=== PATIENT | male | born 1940 | race Caucasian/White ===

== ENCOUNTER → 2016-07-09 | Outpatient (CLI) | payer MEDICARE ==
[2016-07-09 09:12] LABS: CH 33.4; CHCM 32.7; HCT 41.5 % (39.0-53.0); HDW 2.21; HGB 13.5 gm/dL (13.0-17.5); MCH 33.3 pg (25.0-35.0); MCHC 32.4 g/dL (31.0-37.0); MCV 102.6 fL (80.0-100.0); Macrocytosis Slight; Mean Platelet Volume 6.8; RBC 4.05 m/uL (4.30-5.90); RDW 14.9 % (11.5-15.5)
[2016-07-09 09:52] LABS: Anion Gap 9 mmol/L; Blood Urea Nitrogen 39 mg/dL (9-20); Carbon Dioxide 27 mmol/L (22-30); Chloride 105 mmol/L (98-107); Non-African American GFR(MDRD) 55 (>60 ml/min/1.73 sqM); Sodium 141 mmol/L (137-145)
== END | disposition home or self-care (01) ==
LOC: LABWHC1 08:44
PROVIDERS: ATTEND Internal Medicine Interventional Cardiology
DX: Z01.812 Encounter for preprocedural laboratory examination (principal); R94.39 Abnormal result of other cardiovascular function study
CPT/HCPCS: 36415; 80051; 82565; 84520; 85027

== ENCOUNTER 2016-07-15 07:01 | Day surgery (SDC) | payer MEDICARE, OTHER ==
[2016-07-11 15:46] VITALS: BMI 26.9
[~2016-07-15 07:01] MED LIST: ALPRAZolam 0.25 MG TAB PO PRN; ALPRAZolam 0.5 MG TAB PO PRN; ASPIRIN 325 MG TAB PO STA; ATORVASTATIN 80 MG TAB PO STA; NITROGLYCERIN SL TABS 0.4 MG TAB SUBLINGUAL PRN; SODIUM CHLORIDE 0.9% 1,000 ML in EMPTY BAG 1 BAG IV ONE
[2016-07-15] MEDS ORDERED: SODIUM CHLORIDE 0.9% 1,000 ML IV SCH ×2 (07:30→12:00)
[2016-07-15 08:13] LABS: INR 1.1 (<1.1); Prothrombin Time 11.1 sec (9.0-12.0)
[2016-07-15 08:30] VITALS: TEMP 97.7
[2016-07-15] MEDS ORDERED: LIDOCAINE 2% INJ 20 MG/ML (20 ML MDV) ONE (10:01)
[2016-07-15] MEDS ORDERED: diphenhydrAMINE 50 MG/ML 1 ML VIAL ONE (10:01)
[2016-07-15] MEDS ORDERED: MIDAZOLAM 2 MG/2 ML VIAL ONE (10:01)
[2016-07-15] MEDS: MIDAZOLAM 2 MG/2 ML VIAL IV ONE ×2 (10:57→11:18)
[2016-07-15] MEDS ORDERED: LIDOCAINE 2% INJ 20 MG/ML SQ ONE (11:02)
[2016-07-15] MEDS ORDERED: IOHEXOL 350 MG/ML 125ML BOTTLE INJ ONE (11:43)
[2016-07-15] MEDS ORDERED: RX INFO: IV CONTRAST WAS GIVEN 1 EACH MISC MISCELLANE PRN (11:59)
--- NOTE | 2016-07-15 13:55 | CC ---
DATE OF SERVICE: 07/15/2016 PROCEDURE: Left heart catheterization, coronary angiography and selective injection of bypass grafts. PERFORMED BY: Dr. Wilbert Christiansen. CLINICAL INFORMATION: Mr. Khari Morales is a 76-year-old gentleman with a known history of hypertension, hyperlipidemia, chronic adrenal insufficiency who underwent aortocoronary bypass surgery that was performed in 1994 with RAMIREZ to LAD and a vein graft to the diagonal. In January 2014 and the diagonal graft was highly diseased and the ostium, but RAMIREZ was patent and there was ostial stenosis of left main of 70%. I performed stenting of the ostium of the left main. Recent stress revealed anteroapical reversible defect. He was therefore advised cardiac catheterization. Risks, benefits, options, rationale were discussed. PROCEDURE NOTE: Under local anesthesia and strict aseptic precautions, a 6 Pakistani introducer was placed in the right femoral artery. Patient had extreme tortuosity and I had to use multiple dilators and Amplatz wire and the long sheath. Using standard left Jared catheter, I performed selective coronary angiography of the left system. I used a standard right of her right coronary artery then a Mer catheter for the RAMIREZ and I tried to get selective injection of the vein graft to the diagonal but I got subselective injection with a AR-2. LV pressures were checked but LV gram was not performed. The sheath was then taken out and Angio-Seal device used to secure hemostasis and patient was sent to the room in stable condition. He was advised continued medical therapy. It appears that the vein graft to the diagonal is occluded. Patient received moderate conscious sedation for a total duration of 45 minutes. He was monitored closely and his oxygenation was good. CARDIAC CATHETERIZATION FINDINGS: The left ventricle end-diastolic pressure was in the normal range. CORONARY ANGIOGRAPHIC FINDINGS: RIGHT CORONARY ARTERY: The right coronary artery is a nondominant vessel, minor irregularities. No significant disease. LEFT MAIN CORONARY ARTERY: This vessel is widely patent. The ostium at the site of stenting has no more than 20% stenosis with good flow. The 2 obtuse marginal branches are opacified. The second obtuse marginal was stented, widely patent, distal posterolateral branch are also free of significant disease. Circumflex system appears to be patent. Left internal mammary artery graft: This graft is widely patent and opacifies the entire LAD and supplies a sizable amount of myocardium, but the diagonal vessel was not opacified. Left anterior descending coronary artery: This vessel is totally occluded after comes off from the left main and no antegrade flow was noted. Left posterior circumflex coronary artery: Good caliber vessel. It gives off a small obtuse marginal proximally with second obtuse marginal was stented is patent and distal posterolateral branch free of significant disease. Saphenous vein graft to diagonal branch: This graft was subselectively injected and is found to be totally occluded. 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 The stented segment involving the ostium of the left main is widely patent. RAMIREZ is patent and [place] RCA, which is nondominant is free of significant disease. RECOMMENDATIONS: I am recommending aggressive medical therapy without any percutaneous intervention. Findings were discussed with the patient and and he will be discharged later on today if he remains stable. I will be seeing him in the office in one week.
--- NOTE | 2016-07-15 13:57 | LTR ---
July 15, 2016 RE: Khari Morales Mayur Dear Dr. Coello: Thank you for the opportunity to participate in the care of Mr. Khari Morales. I am pleased to report to you that this gentleman had coronary angiography which revealed that the previously stented left main was widely patent. His RAMIREZ to LAD is patent, and the [place] RCA is a small nondominant and disease-free. The vein graft to the diagonal is occluded and this may represent area of ischemia seen on the stress test. I am recommending continued medical therapy without intervention. This is graft that is 22 years old and no intervention necessary for this and I could not selectively inject suggests that the graft is occluded and this was highly diseased in 2013. We will therefore pursue medical therapy and no intervention necessary. Thank you for your referral. Please call for questions. With kind personal regards, Sincerely, KALE BALDWIN MD
[2016-07-15] MEDS ORDERED: ACETAMINOPHEN TAB 325 MG TAB PO STA (17:29)
[2016-07-15 17:44] VITALS: RESP 18
[2016-07-15 18:17] VITALS: PULSE 60
[2016-07-15 18:19] VITALS: BP 100/69
--- NOTE | 2016-07-16 07:52 | ECHOF ---
Referral Reason:CAD, previous CABG MEASUREMENTS -------- HEIGHT: 170.2 cm WEIGHT: 78.0 kg BP: 102/67 RVIDd: 3.7 cm (< 3.3) IVSd: 1.4 cm (0.6 - 1.1) LVIDd: 3.7 cm (3.9 - 5.3) LVPWd: 1.4 cm (0.6 - 1.1) IVSs: 1.8 cm LVIDs: 3.2 cm LVPWs: 1.7 cm LA Diam: 3.8 cm (2.7 - 3.8) LAESV Index (A-L): 19.66 ml/m Ao Diam: 4.0 cm (2.0 - 3.7) AV Cusp: 1.1 cm (1.5 - 2.6) MV EXCURSION: 7.809 mm (> 18.000) MV EF SLOPE: 41 mm/s (70 - 150) EPSS: 1.5 cm MV E [place]win: 0.70 m/s MV DecT: 307 ms MV A [place]win: 0.92 m/s MV E/A Ratio: 0.76 AV maxP.99 mmHg AV meanP.49 mmHg RAP: 5.00 mmHg RVSP: 24.33 mmHg FINDINGS -------- Sinus rhythm. This was a technically adequate study. The left ventricular size is normal. There is moderate concentric left ventricular hypertrophy. Overall left ventricular systolic function is low-normal with, an EF between 50 - 55 %. The right ventricle is mildly enlarged. Normal LA size by volume 22+/-6 ml/m2. The right atrium is normal in size. There is mild to moderate aortic valve sclerosis. There is mild aortic regurgitation. There is mild aortic stenosis present. Peak/mean gradient across the Aortic Valve is 17.99mmHg / 10.49mmHg. The mitral valve leaflets are mildly thickened. Mild mitral annular calcification present. Mild mitral regurgitation is present. Mild tricuspid regurgitation present. Right ventricular systolic pressure is normal at < 35 mmHg. Trace/mild (physiologic) pulmonic regurgitation. The aortic root is dilated measuring 4.0cm. Ascending AO up to 44 mm Normal inferior vena cava with normal inspiratory collapse consistent with estimated right atrial pressure of 5 mmHg. The pericardium is normal. CONCLUSIONS -------- 1. Sinus rhythm. 2. There is mild aortic stenosis present. 3. Peak/mean gradient across the Aortic Valve is 17.99mmHg / 10.49mmHg. 4. The mitral valve leaflets are mildly thickened. 5. Mild mitral annular calcification present. 6. Mild mitral regurgitation is present. 7. Mild tricuspid regurgitation present. 8. Right ventricular systolic pressure is normal at < 35 mmHg. 9. Trace/mild (physiologic) pulmonic regurgitation. 10. The aortic root is dilated measuring 4.0cm. 11. Ascending AO up to 44 mm 12. This was a technically adequate study. 13. Normal inferior vena cava with normal inspiratory collapse consistent with estimated right atrial pressure of 5 mmHg. 14. The pericardium is normal. 15. The left ventricular size is normal. 16. There is moderate concentric left ventricular hypertrophy. 17. Overall left ventricular systolic function is low-normal with, an EF between 50 - 55 %. 18. The right ventricle is mildly enlarged. 19. Normal LA size by volume 22+/-6 ml/m2. 20. There is mild to moderate aortic valve sclerosis. 21. There is mild aortic regurgitation. PUBLIC SAFETY OFFICER: Dafne Juarez RDCS
== END 2016-07-15 18:05 | disposition home or self-care (01) ==
LOC: CATHCVL 07:01
PROVIDERS: ATTEND Internal Medicine Interventional Cardiology
DX: I25.720 Atherosclerosis of autologous artery coronary artery bypass graft(s) with unstable angina pectoris (principal); I25.82 Chronic total occlusion of coronary artery; I08.3 Combined rheumatic disorders of mitral, aortic and tricuspid valves; T82.855A Stenosis of coronary artery stent, initial encounter; E27.49 Other adrenocortical insufficiency; I10 Essential (primary) hypertension; I47.1 Supraventricular tachycardia; I48.0 Paroxysmal atrial fibrillation; Z82.49 Family history of ischemic heart disease and other diseases of the circulatory system; E78.00 Pure hypercholesterolemia, unspecified; Z95.5 Presence of coronary angioplasty implant and graft; E03.9 Hypothyroidism, unspecified; Z79.82 Long term (current) use of aspirin; Z79.899 Other long term (current) drug therapy; Z88.2 Allergy status to sulfonamides
CPT/HCPCS: 93306; 93459; 85610; 99152; 99153 ×2; C1769 ×4; C1760; C1894 ×2; J2001; J2250; Q9967

== ENCOUNTER → 2016-07-30 | Outpatient (CLI) | payer MEDICARE ==
[2016-07-30 12:12] LABS: ALT 43 U/L (21-72); AST 31 U/L (17-59); Alkaline Phosphatase 52 U/L (38-126); Anion Gap 9 mmol/L; Blood Urea Nitrogen 39 mg/dL (9-20); Calcium 9.9 mg/dL (8.4-10.2); Carbon Dioxide 27 mmol/L (22-30); Chloride 103 mmol/L (98-107); Glucose 91 mg/dL (74-99); Non-African American GFR(MDRD) 51 (>60 ml/min/1.73 sqM); Potassium 4.6 mmol/L (3.5-5.1); Sodium 139 mmol/L (137-145); Total Bilirubin 0.7 mg/dL (0.2-1.3); Total Protein 6.7 g/dL (6.3-8.2)
== END | disposition home or self-care (01) ==
LOC: LABWHC1 11:05
PROVIDERS: ATTEND Internal Medicine Endocrinology, Diabetes & Metabolism
DX: E03.9 Hypothyroidism, unspecified (principal); I10 Essential (primary) hypertension; E55.9 Vitamin D deficiency, unspecified
CPT/HCPCS: 36415; 80053; 82306; 84402; 84403; 84439; 84443

== ENCOUNTER → 2016-09-04 | Outpatient (CLI) | payer MEDICARE | END | disposition home or self-care (01) | LOC: LABPAT 11:51 | PROVIDERS: ATTEND Orthopaedic Surgery | DX: Z01.812 Encounter for preprocedural laboratory examination (principal) | CPT/HCPCS: 87070 ==

== ENCOUNTER 2016-09-30 06:39 | Inpatient (IN) | payer MEDICARE ==
[2016-09-22 10:54] VITALS: BMI 27.4
--- NOTE | 2016-09-29 12:29 | HP ---
CHIEF COMPLAINT: Left shoulder pain. HISTORY OF PRESENT ILLNESS: The patient is a 76-year-old right hand dominant male who presents with progressive left shoulder pain worsening over the past several years. He notes he is having pain with any attempted use and at night. He has tried injections along with medications with only partial temporary relief. Past medical history is significant for heart disease, Schley's disease, hypothyroidism, hyperlipidemia and hypertension. PAST SURGICAL HISTORY: Significant for coronary artery bypass grafting, multiple cardiac stents, hernia repair, sinus surgery and tonsillectomy. CURRENT MEDICATIONS: 1. Atorvastatin. 2. Aspirin. 3. Plavix. 4. Coumadin. 5. Oral steroids. 6. Synthroid. He notes allergies to SULFA. FAMILY HISTORY: Significant for heart disease. SOCIAL HISTORY: Negative for current tobacco or alcohol use. Sixteen-point review of systems, otherwise, reviewed and is noncontributory. On examination, the patient is approximately 5 feet 6 inches, 180 pounds of mesomorphic habitus. HEENT exam is nonfocal. Neck is supple. On examination of his left shoulder, he is tender about the anterior glenohumeral joint. He has moderate subacromial crepitus. Active range of motion. Forward elevation 95 degrees, external rotation with arm to side 10 degrees, internal rotation to L5. Passively may be able to forward elevate him to 100 degrees. Motor strength is 5 minus over 5 for abduction and external rotation. Davis, Neer, and speed test are positive. His distal neurovascular exam appears to be intact in the left upper extremity. Two views of the left shoulder obtained in the office show severe glenohumeral joint osteoarthrosis with maintained humeral head to ( ) distance. IMPRESSION: 1. Severe left glenohumeral joint osteoarthrosis. 2. History of heart disease and atrial fibrillation on chronic anticoagulation. 3. History of Schley's disease. RECOMMENDATIONS: I talked to the patient at length regarding his treatment options. At this time point, he opts to proceed with surgery. We will plan to proceed with left total shoulder arthroplasty. We will reinstitute his Coumadin therapy postoperatively. He underwent preoperative cardiac evaluation by Dr. Wilbert Christiansen. [facility]
[~2016-09-30 06:39] MED LIST changes: +ACETAMINOPHEN TAB 500 MG TAB PO ONE; -ALPRAZolam 0.25 MG TAB PO PRN; -ALPRAZolam 0.5 MG TAB PO PRN; -ASPIRIN 325 MG TAB PO STA; -ATORVASTATIN 80 MG TAB PO STA; +DEXAMETHASONE SOD PHOSPHATE 10 MG/ML 1 ML VIAL IV ONE; +HYDROmorphone 1 MG/ML 1 ML SYRINGE IVP PRN; +MELOXICAM 7.5 MG TAB PO ONE; +MIDAZOLAM 2 MG/2 ML VIAL IV PRN; -NITROGLYCERIN SL TABS 0.4 MG TAB SUBLINGUAL PRN; +ONDANSETRON 4 MG/2 ML VIAL IVP ONE; -SODIUM CHLORIDE 0.9% 1,000 ML in EMPTY BAG 1 BAG IV ONE; +TRANEXAMIC ACID 1,000 MG in SODIUM CHLORIDE 0.9% 100 ML IVPB ONE; +ceFAZolin 2 GM in SODIUM CHLORIDE 0.9% 100 ML IVPB ONE
[2016-09-30] MEDS: LACTATED RINGERS 1,000 ML IV SCH (07:10)
[2016-09-30] MEDS ORDERED: LIDOCAINE 1% 20 ML VIAL (10MG/ML) FOR IV START INTRADERMA ONE (07:10)
[2016-09-30 07:15] LABS: Glucose,Whole Blood 93 mg/dL (75-99)
[2016-09-30] MEDS ORDERED: HYDROCORTISONE SUCCINATE 100 MG/2 ML VIAL IV ONE (07:17)
[2016-09-30] MEDS ORDERED: MIDAZOLAM 2 MG/2 ML VIAL IV ONE (07:29)
[2016-09-30 07:32] LABS: INR 1.2 (<1.2); Partial Thromboplastin Time 25.9 sec (22.0-30.0); Prothrombin Time 12.3 sec (9.0-12.0)
[2016-09-30] MEDS ORDERED: fentaNYL (PF) 50 MCG/ML 2 ML AMP ONE (08:00)
[2016-09-30] MEDS ORDERED: GLYCOPYRROLATE 0.2 MG/ML 2 ML VIAL ONE (08:00)
[2016-09-30] MEDS ORDERED: SUCCINYLCHOLINE CHLORIDE 100 MG/5 ML SYR IV ONE (08:00)
[2016-09-30] MEDS ORDERED: LIDOCAINE 1% INJ 10MG/ML (20 ML MDV) ONE (08:00)
[2016-09-30] MEDS ORDERED: PHENYLEPHRINE-0.9% NACL SYG 1 MG/10 ML SYRINGE ONE (08:00)
[2016-09-30] MEDS ORDERED: PROPOFOL 10 MG/ML 20 ML VIAL IV ONE (08:00)
[2016-09-30] MEDS ORDERED: ROCURONIUM BROMIDE 10 MG/ML 10 ML VIAL IV ONE (08:00)
[2016-09-30] MEDS ORDERED: NEOSTIGMINE 1 MG/ML 10 ML VIAL ONE (08:00)
[2016-09-30] MEDS ORDERED: ceFAZolin 3,000 MG in SODIUM CHLORIDE 0.9% IRRIGATIO 3,000 ML IRRIGATION ONE (08:44)
[2016-09-30] MEDS ORDERED: LACTATED RINGERS 1,000 ML IV ONE ×3 (09:21→11:04)
[2016-09-30] MEDS ORDERED: HYDROcodone/APAP 5-325MG 1 EACH TAB PO PRN (09:58)
[2016-09-30] MEDS ORDERED: ONDANSETRON 4 MG/2 ML VIAL IVP PRN (09:58)
[2016-09-30] MEDS ORDERED: HYDROmorphone 1 MG/ML 1 ML SYRINGE IVP PRN (09:58)
[2016-09-30] MEDS ORDERED: SENNOSIDES-DOCUSATE SODIUM 1 EACH TAB PO PRN (09:58)
--- NOTE | 2016-09-30 10:35 | P.OP ---
Date of Procedure: 09/30/16 Preoperative Diagnosis: Severe left glenohumeral joint osteoarthrosis Postoperative Diagnosis: Same Procedure(s) Performed: Left total shoulder arthroplasty Implants: [employer] AP size 12 press-fit humeral stem and body, 52 mm +18 eccentric humeral head, 52 mm cemented pegged glenoid. Anesthesia: OJ Surgeon: Miguel Angel Downs Marine Diesel Mechanic #1: Roberto Elizabeth Estimated Blood Loss (ml): 200 Pathology: other (Humeral head) Condition: stable Disposition: PACU Indications for Procedure: The patient is a 76-year-old male who presents with progressive left shoulder pain secondary to osteoarthrosis despite conservative measures. A discussion of the risks and benefits of operative intervention versus continued conservative measures was made with the patient. He opted to proceed with surgery. Operative risks to include infection, neurovascular injury, development of blood clots, possible dislocation, possible component loosening and need for subsequent procedures was discussed. Informed consent was obtained. Operative Findings: As below Description of Procedure: The patient was brought to the operating room, and after induction of general anesthesia was placed into a beachchair position. The bony prominences were appropriately padded. The left upper extremity was prepped and draped in normal fashion. A deltopectoral incision was made starting lateral to the coracoid process extending approximately 12 cm. The skin was incised sharply. Subcu change tissues were divided bluntly. Electrocautery was used for hemostasis. The cephalic vein was identified and gently retracted laterally with the deltoid. Subdeltoid adhesions were bluntly dissected. The upper one third of the pectoralis tendon was released to facilitate exposure. The biceps tendon was identified and bicipital groove opened. The biceps was tenotomized and allowed to retract distally. The rotator interval was opened to level the glenoid. A lesser tuberosity osteotomy was then performed with a sagittal saw. The head was then exposed by releasing the capsule directly off the humeral neck. The head was then dislocated. A starting hole was made in line with the humeral shaft and the shaft was reamed by hand up to a size 12. There was good distal fit and chatter. The cutting guide was utilized in line with the rotator cuff insertion. 30 of retroversion was planned. The head was then resected with a sagittal saw. The remaining osteophytes were removed flush with the cortical bone. Attention was then paid towards preparing the glenoid. A retractor was placed anterior and posteriorly. The labral tissue was released from the 6:00 to 12 o'clock position. I had good glenoid exposure at this point. A starting pin was placed in the central portion of the glenoid. A 52 mm reamer was utilized taking this down to bleeding bony surface. Central peg hole was drilled. The alignment guide was placed. The peripheral peg holes were drilled. The trial size 52 component was placed and had good anterior to posterior and inferior to superior fit. The trial component was then removed. The peripheral peg holes were pressurized with cement. Excess cement was removed. The size 52 central peg glenoid was inserted. This was impacted. This is held in place until the cement had sufficiently hardened. Attention was then paid towards preparing the proximal humerus. A size 12 broach was inserted in 30 of retroversion was fully seated. The trial size 12 humeral stem was inserted in the same orientation and an eccentric 52 x 18 mm trial head was placed. The shoulder was gently reduced. It was taken through range of motion. Had good stability in flexion and extension with internal and external rotation. I felt there was adequate uatsdin of soft tissue tension. Shoulder was dislocated. The trial components were then removed. The final humeral stem was inserted again at 30 of retroversion and was fully seated. There was good rotational stability. The eccentric 52 mm x 18 mm humeral head was gently impacted in the same orientation. The shoulder was gently reduced. Again it was taken through range of motion felt to be stable. All style lavage was utilized. The lesser tuberosity osteotomy was repaired with #2 Ethibond suture. The rotator interval was repaired with #2 Ethibond suture. The deltopectoral interval was closed with interrupted 2-0 Vicryl sutures. The subcutaneous tissues were reapproximated with interrupted 2-0 Vicryl sutures. The skin was reapproximated 3-0 subcuticular strata fix suture. Skin tape and adhesive was applied. A sterile dressing was applied in addition to a sling. The patient was awoken from general anesthesia and transferred to recovery room in good condition. Blood loss estimated 200 mL. No complications were incurred. Sponge and needle counts were correct in the case.
[2016-09-30 10:50] LABS: Glucose,Whole Blood 126 mg/dL (75-99)
--- NOTE | 2016-09-30 11:45 | XR ---
Limited left shoulder HISTORY: Postop Single frontal view of the left shoulder, no comparisons Patient is status post left shoulder arthroplasty. There is anatomic alignment. Lucency is present in the soft tissues. Overlying cardiac leads. Basilar atelectatic changes are present. IMPRESSION: Orthopedic follow-up
[2016-09-30] MEDS ORDERED: NITROGLYCERIN SL TABS 0.4 MG TAB SUBLINGUAL PRN (16:12)
[2016-09-30] MEDS ORDERED: LEVOTHYROXINE 50 MCG TAB PO SCH (16:15)
[2016-09-30 16:23] LABS: Glucose,Whole Blood 113 mg/dL (75-99)
[2016-09-30] MEDS: ceFAZolin 2 GM in SODIUM CHLORIDE 0.9% 100 ML IVPB SCH (16:59)
[2016-09-30] MEDS ORDERED: WARFARIN 7.5 MG TAB PO SCH (18:00)
[2016-09-30] MEDS ORDERED: LACTATED RINGERS 250 ML IV ONE (18:21)
[2016-09-30] MEDS: HYDROmorphone 1 MG/ML 1 ML SYRINGE IVP PRN (18:33)
[2016-09-30] MEDS ORDERED: WARFARIN 5 MG TAB PO ONE (19:30)
[2016-09-30] MEDS ORDERED: PRAMIPEXOLE 1 MG TAB PO SCH (21:00)
[2016-10-01] MEDS: ceFAZolin 2 GM in SODIUM CHLORIDE 0.9% 100 ML IVPB SCH (00:04)
[2016-10-01] MEDS: HYDROmorphone 1 MG/ML 1 ML SYRINGE IVP PRN (06:14)
[2016-10-01] MEDS ORDERED: LEVOTHYROXINE 25 MCG TAB PO SCH (06:30)
[2016-10-01 07:34] LABS: Basophils % (A) 0 %; CH 33.7; CHCM 32.8; Eosinophils % (A) 0 %; HCT 30.1 % (39.0-53.0); HDW 2.35; HGB 9.8 gm/dL (13.0-17.5); Luc # (Auto) 0.17; Luc % (Auto) 2; Lymphocytes # (A) 2.2 k/uL (1.0-4.8); Lymphocytes % (A) 27 %; MCH 33.5 pg (25.0-35.0); MCHC 32.5 g/dL (31.0-37.0); Macrocytosis Slight; Mean Platelet Volume 6.8; Monocytes # (A) 0.5 k/uL (0-1.0); Monocytes % (A) 6 %; Neutrophils # (A) 5.2 k/uL (1.3-7.7); Neutrophils % (A) 64 %; RBC 2.92 m/uL (4.30-5.90); RDW 13.2 % (11.5-15.5); WBC 8.1 k/uL (3.8-10.6); WBC (Perox) 8.27
[2016-10-01 07:39] LABS: INR 1.2 (<1.2); Prothrombin Time 11.8 sec (9.0-12.0)
--- NOTE | 2016-10-01 07:50 | CONS ---
DATE OF SERVICE: 09/30/2016 REASON FOR CONSULTATION: Medical management requested by Dr. Downs. CONSULTATION: This is a very pleasant 76-year-old patient of Dr. Coello. Chronic stable medical conditions include atrial fibrillation, coronary artery disease, gastroesophageal reflux disease, obstructive sleep apnea uses CPAP machine, hypothyroidism, Addisons disease, restless leg syndrome, depression and has dilated right pupil and aortic aneurysm. Underwent a total left shoulder arthroplasty. Some pain is present. No nausea or vomiting. Postoperative did drop his blood pressure to 90s systolic and I ordered a fluid bolus. Denies any chest pain or shortness of breath. Sitting up in bed though tired appearing. is at the bedside. REVIEW OF SYSTEMS: CONSTITUTIONAL: Tired. HEENT: Decreased hearing. RESPIRATORY: None. CARDIOVASCULAR: None. GASTROINTESTINAL: Heartburn. GENITOURINARY: None. MUSCULOSKELETAL: Pain in different joints. DERMATOLOGICAL: None. HEMATOLOGICAL: None. LYMPHATIC: None. PSYCHIATRY: Depression controlled. NEUROLOGICAL: None. PAST HISTORY: Atrial fibrillation, coronary artery disease, gastroesophageal reflux disease, osteoarthritis, obstructive sleep apnea, hypothyroidism, [place] disease, restless leg syndrome, depression, right fixed pupil. PAST SURGICAL HISTORY: Appendectomy, coronary bypass, cardiac cath with stent, septoplasty, bilateral cataract surgery, bilateral retina surgery. SOCIAL HISTORY: No smoking, no alcohol. Patient was a preacher. FAMILY HISTORY: DVT. HOME MEDICATIONS: 1. Requip 0.5 mg p.o. q.h.s. 2. Coumadin 3.75 mg Thursday, Thursday and Thursday and 7.5 mg Thursday, Thursday, and Thursday. 3. Mirapex 1 mg p.o. q.h.s. 4. Nitrostat 0.4 sublingual q.5 p.r.n. 5. Metoprolol 75 mg p.o. daily. 6. Synthroid 50 mcg Thursday, Thursday, , Thursday, Thursday and 25 mcg on Thursday and Thursday. 7. Cortef 10 mg at 4:00 p.m. and 20 mg in the morning. 8. Florinef 1 mg Thursday, , Thursday and Thursday. 9. Prozac 10 mg p.o. daily. 10. Vitamin D2 50,000 units p.o. monthly. 11. Plavix 75 mg p.o. daily. 12. Calcium 1200 mg p.o. daily. 13. Lipitor 40 mg p.o. daily. 14. Aspirin 81 mg p.o. daily. 15. Tylenol. ALLERGIES TO BEE POLLEN, SULFA, WASP. On examination, temperature 96, pulse 93, respirations 17, blood pressure 197/50 , pulse ox 96% on room air. GENERAL APPEARANCE: Average built, sitting up, awake, tired appearing. EYES: Pupils equal, conjunctivae normal. HEENT: External appearance of nose and ears normal. Oral cavity normal. NECK: JVD not raised. Mass not palpable. RESPIRATORY: Effort normal. LUNGS: Fair entry. CARDIOVASCULAR: Fist and second sounds are normal. No edema. ABDOMEN: Soft, nontender. Liver and spleen not palpable. LYMPHATIC: No lymph node in neck or axillae. PSYCHIATRIC: Alert, oriented x3. Mood and affect normal. EXTREMITIES: Left shoulder has dressing. Left arm in support. Sensation in the hand is present. INVESTIGATIONS: INR 1.2, Accu-Cheks are noted. ASSESSMENT: 1. Left total shoulder arthroplasty. 2. Paroxysmal atrial fibrillation. 3. Coronary artery disease with history of bypass and stent. 4. Gastroesophageal reflux disease. 5. 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 6. Obstructive sleep apnea uses a CPAP machine. 7. Addisons disease. 8. Restless leg syndrome. 9. Right pupil is fixed. 10. Hypothyroidism. 11. Depression, not otherwise specified. 12. Aortic aneurysm. PLAN: Patients Coumadin could be resumed when okay with Orthopedics. Home medications otherwise to be resumed. Care was discussed with the patient. Patient to use h is CPAP machine. When discharged he is to follow up with his family doctor, Dr. Coello. Care was discussed with patients . Questions were answered. Thank you Dr. Downs. [facility]
[2016-10-01] MEDS: LACTATED RINGERS 1,000 ML IV SCH (08:34)
[2016-10-01] MEDS ORDERED: CLOPIDOGREL 75 MG TAB PO SCH (09:00)
[2016-10-01] MEDS ORDERED: METOPROLOL TARTRATE 25 MG TAB PO SCH (09:00)
[2016-10-01] MEDS ORDERED: FLUDROCORTISONE 0.1 MG TAB PO SCH (09:00)
[2016-10-01] MEDS ORDERED: CALCIUM CARBONATE 500 MG CHEWABLE PO SCH (09:00)
[2016-10-01] MEDS ORDERED: HYDROCORTISONE 10 MG TAB PO SCH ×2 (09:00→16:00)
[2016-10-01] MEDS ORDERED: ATORVASTATIN 40 MG TAB PO SCH (09:00)
[2016-10-01] MEDS ORDERED: FLUoxetine HCL 10 MG CAP PO SCH (09:00)
[2016-10-01 11:08] VITALS: PULSE 97
--- NOTE | 2016-10-01 11:35 | P.PN ---
Subjective Principal diagnosis: Status post left total shoulder arthroplasty Patient is seen today resting in his hospital bed, he appears comfortable. Pain is well-controlled with current medication. He denies headaches, lightheadedness, chest pain, shortness of breath, or chills. Objective - Vital Signs Vital signs: Vital Signs Temp 97.3 F L 10/01/16 08:30 Pulse 88 10/01/16 08:30 Resp 18 10/01/16 08:30 BP 86/54 10/01/16 08:30 Pulse Ox 94 L 10/01/16 08:30 Intake & Output 09/30/16 10/01/16 10/01/16 18:59 06:59 18:59 Intake Total 3186 700 350 Output Total 600 1200 1200 Balance 2586 500 -850 Weight 77.111 kg 77.111 kg Intake: IV 1826 Intake, IV Titration 40 700 Amount Lactated Ringers 1,000 ml 40 @ 20 mls/hr IV .Q24H [facility] Rx#:[id number] Lactated Ringers 1,000 ml 600 As IV .[facility] ONE Rx#: [id number] ceFAZolin 2 gm In Sodium 100 Chloride 0.9% 100 ml @ 100 mls/hr IVPB ONCE ONE Rx#:[id number] Oral 1320 350 Output: Urine 400 1200 1200 Estimated Blood Loss 200 Other: Voiding Method Indwelling Catheter Indwelling Catheter Indwelling Catheter - Exam Left upper extremity: Initial postoperative bandage is removed, incisions clean, dry, and intact. There is ecchymosis and swelling present noted in the upper arm, more on the medial aspect trending toward elbow. Wrist extension and flexion are intact, he is able to pronate and supinate fully at the wrist. He can make a full fist with no difficulty. Sensation to light touch throughout extremities intact, radial pulses 2+. - Labs CBC & Chem 7: 10/01/16 07:16 Labs: Abnormal Lab Results - Last 24 Hours (Table) 09/30/16 10/01/16 10/01/16 Range/Units 16:16 07:16 07:16 RBC 2.92 L (4.30-5.90) m/uL Hgb 9.8 L (13.0-17.5) gm/dL Hct 30.1 L (39.0-53.0) % MCV 103.0 H (80.0-100.0) fL INR 1.2 H (<1.2) POC Glucose (mg/dL) 113 H (75-99) mg/dL Assessment and Plan Plan: Assessment: 1. Postop day #1 status post left total shoulder arthroplasty Plan: 1. Pain control, continue current medication 2. Daily dressing changes/ice the shoulder 3. GI and DVT prophylaxis, he'll resume his home anticoagulation schedule 4. Medical recommendations 5. Discharge planning: Patient is likely be discharged home today Time with Patient: Less than 30
--- NOTE | 2016-10-01 11:38 | P.DS ---
Providers Date of admission: 09/30/16 06:39 Expected date of discharge: 10/01/16 Attending physician: Miguel Angel Downs Consults: 09/30/16 10:00 Consult Physician Routine Consulting Provider: Rj Paredes Consult Reason/Comments: medical management Do you want consulting provider notified?: Yes 09/30/16 10:03 Consult Physician Routine Consulting Provider: Mera Christiansen Consult Reason/Comments: Medical Management Do you want consulting provider notified?: Yes Primary care physician: Camacho Reyes [place] Hospital Course: Date of admission: 09/30/2016 Date of discharge: 10/01/2016 Admission diagnosis: Status post left total shoulder arthroplasty Discharge diagnosis: Same Attending physician: Dr. Downs Surgical procedures: Left total shoulder arthroplasty Brief history: Patient is a 76-year-old male with a history of progressive primary left shoulder osteoarthritis. At this point patient has failed conservative treatment measures and has opted to proceed with a elective left total shoulder arthroplasty. Hospital course: Details of patient's surgery can be found in operative report. Patient tolerated the procedure well and was subsequently transported to orthopedic floor. Patient's orthopeidc and medical care was provided daily. Patient had daily laboratory tests performed for evaluation of overall blood counts. Patient was treated with Plavix and Coumadin for their postoperative DVT prophylaxis during their inpatient stay. Patient was noted to have a relatively uneventful postoperative course. Patient reported satisfactory pain control with oral pain medications by postoperative day 0. Patient showed satisfactory progress with physical therapy. Patient moved steadily through the program and had no difficulty meeting the goals by postoperative day 2. Given patient's otherwise satisfactory course and having met physical therapy goals, plan is to discharge patient home on postoperative day 2. Discharge condition/disposition: Patient will be discharged home in stable condition. Discharge medications: Instructions are given on resumption of patient's normal daily medications per primary care recommendation, in addition patient will be prescribed [place] 5 mg/325 mg, Colace 100 mg. Discharge instructions: 1. Wound care and infection precautions, keep incision dry and covered while showering, no lotions, creams, moisturizers. No soaking, tubs, pools, hottubs. Do not scrub over the incision. 2. Utilize arm sling and pendular exercises daily 3. Ice and elevate when necessary. Do not exceed 20 minutes per hour with ice pack. 4. Utilize compression sleeve until seen at first follow up appointment. 5. Pain meds and anticoagulants per prescription. 6. Pain medication has potential to cause constipation. Increase oral fluid and fiber intake. Contact primary care provider if you have not had a bowel movement within 48 hours after discharge 7. No anti-inflammatory medication until discussed at first post operative visit, this including Motrin, Aleve, Mobic, Diclofenac. 8. Follow up in office at 2 weeks postop with Darío Elizabeth PA-C 9. Follow up with your primary care doctor 7-10 days after discharge. 10. Contact [facility] with any questions, . Procedures: Left total shoulder arthroplasty Patient Condition at Discharge: Good Plan - Discharge Summary New Discharge Prescriptions: New Hydrocodone/Acetaminophen [[place] 5-325] 1 - 2 each PO Q6HR PRN #60 tab PRN Reason: Pain Docusate [Colace] 100 mg PO DAILY #30 capsule No Action Warfarin [Coumadin] 7.5 mg PO SUTUTHSA Aspirin 81 mg PO DAILY Fludrocortisone [Florinef] 0.1 mg PO WETHFRSA Levothyroxine Sodium [Synthroid] 25 mcg PO SUWE Levothyroxine Sodium [Synthroid] 50 mcg PO MOTUTHFRSA Ergocalciferol [Vitamin D2 (DRISDOL)] 50,000 unit PO QMONTH Clopidogrel [Plavix] 75 mg PO DAILY #90 tab Warfarin [Coumadin] 3.75 mg PO MOWEFR Nitroglycerin Sl Tabs [Nitrostat] 0.4 mg SUBLINGUAL Q5M PRN PRN Reason: Chest Pain Hydrocortisone [Cortef] 20 mg PO QAM Hydrocortisone [Cortef] 10 mg PO DAILY@1600 FLUoxetine HCL [PROzac] 10 mg PO DAILY Metoprolol Tartrate 75 mg PO QAM Pramipexole [Mirapex] 1 mg PO HS rOPINIRole HCL [Requip] 0.5 mg PO HS Acetaminophen Tab [Tylenol Tab] 1,000 mg PO Q6HR PRN PRN Reason: Pain Atorvastatin [Lipitor] 40 mg PO DAILY Calcium Carbonate [Calcium] 1,200 mg PO DAILY Discharge Medication List Aspirin 81 mg PO DAILY 11/17/13 [History] Fludrocortisone [Florinef] 0.1 mg PO WETHFRSA 11/17/13 [History] Levothyroxine Sodium [Synthroid] 25 mcg PO SUWE 09/18/14 [History] Levothyroxine Sodium [Synthroid] 50 mcg PO MOTUTHFRSA 11/17/13 [History] Warfarin [Coumadin] 7.5 mg PO SUTUTHSA 11/17/13 [History] Ergocalciferol [Vitamin D2 (DRISDOL)] 50,000 unit PO QMONTH 02/03/14 [History] Clopidogrel [Plavix] 75 mg PO DAILY #90 tab 02/07/14 [Rx] Nitroglycerin Sl Tabs [Nitrostat] 0.4 mg SUBLINGUAL Q5M PRN 09/28/15 [History] Warfarin [Coumadin] 3.75 mg PO MOWEFR 09/28/15 [History] Hydrocortisone [Cortef] 10 mg PO DAILY@1600 12/25/15 [History] Hydrocortisone [Cortef] 20 mg PO QAM 12/25/15 [History] FLUoxetine HCL [PROzac] 10 mg PO DAILY 07/11/16 [History] Metoprolol Tartrate 75 mg PO QAM 07/11/16 [History] Pramipexole [Mirapex] 1 mg PO HS 07/11/16 [History] rOPINIRole HCL [Requip] 0.5 mg PO HS 07/11/16 [History] Acetaminophen Tab [Tylenol Tab] 1,000 mg PO Q6HR PRN 07/15/16 [History] Atorvastatin [Lipitor] 40 mg PO DAILY 09/22/16 [History] Calcium Carbonate [Calcium] 1,200 mg PO DAILY 09/22/16 [History] Docusate [Colace] 100 mg PO DAILY #30 capsule 10/01/16 [Rx] Hydrocodone/Acetaminophen [[place] 5-325] 1 - 2 each PO Q6HR PRN #60 tab 10/01/16 [Rx] Follow up Appointment(s)/Referral(s): Camacho Coello MD [Primary Care Provider] - 10/08/16 11:00 am Roberto Elizabeth PAC [PHYSICIAN RATE CLERK] - 10/15/16 2:30 pm Ambulatory/Diagnostic Orders: Complete Blood Count w/diff [LAB.AMB] Location: Determined By Patient Patient Instructions/Handouts: *Surgery [facility] - Shoulder Arthroscopy Activity/Diet/Wound Care/Special Instructions: Orthopedic Discharge Instructions: 1. Wound care and infection precautions, keep incision dry and covered while showering, no lotions, creams, moisturizers. No soaking, pools, hot tubs. Do not scrub over incision. 2. Utilize arm sling, pendulum exercises daily 3. Ice and elevate when necessary. Do not exceed 20 minutes per hour with ice pack. 4. Utilize compression sleeve until seen at first follow up appointment. 5. Visiting nursing care. 6. Pain meds and anticoagulants per prescription. 7. Pain medication has potential to cause constipation. Increase oral fluid and fiber intake. Contact primary care provider if you have not had a bowel movement within 48 hours after discharge. 8. No anti-inflammatory medication until discussed at first post operative visit, this including Motrin, Aleve, Mobic, Diclofenac. 9. Follow up in office at 2 weeks postop with Darío Elizabeth PA-C 10. Follow up with your primary care doctor 7-10 days after discharge. 11. Contact [facility] with any questions, . Home Care: [facility]: [phone] Discharge Disposition: HOME WITH HOME HEALTH SERVICES
--- NOTE | 2016-10-01 13:10 | PN ---
DATE OF SERVICE: 10/01/16 PRESENTING COMPLAINT: Left shoulder arthroplasty. INTERVAL HISTORY: The patient is status post left shoulder surgery, no nausea or vomiting. Pain is controlled. Tolerating a diet. Keen to go home. Has been out of bed. Review of systems done for constitutional, cardiovascular, GI, pulmonary, musculoskeletal, relevant findings as above. Current medications are reviewed. On examination, temperature 97.3, pulse 78. Respirations 18. Blood pressure 86 /54. Pulse ox 94% on room air. General appearance sitting up in bed, comfortable. Eyes: Pupils equal, conjunctivae normal. Neck JVD not raised. Mass not palpable. Respiratory effort normal. Lungs slightly decreased breath sounds. Cardiovascular: First and second sounds normal. No edema. Abdomen soft, nontender. PSYCH: Alert and oriented times three. Mood and affected normal. EXTREMITIES: Left arm in a sling. Investigations: White count 8.1. Hemoglobin 9.8. ASSESSMENT: 1. Left total shoulder arthroplasty. 2. Paroxysmal atrial fibrillation. 3. Coronary artery disease with history of bypass and stent. 4. Gastroesophageal reflux disease. 5. Primary osteoarthritis of multiple joints bilaterally. 6. Obstructive sleep apnea, uses a CPAP machine. 7. Addisons disease. 8. Restless leg syndrome. 9. Right pupil is fixed. 10. Hypothyroidism. 11. Depression, not otherwise specified. 12. Aortic aneurysm. PLAN: I had ordered yesterday for Coumadin to be started when okay with primary orthopedic team. Otherwise, the patient doing well. Discussed with him. The patient should follow-up with family doctor on discharge . Thank you Dr. Downs. CANDACE
--- NOTE | 2016-10-01 14:07 | P.CRDCN ---
History of Present Illness Consult date: 10/01/16 History of present illness: This is a 76-year-old male who follows with Dr. SIMON Christiansen in the office. He was seen last August 14 of this year for surgical clearance. At that time he was deemed to be moderate to high risk given his advanced age. Recommendations were made for cautious fluid administration and optimal blood pressure control perioperatively. He is being seen today in consultation postoperative day #1 4 left shoulder arthroplasty. he has an extensive history coronary artery disease with bypass grafting. Most recently catheterization in June of this year showed vein graft to the diagonal occluded for which Dr. Christiansen advised medical management. He also has a history of paroxysmal atrial fibrillation for which he takes Coumadin 7.5 mg daily Lopressor 25 mg daily for rate control. He also has a history of corticoadrenal insufficiency, hyper lipidemia , hypertension , paroxysmal supraventricular tachycardia. Review of Systems REVIEW OF SYSTEMS: Patient denies any chest discomfort. No shortness of breath. No diaphoresis. He denies headache, dizziness, blurred vision, double vision. No dyspnea on exertion. Patient denies any stomach discomfort. No nausea, vomiting. No hematochezia. No hematemesis. Denies any black stools or blood in his stools. No syncope. No palpitations. No cough. No recent fever or chills. Denies dysuria or hematuria. No muscle weakness or numbness. complains of left shoulder discomfort. Past Medical History Past Medical History: Atrial Fibrillation, Coronary Artery Disease (CAD), Chest Pain / Angina, Eye Disorder, GERD/Reflux, Hyperlipidemia, Hypertension, Myocardial Infarction (PR), Neurologic Disorder, Osteoarthritis (OA), Sleep Apnea/CPAP/BIPAP, Supraventricular Tachycardia (SVT), Thyroid Disorder Additional Past Medical History / Comment(s): has [place]'s disease, restless leg syndrome,aortic aneurysm-dr. watson, was tx. in past for Parkinson's but not currently, right eye doesn't dilate, daily steroid use Last Myocardial Infarction Date:: 1993 History of Any Multi-Drug Resistant Organisms: None Reported Past Surgical History: Appendectomy, Cardiac Ablation, Coronary Bypass/CABG, Heart Catheterization With Stent, Hernia Repair, Tonsillectomy Additional Past Surgical History / Comment(s): double CABG bypass, septoplasty , 3 cardiac stents, myles cataract surgery, myles eye retina surgery Past Anesthesia/Blood Transfusion Reactions: No Reported Reaction Date of Last Stent Placement:: 2015 Past Psychological History: Depression Smoking Status: Never smoker Past Alcohol Use History: None Reported Past Drug Use History: None Reported - Past Family History Mother Family Medical History: Deep Vein Thrombosis (DVT) Father Family Medical History: Coronary Artery Disease (CAD) Medications and Allergies Home Medications Medication Instructions Recorded Confirmed Type Aspirin 81 mg PO DAILY 11/17/13 09/30/16 History Fludrocortisone [Florinef] 0.1 mg PO WETFR11/17/13 09/30/16 History Levothyroxine Sodium [Synthroid] 25 mcg PO SUWE 11/17/13 09/30/16 History Levothyroxine Sodium [Synthroid] 50 mcg PO MOTUTHFR11/17/13 09/30/16 History Warfarin [Coumadin] 7.5 mg PO SUTUTHSA 11/17/13 09/30/16 History Ergocalciferol [Vitamin D2 50,000 unit PO QMONTH 02/03/14 09/30/16 History (MAGALY)] Nitroglycerin Sl Tabs [Nitrostat] 0.4 mg SUBLINGUAL Q5M PRN 09/28/15 09/30/16 History Warfarin [Coumadin] 3.75 mg PO MOWEFR 09/28/15 09/30/16 History Hydrocortisone [Cortef] 10 mg PO DAILY@1600 12/25/15 09/30/16 History Hydrocortisone [Cortef] 20 mg PO QA 12/25/15 09/30/16 History FLUoxetine HCL [PROzac] 10 mg PO DAILY 07/11/16 09/30/16 History Metoprolol Tartrate 75 mg PO QAM 07/11/16 09/30/16 History Pramipexole [Mirapex] 1 mg PO HS 07/11/16 09/30/16 History rOPINIRole HCL [Requip] 0.5 mg PO HS 07/11/16 09/30/16 History Acetaminophen Tab [Tylenol Tab] 1,000 mg PO Q6HR PRN 07/15/16 09/30/16 History Atorvastatin [Lipitor] 40 mg PO DAILY 09/22/16 09/30/16 History Calcium Carbonate [Calcium] 1,200 mg PO DAILY 09/22/16 09/30/16 History Allergies Allergy/AdvReac Type Severity Reaction Status Date / Time bee pollen [Bee Pollen] Allergy Anaphylaxis Verified 09/30/16 07:00 Sulfa (Sulfonamide Allergy Rash/Hives Verified 09/30/16 07:00 Antibiotics) wasp Allergy Anaphylaxis Uncoded 09/30/16 07:00 Physical Exam Vitals: Vital Signs Temp Pulse Pulse Resp BP Pulse Ox 10/01/16 08:30 97.3 F L 88 18 86/54 94 L 10/01/16 08:00 97 88 18 10/01/16 00:36 97.8 F 99 16 101/65 94 L 09/30/16 21:21 97.5 F L 77 16 100/66 96 09/30/16 20:00 97 97 16 09/30/16 16:00 16 09/30/16 15:00 71 16 102/60 Intake and Output 09/30/16 10/01/16 10/01/16 22:59 06:59 14:59 Intake Total 480 700 350 Output Total 1200 2300 Balance 480 -500 -1950 Intake: Intake, IV Titration 700 Amount Lactated Ringers 1,000 ml 600 As IV .STK-MED ONE Rx#: [id number] ceFAZolin 2 gm In Sodium 100 Chloride 0.9% 100 ml @ 100 mls/hr IVPB ONCE ONE Rx#:[id number] Oral 480 350 Output: Urine 1200 2300 Uretheral (Fournier) 1100 Other: Voiding Method Indwelling Catheter Indwelling Catheter Weight 77.111 kg Patient Weight 10/02/16 06:59 Weight 77.111 kg GENERAL: This is a 76-year-old male in no apparent distress at the time of my examination. HEENT: Head is atraumatic, normocephalic. Pupils are equal, round. Sclerae anicteric. Conjunctivae are clear. Mucous membranes of the mouth are moist. Neck is supple. There is no jugular venous distention. No carotid bruit is heard. LUNGS: Clear to auscultation, no wheezes, rales or rhonchi. No chest wall tenderness is noted on palpation or with deep breathing. HEART: Regular rate and rhythm without murmurs, rubs or gallops. S1 and S2 heard. ABDOMEN: Soft, nontender. Bowel sounds are heard. No organomegaly noted. EXTREMITIES: 2+ peripheral pulses with no evidence of peripheral edema and no calf tenderness noted]. NEUROLOGIC: Patient is awake, alert and oriented x3. Results 10/01/16 07:16 Coagulation 10/01/16 Range/Units 07:16 PT 11.8 (9.0-12.0) sec CBC 10/01/16 Range/Units 07:16 WBC 8.1 (3.8-10.6) k/uL RBC 2.92 L (4.30-5.90) m/uL Hgb 9.8 L (13.0-17.5) gm/dL Hct 30.1 L (39.0-53.0) % Plt Count 248 (150-450) k/uL Current Medications Generic Name Dose Route Start Last Admin Trade Name Freq PRN Reason Stop Dose Admin Hydrocodone Bitart/Acetaminophen 1 each 09/30/16 09:58 10/01/16 04:08 Percival 5-325 PO 1 each Q6HR PRN Administration Pain Scale 1 to 5 Atorvastatin Calcium 40 mg 10/01/16 09:00 10/01/16 08:37 Lipitor PO 40 mg DAILY BABAK Administration Calcium Carbonate/Glycine 1,000 mg 10/01/16 09:00 10/01/16 08:37 Tums PO 1,000 mg DAILY BABAK Administration Clopidogrel Bisulfate 75 mg 10/01/16 09:00 10/01/16 08:38 Plavix PO 75 mg DAILY BABAK Administration Fludrocortisone Acetate 0.1 mg 10/01/16 09:00 10/01/16 08:38 Florinef PO 0.1 mg WeThFrSa@0900 BABAK Administration Fluoxetine HCl 10 mg 10/01/16 09:00 10/01/16 08:38 Prozac PO 10 mg DAILY BABAK Administration Hydrocortisone 10 mg 10/01/16 16:00 Cortef PO DAILY@1600 BABAK Hydrocortisone 20 mg 10/01/16 09:00 10/01/16 08:37 Cortef PO 20 mg QAM BABAK Administration Hydromorphone HCl 0.25 mg 09/30/16 09:58 Dilaudid IVP Q3HR PRN Pain Scale 1 to 3 Hydromorphone HCl 0.5 mg 09/30/16 09:58 10/01/16 06:14 Dilaudid IVP 0.5 mg Q3HR PRN Administration Pain Scale 4 to 6 Lactated Ringer's 1,000 mls @ 20 mls/hr 09/30/16 05:24 10/01/16 08:34 Lactated Ringers IV 20 mls/hr .Q24H BABAK Administration Levothyroxine Sodium 25 mcg 10/01/16 06:30 10/01/16 06:14 Synthroid PO 25 mcg SuWe@0630 BABAK Administration Levothyroxine Sodium 50 mcg 09/30/16 16:15 09/30/16 17:04 Synthroid PO 50 mcg MoTuThFrSa@0630 BABAK Administration Metoprolol Tartrate 75 mg 10/01/16 09:00 10/01/16 08:38 Lopressor PO Not Given QAM [facility] Miscellaneous Information 1 each 10/01/16 09:00 10/01/16 08:44 Coumadin Per Ortho Protocol MISCELLANE 1 each DAILY BABAK Administration Protocol Nitroglycerin 0.4 mg 09/30/16 16:12 Nitrostat SUBLINGUAL Q5M PRN Chest Pain Ondansetron HCl 4 mg 09/30/16 09:58 Zofran IVP DAILY PRN Nausea And Vomiting Pramipexole Dihydrochloride 1 mg 09/30/16 21:00 09/30/16 20:59 Mirapex PO 1 mg HS BABAK Administration Ropinirole HCl 0.5 mg 09/30/16 21:00 09/30/16 20:59 Requip PO 0.5 mg HS BABAK Administration Senna/Docusate Sodium 2 each 09/30/16 09:58 Senokot-S PO HS PRN Constipation Warfarin Sodium 5 mg 10/01/16 18:00 Coumadin PO 10/01/16 18:01 ONCE@1800 ONE Intake and Output 09/30/16 10/01/16 10/01/16 22:59 06:59 14:59 Intake Total 480 700 350 Output Total 1200 2300 Balance 480 -500 -1950 Intake: Intake, IV Titration 700 Amount Lactated Ringers 1,000 ml 600 As IV .STK-MED ONE Rx#: [id number] ceFAZolin 2 gm In Sodium 100 Chloride 0.9% 100 ml @ 100 mls/hr IVPB ONCE ONE Rx#:[id number] Oral 480 350 Output: Urine 1200 2300 Uretheral (Fournier) 1100 Other: Voiding Method Indwelling Catheter Indwelling Catheter Weight 77.111 kg Patient Weight 10/02/16 06:59 Weight 77.111 kg 10/01/16 07:16 - EKG Interpretation EKG: sinus rhythm Assessment and Plan Plan: ASSESSMENT 1. Postoperative day #1 left shoulder arthroplasty. 2. History of paroxysmal atrial fibrillation, on chronic anticoagulation. 3. CAD in the [place] artery, stable. 4. History of coronary artery bypass grafting with reocclusion of one vessel. 5. Subtherapeutic INR PLAN patient appears to be in a normal sinus mechanism. His INR is 1.2 which is subtherapeutic. His Coumadin should be resumed as soon as possible per orthopedic surgery. He can follow-up with Dr. SIMON Christiansen in the office in 5 months.
[2016-10-01 15:35] VITALS: BP 103/71; RESP 16; TEMP 98.6
[2016-10-01] MEDS ORDERED: WARFARIN 7.5 MG TAB PO SCH (18:00)
[2016-10-01] MEDS ORDERED: WARFARIN 5 MG TAB PO ONE (18:00)
== END 2016-10-01 16:50 | disposition home health service (06) | DRG 483 ==
LOC: 2ORMAIN 06:39 → 3SUR 10:20
PROVIDERS: ADMIT Orthopaedic Surgery; ATTEND Orthopaedic Surgery
PROC: 0RRK0JZ Replacement of Left Shoulder Joint with Synthetic Substitute, Open Approach (ICD-10-PCS; principal; 2016-09-30 08:00)
DX: M19.012 Primary osteoarthritis, left shoulder (principal); E27.1 Primary adrenocortical insufficiency; I48.0 Paroxysmal atrial fibrillation; E03.9 Hypothyroidism, unspecified; F32.9 Major depressive disorder, single episode, unspecified; G25.81 Restless legs syndrome; I10 Essential (primary) hypertension; E78.5 Hyperlipidemia, unspecified; G47.33 Obstructive sleep apnea (adult) (pediatric); I25.10 Atherosclerotic heart disease of native coronary artery without angina pectoris; I25.2 Old myocardial infarction; I71.9 Aortic aneurysm of unspecified site, without rupture; K21.9 Gastro-esophageal reflux disease without esophagitis; M15.9 Polyosteoarthritis, unspecified; Z79.01 Long term (current) use of anticoagulants; Z79.02 Long term (current) use of antithrombotics/antiplatelets; Z79.82 Long term (current) use of aspirin; Z79.899 Other long term (current) drug therapy; Z82.49 Family history of ischemic heart disease and other diseases of the circulatory system; Z88.2 Allergy status to sulfonamides; Z95.1 Presence of aortocoronary bypass graft; Z95.5 Presence of coronary angioplasty implant and graft
CPT/HCPCS: 64415; 85025; 85610; 85730; 88305; 88311

== ENCOUNTER → 2017-01-05 | Outpatient (CLI) | payer MEDICARE, OTHER ==
--- NOTE | 2017-01-05 09:05 | MR ---
EXAMINATION TYPE: MR brain wo con DATE OF EXAM: 01/05/2017 COMPARISON: MRI brain October 09, 2009. CT brain August 30, 2009. HISTORY: RODRIGUEZ TECHNIQUE: Multiplanar, multisequence imaging of the brain and brainstem is performed without IV cont rast. FINDINGS: Diffusion weighted images demonstrate no evidence of a recent infarct or other diffusion abnormality. There is no worrisome extra-axial fluid collection. There is ventricular and sulcal prominence consis tent with diffuse cerebral atrophy. There is low-attenuation in the deep and periventricular white ma tter. Midline structures demonstrate normal morphology. The craniocervical junction appears within normal limits. Normal vascular flow voids are present. There is tortuous course to dominant right vertebral artery noted. Cortical chidi in both globes are redemonstrated. Visualized paranasal sinuses are cl ear. IMPRESSION: There is moderate diffuse cerebral atrophy and nonspecific white matter changes most like ly on basis of product of chronic small vessel ischemic change.
== END | disposition home or self-care (01) ==
LOC: RADMRIMAIN 07:47
PROVIDERS: ATTEND Family Medicine
DX: G31.9 Degenerative disease of nervous system, unspecified (principal); R90.82 White matter disease, unspecified
CPT/HCPCS: 70551

== ENCOUNTER → 2017-05-06 | Outpatient (CLI) | payer MEDICARE, OTHER ==
--- NOTE | 2017-05-06 15:20 | US ---
EXAMINATION TYPE: US pelvic limited DATE OF EXAM: 05/06/2017 COMPARISON: NONE CLINICAL HISTORY: R10.2 Inguinal pain. pain in left groin x 2 weeks, patient states he may have injur ied it doing exercises. No palpable or recent groin procedure Normal soft tissue scan at area of patient complaint. IMPRESSION: 1. Negative left inguinal ultrasound
== END | disposition home or self-care (01) ==
LOC: RADUSWWP 14:33
PROVIDERS: ATTEND Family Medicine
DX: R10.2 Pelvic and perineal pain (principal)
CPT/HCPCS: 76857

== ENCOUNTER → 2017-06-01 | Outpatient (CLI) | payer MEDICARE, OTHER | END | disposition home or self-care (01) | LOC: LABPAT 11:36 | PROVIDERS: ATTEND Orthopaedic Surgery | DX: Z01.812 Encounter for preprocedural laboratory examination (principal) | CPT/HCPCS: 87070 ==

== ENCOUNTER 2017-06-23 06:13 | Inpatient (IN) | payer MEDICARE, OTHER ==
[2017-06-15 11:23] VITALS: BMI 29.2
--- NOTE | 2017-06-22 10:32 | HP ---
HISTORY AND PHYSICAL CHIEF COMPLAINT: Right shoulder pain. HISTORY OF PRESENT ILLNESS: Patient is a 77-year-old retired, right-hand dominant male who presents with progressive right shoulder pain secondary to osteoarthrosis despite extensive conservative measures. He is having pain that limits his normal function and activities. PAST MEDICAL HISTORY: Significant for heart disease, hypothyroidism, Adson's disease and arthritis. PAST SURGICAL HISTORY: Significant for left total shoulder arthroplasty, cardiac bypass grafting, hernia repair and appendectomy. CURRENT MEDICATIONS: 1. Aspirin. 2. Atorvastatin. 3. Cortef. 4. Metoprolol. 5. Omeprazole. 6. Synthroid. 7. Warfarin. ALLERGIES: SULFA, FAMILY HISTORY: Significant for heart disease. SOCIAL HISTORY: Negative for current tobacco or alcohol use. 16 POINT REVIEW OF SYSTEMS: Otherwise reviewed and is noncontributory. PHYSICAL EXAMINATION: Patient is approximately 5 foot 6, 170 pounds of mesomorphic habitus. HEENT exam is nonfocal. Neck is supple. Active range of motion right shoulder. Forward elevation 95 degrees, external rotation with arm at side 35 degrees, internal rotation to L4. Passively, I am able to forward elevate him 145 degrees. He is tender about the anterior subacromial space and anterior glenohumeral joint. Moderate subacromial crepitus noted. Davis, Neer and Speed tests are positive. His distal neurovascular exam otherwise appears intact in the right upper extremity. Previous x-rays of the right shoulder obtained in the office, including AP, outlet, and axillary views show severe glenohumeral joint space narrowing with [id number] changes. IMPRESSION: 1. Right severe glenohumeral joint osteoarthrosis. 2. History of coronary artery disease. 3. On anticoagulation. RECOMMENDATIONS: I talked to the patient at length regarding his treatment options. At this point, he remains quite symptomatic because of right shoulder osteoarthrosis despite extensive conservative measures. After thorough discussion, he opts to proceed with surgery. We will plan to proceed with right total shoulder arthroplasty. We will reinstitute his anticoagulation postoperatively. MMODL / IJN: [id number] /
[~2017-06-23 06:13] MED LIST changes: -DEXAMETHASONE SOD PHOSPHATE 10 MG/ML 1 ML VIAL IV ONE; -HYDROmorphone 1 MG/ML 1 ML SYRINGE IVP PRN; +LIDOCAINE 1% 20 ML VIAL (10MG/ML) FOR IV START INTRADERMA PRN; -MIDAZOLAM 2 MG/2 ML VIAL IV PRN; -ONDANSETRON 4 MG/2 ML VIAL IVP ONE; +ONDANSETRON ODT 4 MG TAB PO ONE; -TRANEXAMIC ACID 1,000 MG in SODIUM CHLORIDE 0.9% 100 ML IVPB ONE; +TRANEXAMIC ACID 1,000 MG in SODIUM CHLORIDE 0.9% 50 ML IVPB ONE; -ceFAZolin 2 GM in SODIUM CHLORIDE 0.9% 100 ML IVPB ONE; +ceFAZolin IN SWFI 2 GM/20 ML SYRINGE IVP ONE
[2017-06-23] MEDS ORDERED: ONDANSETRON 4 MG/2 ML VIAL ONE (06:52)
[2017-06-23] MEDS: LACTATED RINGERS 1,000 ML IV SCH (07:02)
[2017-06-23 07:05] LABS: Basophils % (A) 0 %; Eosinophils # (A) 0.2 k/uL (0-0.7); Eosinophils % (A) 2 %; HCT 35.4 % (39.0-53.0); HGB 11.5 gm/dL (13.0-17.5); Lymphocytes # (A) 0.9 k/uL (1.0-4.8); Lymphocytes % (A) 11 %; MCH 31.6 pg (25.0-35.0); MCHC 32.6 g/dL (31.0-37.0); Monocytes # (A) 0.4 k/uL (0-1.0); Monocytes % (A) 4 %; Neutrophils # (A) 6.5 k/uL (1.3-7.7); Neutrophils % (A) 81 %; Platelet Count 289 k/uL (150-450); RBC 3.65 m/uL (4.30-5.90); RDW 13.4 % (11.5-15.5)
[2017-06-23 07:14] LABS: INR 1.2 (<1.2); Partial Thromboplastin Time 25.4 sec (22.0-30.0); Prothrombin Time 11.1 sec (9.0-12.0)
[2017-06-23 07:30] LABS: Glucose,Whole Blood 97 mg/dL (75-99)
[2017-06-23 07:45] LABS: Albumin 4.3 g/dL (3.5-5.0); Calcium 9.5 mg/dL (8.4-10.2); Potassium 4.1 mmol/L (3.5-5.1); Total Bilirubin 0.7 mg/dL (0.2-1.3); Total Protein 7.2 g/dL (6.3-8.2)
[2017-06-23] MEDS ORDERED: ceFAZolin 3,000 MG in SODIUM CHLORIDE 0.9% IRRIGATIO 3,000 ML IRRIGATION ONE (08:58)
[2017-06-23] MEDS ORDERED: LACTATED RINGERS 1,000 ML IV ONE (09:56)
[2017-06-23] MEDS ORDERED: HYDROcodone/APAP 5-325MG 1 EACH TAB PO PRN (10:26)
[2017-06-23] MEDS ORDERED: MORPHINE SULFATE 4 MG/0.8 ML SYRINGE (INJ) IV PRN ×2 (10:26)
[2017-06-23] MEDS ORDERED: ONDANSETRON 4 MG/2 ML VIAL IVP PRN (10:26)
[2017-06-23] MEDS ORDERED: SENNOSIDES-DOCUSATE SODIUM 1 EACH TAB PO PRN (10:26)
--- NOTE | 2017-06-23 10:56 | P.OP ---
Date of Procedure: 06/23/17 Preoperative Diagnosis: Severe right glenohumeral joint osteoarthrosis Postoperative Diagnosis: Same Procedure(s) Performed: Right total shoulder arthroplasty Implants: Depuy global size 12 press-fit humeral stem with a size 12 body, 52 mm +21 humeral head, 52 mm cemented pegged glenoid component Anesthesia: OJ Surgeon: Miguel Angel Downs Medical Operations Supervisor #1: Roberto Elizabeth Estimated Blood Loss (ml): 400 Pathology: other (Humeral head) Condition: stable Disposition: PACU Indications for Procedure: The patient's a 77-year-old male who presents with progressive right shoulder pain secondary to osteoarthrosis despite extensive conservative measures. A discussion of the risks and benefits of operative intervention versus continued conservative measures was made with patient. He opted to proceed with surgery. Operative risks to include infection, neurovascular injury, development of blood clots, possible component loosening, possible component failure and need for subsequent procedures was discussed. Informed consent was obtained. Operative Findings: As below Description of Procedure: The patient was brought to the operating room, and after induction of general anesthesia was placed in a beachchair position. The bony prominences were appropriately padded. The right upper extremity was prepped and draped in normal fashion. The bony outlines the acromion, distal clavicle, and coracoid process were outlined with a skin marker. A deltopectoral incision was made lateral to the coracoid process extending approximately 12 cm. The skin was incised sharply. Subcu tissues were divided bluntly. Electrocautery was used for hemostasis. The deltopectoral interval was identified and the cephalic vein was gently retracted laterally with the deltoid. Subdeltoid adhesions were bluntly dissected. The upper one third of the pectoralis major was released to help facilitate exposure. The clavipectoral fascia was opened and the conjoined tendon was gently retracted medially with a self-retaining retractor. The biceps was identified. The bicipital groove was opened. The biceps was tenotomized and allowed to retract distally. The rotator interval was opened. The lesser tuberosity was then osteotomized utilizing a small sagittal saw. This was then tagged with #2 Ethibond suture. The capsular was released from the humeral neck sharply. Electrocautery was used for hemostasis. The head was then fully exposed and the shoulder dislocated. The humeral canal was then found with a canal finder. There was then reamed by hand up to a size 12. There is good distal fit and chatter. The cutting guide was then placed. I planned on resection just at the rotator cuff insertion. 30 of retroversion was planned. The cutting guide was pinned in place. The humeral neck cut was then made per the bone was removed in one fragment. The inferior osteophytes were carefully removed lush with the flandreau cortical bone. Attention was then paid towards preparing the glenoid. A posterior and anterior retractor placed. The labrum was repaired released from the 12:00 to 6 o'clock position. Inferior and posterior osteophytes were carefully removed with a curved osteotome. A guidepin was then placed in the centercentral portion of the glenoid. a 52 mm reamer was taken down to a bleeding bony surface. The central pedicle was drilled. The guide was then placed. The peripheral peg holes were drilled. The trial component was placed. There was good anterior to posterior and inferior to superior fit. The bony surface was prepared with pulsatile lavage and dried. Cement was then placed in the peripheral peg holes and pressurized by hand. Excess cement was removed. The central peg hole was bone grafted from the humeral head. The glenoid component was inserted and was impacted. This was held in place until the cement had sufficiently hardened. Attention was then paid towards preparing the proximal humerus. The appropriate broach was inserted in 30 of retroversion. The trial component was inserted in the same orientation. This was fully seated. A 52 mm x 21 mm eccentric head was placed. This was rotated appropriately. The shoulder was gently reduced. It was taken through range of motion. I was able to obtain full flexion and extension with good stability with internal and external rotation. The shoulder was gently dislocated. The trial components removed. #2 Ethibond was placed laterally for reattachment of the lesser tuberosity. The humeral stem was inserted again at 30 of retroversion and was fully seated. There is good rotational stability. The eccentric 52 mm x 1 mm humeral head was gently impacted. The shoulder was then gently reduced. Pulsatile lavage was utilized. Again it was taken through range of motion and felt to be stable. Again there was adequate spiritism of soft tissue tension. The rotator interval was closed with #2 Ethibond suture. The lesser tuberosity was re-approximated with #2 Ethibond suture. The deltopectoral interval was closed with interrupted 2-0 Vicryl sutures. Subcu tissues were reapproximated interrupted 2-0 Vicryl sutures. The skin was reapproximated with 3-0 subcuticular Prolene suture. Steri-Strips were applied. A sterile dressing was applied in addition to a sling. Patient was then awoken from general anesthesia and transferred to the recovery room in fair condition. Blood loss was estimated at 400 mL. No complications were incurred. Sponge and needle counts were correct at end of the case.
[2017-06-23] MEDS: MORPHINE SULFATE 4 MG/0.8 ML SYRINGE (INJ) IV PRN ×2 (11:08→11:13)
--- NOTE | 2017-06-23 11:19 | XR ---
EXAMINATION TYPE: XR shoulder limited RT DATE OF EXAM: 06/23/2017 COMPARISON: NONE HISTORY: Post TECHNIQUE: One view are submitted. FINDINGS: The osseous structures are intact. There is postsurgical change in near-anatomic alignment. Soft tis aleah edema and emphysema noted. IMPRESSION: 1. Postsurgical change in near anatomic alignment.
[2017-06-23] MEDS ORDERED: ONDANSETRON 4 MG/2 ML VIAL IVP ONE (12:27)
--- NOTE | 2017-06-23 13:00 | P.ONQ ---
Anesthesiology Proc Note - PNB - Peripheral Nerve Block Performed Right Interscalene Single Time Out Performed: Yes Procedure Start Time: 11:22 Indication: Acute Post-Operative Pain, Analgesia Specifically requested for management of pain by DrMilagro: Miguel Angel Downs Preparation: Sterile Prep Position: Supine Catheter: None Needle Types: Other (see comment) (S[place]vi[place]) Needle Size: 50mm (2") Needle Gauge: 21 Technique: Ultrasound Injectate: 0.5% Ropivacaine (see comment for volume) (30) Blood Aspirated: No Pain Paresthesia on Injection Noted: No Resistance on Injection: Normal Events: Uneventful and Well Tolerated
[2017-06-23] MEDS: ceFAZolin IN SWFI 2 GM/20 ML SYRINGE IVP SCH (15:18)
[2017-06-23] MEDS ORDERED: NITROGLYCERIN SL TABS 0.4 MG TAB SUBLINGUAL PRN (19:58)
[2017-06-23] MEDS ORDERED: WARFARIN 7.5 MG TAB PO SCH (20:00)
[2017-06-23] MEDS: PRAMIPEXOLE 1 MG TAB PO SCH (22:14)
[2017-06-23 23:06] LABS: Appearance,Urine Clear (Clear); Bilirubin,Urine Negative (Negative); Blood,Urine Small (Negative); Color,Urine Yellow; Glucose,Urine (UA) Negative (Negative); Ketones,Urine Negative (Negative); Leukocyte Esterase,Urine Moderate (Negative); Nitrite,Urine Negative (Negative); PH, Urine 6.5 (5.0-8.0); Protein,Urine Trace (Negative); RBC,Urine 14 /hpf (0-5); Specific Gravity,Urine 1.019 (1.001-1.035); WBC,Urine 20 /hpf (0-5)
[2017-06-23] MEDS: ACETAMINOPHEN TAB 325 MG TAB PO PRN (23:22)
--- NOTE | 2017-06-23 23:49 | CONS ---
CONSULTATION DATE OF CONSULTATION: 06/23/2017 REASON FOR CONSULTATION: Medical management requested by Dr. Downs. CONSULTATION: This is a very pleasant 77-year-old patient of Dr. Coello. The patient's chronic stable medical conditions include atrial fibrillation, coronary artery disease, GERD, obstructive sleep apnea, uses a CPAP machine, hypothyroid, Carlisle disease, restless legs syndrome, depression, and chronically dilated right pupil, aortic aneurysm. The patient has undergone a right total shoulder arthroplasty. Some pain is present. No nausea, vomiting. Denies any chest pain. Lying in bed. REVIEW OF SYSTEMS: CONSTITUTIONAL: None. HEENT: Decreased hearing. RESPIRATORY: None. CARDIOVASCULAR: None. GASTROINTESTINAL: Heartburn. GENITOURINARY: None. MUSCULOSKELETAL: Pain in the joints. DERMATOLOGICAL: None. HEMATOLOGIC: None. LYMPHATIC: None. PSYCHIATRY: Depression, controlled. NEUROLOGICAL: None. PAST MEDICAL HISTORY: Of atrial fibrillation, coronary artery disease, GERD, osteoarthritis, obstructive sleep apnea, hypothyroid, Carlisle disease, restless legs syndrome, depression, right fixed pupil. PAST SURGICAL HISTORY: Appendectomy, coronary artery bypass, cardiac cath with stent, septoplasty, bilateral cataract surgery, bilateral retina surgery, left shoulder repair. SOCIAL HISTORY: No smoking. No alcohol. The patient was a preacher. FAMILY HISTORY: DVT. HOME MEDICATIONS: 1. Requip 0.5 mg p.o. q.h.s. 2. Coumadin 3.75 mg on Thursday, Thursday and Thursday and 7.5 mg on Thursday, Thursday, , Thursday. 3. Mirapex 1 mg p.o. q.h.s. 4. Nitrostat 0.4 sublingual q.5h p.r.n. 5. Metoprolol 75 mg p.o. daily. 6. Synthroid 50 mcg on Thursday, Thursday, , Thursday, Thursday and 25 mcg on Thursday and Thursday. 7. Cortef 20 mg a day. 8. [place] p.r.n. 9. Florinef 0.1 mg p.o. Thursday, , Thursday, Thursday. 10.Prozac 10 mg a day. 11.Vitamin D2 50,000 units every 30 days. 12.Plavix 75 mg a day. 13.Calcium 1200 mg p.o. daily. 14.Lipitor 40 mg p.o. daily. 15.Aspirin 81 mg p.o. daily. 16.Tylenol 1000 mg every 6 hours p.r.n. ALLERGIES: To BEE, SULFUR, WASP. EXAMINATION: Temperature 99.9, pulse 114, respirations 20, blood pressure 106/69, pulse ox 94% on room air. GENERAL APPEARANCE: Elderly male, sitting up in bed, comfortable. EYES: Pupils equal. Conjunctivae normal. HEENT: External nose and ears normal. Oral cavity normal. NECK: JVD not raised. Mass not palpable. RESPIRATORY: Effort normal. LUNGS: Fair air entry. CARDIOVASCULAR: First and second sounds normal. No edema. ABDOMEN: Soft, nontender. Liver and spleen not palpable. LYMPHATIC: No lymph node palpable in the neck. PSYCHIATRY: Alert and oriented x3. Mood and affect normal. EXTREMITIES: Right arm in a sling and right shoulder in a dressing. INVESTIGATIONS: White count 8, hemoglobin 11.5. Potassium 4.3 BUN 28, creatinine 1.04. ASSESSMENT: 1. Right total shoulder arthroplasty. 2. Paroxysmal atrial fibrillation. 3. Coronary artery disease with prior history of coronary artery bypass. 4. Gastroesophageal reflux disease. 5. 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 6. Obstructive sleep apnea, uses a CPAP. 7. Carlisle disease. 8. Restless legs syndrome. 9. Right pupil is fixed. 10.Hypothyroidism. 11.Depression, not otherwise specified. 12.Aortic aneurysm. PLAN: Continue current medication and treatment plan. Anticoagulation per Dr. Downs. Pain control is in place. Will resume patient's Coumadin starting tonight and also the aspirin. Other medications to be continued. Care was discussed with the patient. Questions were answered. Thank you, Dr. Downs. MMODL / IJN: [id number] /
[2017-06-24] MEDS: ceFAZolin IN SWFI 2 GM/20 ML SYRINGE IVP SCH (00:30)
[2017-06-24] MEDS: LACTATED RINGERS 1,000 ML IV SCH ×3 (03:18→23:25)
[2017-06-24] MEDS: HYDROcodone/APAP 5-325MG 1 EACH TAB PO PRN ×2 (04:46→09:55)
[2017-06-24] MEDS ORDERED: LEVOTHYROXINE 25 MCG TAB PO SCH (06:30)
[2017-06-24 07:31] LABS: Basophils % (A) 1 %; Eosinophils # (A) 0.1 k/uL (0-0.7); Eosinophils % (A) 1 %; HCT 29.6 % (39.0-53.0); INR 1.2 (<1.2); Lymphocytes # (A) 1.8 k/uL (1.0-4.8); Lymphocytes % (A) 25 %; MCH 31.4 pg (25.0-35.0); MCHC 31.8 g/dL (31.0-37.0); MCV 98.6 fL (80.0-100.0); Mean Platelet Volume 6.5; Monocytes # (A) 0.6 k/uL (0-1.0); Monocytes % (A) 8 %; Neutrophils # (A) 4.6 k/uL (1.3-7.7); Neutrophils % (A) 63 %; Platelet Count 216 k/uL (150-450); Prothrombin Time 11.6 sec (9.0-12.0); RBC 3.01 m/uL (4.30-5.90); RDW 13.5 % (11.5-15.5); WBC 7.3 k/uL (3.8-10.6)
[2017-06-24 07:41] LABS: HGB 9.4 gm/dL (13.0-17.5)
[2017-06-24] MEDS ORDERED: HYDROCORTISONE 20 MG TAB PO SCH (09:00)
[2017-06-24] MEDS: FLUDROCORTISONE 0.1 MG TAB PO SCH (09:38)
[2017-06-24] MEDS: CLOPIDOGREL 75 MG TAB PO SCH (09:38)
[2017-06-24] MEDS: ATORVASTATIN 40 MG TAB PO SCH (09:38)
[2017-06-24] MEDS: ASPIRIN 81 MG PO SCH (09:38)
[2017-06-24] MEDS: FLUoxetine HCL 10 MG CAP PO SCH (09:38)
[2017-06-24] MEDS: METOPROLOL TARTRATE 25 MG TAB PO SCH (12:06)
[2017-06-24] MEDS ORDERED: SODIUM CHLORIDE 0.9% 250 ML IV ONE (12:15)
--- NOTE | 2017-06-24 12:20 | P.PN ---
Subjective Progress Note Date: 06/24/17 Principal diagnosis: Status post right total shoulder arthroplasty Patient is seen today resting in his hospital bed, he appears comfortable. He notes some soreness throughout the shoulder. Urinary catheters been in place. He denies any chest pain, shortness of breath, lightheadedness, fever or chills. Objective - Vital Signs Vital signs: Vital Signs Temp 99.2 F 06/24/17 09:22 Pulse 95 06/24/17 09:22 Resp 16 06/24/17 09:24 BP 80/50 06/24/17 11:40 Pulse Ox 95 06/24/17 09:37 Intake & Output 06/23/17 06/24/17 06/24/17 18:59 06:59 18:59 Intake Total 1741 Output Total 700 850 150 Balance 1041 -850 -150 Weight 77.111 kg Intake: IV 1501 Oral 240 Output: Urine 300 850 150 Uretheral (Fournier) 150 Estimated Blood Loss 400 Other: Voiding Method Indwelling Catheter Indwelling Catheter Indwelling Catheter - Exam Right upper extremity: Incision is clean, dry, and intact. Sensory exam to light touch throughout the extremity is intact, radial pulses 2+ - Labs CBC & Chem 7: 06/24/17 07:09 06/23/17 06:56 Labs: Abnormal Lab Results - Last 24 Hours (Table) 06/23/17 06/24/17 06/24/17 Range/Units 22:42 07:09 07:09 RBC 3.01 L (4.30-5.90) m/uL Hgb 9.4 L D (13.0-17.5) gm/dL Hct 29.6 L (39.0-53.0) % INR 1.2 H (<1.2) Urine Protein Trace H (Negative) Urine Blood Small H (Negative) Ur Leukocyte Esterase Moderate H (Negative) Urine RBC 14 H (0-5) /hpf Urine WBC 20 H (0-5) /hpf Microbiology - Last 24 Hours (Table) 06/23/17 22:42 Urine Culture - Preliminary Urine,Clean Catch Assessment and Plan Plan: Assessment: 1. Postop day 1 status post right total shoulder arthroplasty Plan: 1. Pain control, continue use of oral medication 2. Continue with basic pendular exercises 3. GI and DVT prophylaxis, he will resume his normal home dose of Plavix and continue on Coumadin protocol 4. Medical recommendations 5. Daily dressing changes/ice the shoulder 6. Discharge planning: Patient will likely be discharged home tomorrow Time with Patient: Less than 30
[2017-06-24] MEDS ORDERED: MORPHINE ORAL SOLN 10 MG/5 ML CUP PO PRN ×2 (13:42→13:43)
[2017-06-24] MEDS ORDERED: ALBUTEROL NEBULIZED 2.5 MG/3 ML INHALATION PRN (16:00)
[2017-06-24] MEDS ORDERED: ALBUTEROL INHALATION PRN (16:49)
[2017-06-24] MEDS ORDERED: WARFARIN 7.5 MG TAB PO SCH (18:00)
[2017-06-24] MEDS: HYDROCORTISONE SUCCINATE 100 MG/2 ML VIAL IV SCH ×2 (18:00→23:25)
--- NOTE | 2017-06-24 18:14 | PN ---
PROGRESS NOTE DATE OF SERVICE: 06/24/2017 PRESENTING COMPLAINT: Low blood pressure. INTERVAL HISTORY: Patient is status post right shoulder surgery. I was called this morning; patient's blood pressure was running low. It was checked manually and did come back to again 80 systolic. I did order 200 mL of bolus. Subsequently patient's blood pressure was still in the 80s, so I put him on lactated Ringer's 100 mL/hour. Patient just feels tired, rundown; not much of an appetite. This being shoulder surgery, there was not much bleeding involved in the procedure. REVIEW OF SYSTEMS: Done for constitutional, cardiovascular, GI, pulmonary; relevant findings as above. CURRENT MEDICATIONS: Reviewed. PHYSICAL EXAMINATION: Temperature 98.5, pulse 85, respiration 14, blood pressure 80/50, pulse ox 94% on room air. GENERAL APPEARANCE: Sitting up on a chair, tired-appearing. EYES: Pupils equal. Conjunctivae normal. HEENT: External appearance of nose and ears normal. Oral cavity normal. NECK: JVD not raised. Mass not palpable. RESPIRATORY: Effort normal. LUNGS: Fair air entry. CARDIOVASCULAR: First and second sounds normal. No edema. ABDOMEN: Soft, non-tender. Liver and spleen not palpable. PSYCHIATRY: Alert and oriented x3. Mood and affect normal. EXTREMITIES: Right arm in a sling with right shoulder in a dressing. INVESTIGATIONS: White count 7.3, hemoglobin 9.4. ASSESSMENT: 1. Postoperative hypotension in a patient who does take Cortef; this could be from addisonian flareup with low blood pressure. 2. Right shoulder arthroplasty. 3. Paroxysmal atrial fibrillation. 4. Coronary artery disease with prior history of coronary artery bypass. 5. Gastroesophageal reflux disease. 6. Primary osteoarthritis in multiple joints, bilateral. 7. Obstructive sleep apnea; uses CPAP. 8. Owsley's disease. 9. Restless legs syndrome. 10.Right pupil is fixed. 11.Hypothyroidism. 12.Depression not otherwise specified. 13.Aortic aneurysm. PLAN: At this point we will start the patient on hydrocortisone 100 mg q.8. Keep the patient on IV fluids. Expect pressure to build up. It may be from the stress of surgery. In view of Owsley's disease, steroid requirement has possibly gone up. MMODL / IJN: [id number] /
[2017-06-24] MEDS ORDERED: SODIUM CHLORIDE 0.65% NASAL SPRAY 44 ML BTL NASAL PRN (21:35)
[2017-06-24] MEDS: PRAMIPEXOLE 1 MG TAB PO SCH (21:48)
[2017-06-25] MEDS: ACETAMINOPHEN TAB 325 MG TAB PO PRN (05:36)
[2017-06-25] MEDS ORDERED: LEVOTHYROXINE 50 MCG TAB PO SCH (06:30)
[2017-06-25 07:02] VITALS: RESP 16; TEMP 97.5
[2017-06-25 07:23] LABS: INR 1.3 (<1.2); Prothrombin Time 12.3 sec (9.0-12.0)
[2017-06-25 07:27] LABS: Basophils % (A) 0 %; Eosinophils % (A) 0 %; HCT 30.1 % (39.0-53.0); HGB 9.8 gm/dL (13.0-17.5); Lymphocytes # (A) 0.8 k/uL (1.0-4.8); Lymphocytes % (A) 7 %; MCH 31.7 pg (25.0-35.0); MCHC 32.6 g/dL (31.0-37.0); MCV 97.1 fL (80.0-100.0); Mean Platelet Volume 6.8; Monocytes # (A) 0.4 k/uL (0-1.0); Monocytes % (A) 4 %; Neutrophils # (A) 9.1 k/uL (1.3-7.7); Neutrophils % (A) 88 %; Platelet Count 242 k/uL (150-450); RDW 13.3 % (11.5-15.5); WBC 10.4 k/uL (3.8-10.6)
[2017-06-25] MEDS: HYDROCORTISONE SUCCINATE 100 MG/2 ML VIAL IV SCH (08:28)
[2017-06-25] MEDS: METOPROLOL TARTRATE 25 MG TAB PO SCH (08:29)
[2017-06-25] MEDS: ASPIRIN 81 MG PO SCH (08:30)
[2017-06-25] MEDS: FLUoxetine HCL 10 MG CAP PO SCH (08:30)
[2017-06-25] MEDS: ATORVASTATIN 40 MG TAB PO SCH (08:30)
[2017-06-25] MEDS: CLOPIDOGREL 75 MG TAB PO SCH (08:30)
[2017-06-25] MEDS: FLUDROCORTISONE 0.1 MG TAB PO SCH (08:30)
[2017-06-25] MEDS: LACTATED RINGERS 1,000 ML IV SCH (08:31)
--- NOTE | 2017-06-25 11:00 | P.PN ---
Progress Note - Text Progress Note Date: 06/25/17 S: The patient has no complaints. They deny shortness of breath or chest pain. O: Afebrile, vital signs stable Homans negative right lower extremity Distal neurovascular status intact in the right upper extremity Incision clean, dry , and intact A/P: Postoperative day 2 status post right total shoulder arthroplasty Medical management DVT prophylaxis with Coumadin/Plavix Discharge home Instructions as written
--- NOTE | 2017-06-25 11:02 | P.DS ---
Providers Date of admission: 06/23/17 06:13 Expected date of discharge: 06/25/17 Attending physician: Miguel Angel Downs Consults: 06/23/17 10:28 Consult Physician Routine Consulting Provider: Camacho Coello Consult Reason/Comments: medical management Do you want consulting provider notified?: Yes 06/23/17 13:26 Consult Physician Routine Consulting Provider: Rj Paredes Consult Reason/Comments: medical management Do you want consulting provider notified?: Yes Primary care physician: Camacho Coello [facility] Course: The patient underwent right total shoulder plasty without complication. Postoperatively he did have hypotension which was treated with fluids/steroids. Upon discharge he had good return of bowel and bladder function. He was afebrile with stable vital signs. His incision was clean dry and intact. Procedures: Right total shoulder arthroplasty Patient Condition at Discharge: Good Plan - Discharge Summary Discharge Rx Participant: Yes New Discharge Prescriptions: New HYDROcodone/APAP 5-325MG [[place] 5-325] 1 tab PO Q4HR PRN #40 tab PRN Reason: Pain No Action Warfarin [Coumadin] 7.5 mg PO SUTUTHSA Aspirin 81 mg PO DAILY Fludrocortisone [Florinef] 0.1 mg PO WETHFRSA Levothyroxine Sodium [Synthroid] 25 mcg PO SUWE Levothyroxine Sodium [Synthroid] 50 mcg PO MOTUTHFRSA Ergocalciferol [Vitamin D2 (DRISDOL)] 50,000 unit PO Q30D Clopidogrel [Plavix] 75 mg PO DAILY #90 tab Warfarin [Coumadin] 3.75 mg PO MOWEFR Nitroglycerin Sl Tabs [Nitrostat] 0.4 mg SUBLINGUAL Q5M PRN PRN Reason: Chest Pain Hydrocortisone [Cortef] 20 mg PO QAM FLUoxetine HCL [PROzac] 10 mg PO DAILY Metoprolol Tartrate 75 mg PO QAM Pramipexole [Mirapex] 1 mg PO HS rOPINIRole HCL [Requip] 0.5 mg PO HS Acetaminophen Tab [Tylenol Tab] 1,000 mg PO Q6HR PRN PRN Reason: Pain Atorvastatin [Lipitor] 40 mg PO DAILY Calcium Carbonate [Calcium] 1,200 mg PO DAILY Hydrocodone/Acetaminophen [[place] 5-325] 1 - 2 tab PO Q6HR PRN PRN Reason: Pain Discharge Medication List Aspirin 81 mg PO DAILY 11/17/13 [History] Fludrocortisone [Florinef] 0.1 mg PO WETHFRSA 11/17/13 [History] Levothyroxine Sodium [Synthroid] 25 mcg PO SUWE 11/17/13 [History] Levothyroxine Sodium [Synthroid] 50 mcg PO MOTUTHFRSA 11/17/13 [History] Warfarin [Coumadin] 7.5 mg PO SUTUTHSA 11/17/13 [History] Ergocalciferol [Vitamin D2 (DRISDOL)] 50,000 unit PO Q30D 02/03/14 [History] Clopidogrel [Plavix] 75 mg PO DAILY #90 tab 02/07/14 [Rx] Nitroglycerin Sl Tabs [Nitrostat] 0.4 mg SUBLINGUAL Q5M PRN 09/28/15 [History] Warfarin [Coumadin] 3.75 mg PO MOWEFR 09/28/15 [History] Hydrocortisone [Cortef] 20 mg PO QAM 12/25/15 [History] FLUoxetine HCL [PROzac] 10 mg PO DAILY 07/11/16 [History] Metoprolol Tartrate 75 mg PO QAM 07/11/16 [History] Pramipexole [Mirapex] 1 mg PO HS 07/11/16 [History] rOPINIRole HCL [Requip] 0.5 mg PO HS 07/11/16 [History] Acetaminophen Tab [Tylenol Tab] 1,000 mg PO Q6HR PRN 07/15/16 [History] Atorvastatin [Lipitor] 40 mg PO DAILY 09/22/16 [History] Calcium Carbonate [Calcium] 1,200 mg PO DAILY 09/22/16 [History] Hydrocodone/Acetaminophen [[place] 5-325] 1 - 2 tab PO Q6HR PRN 06/23/17 [History] HYDROcodone/APAP 5-325MG [[place] 5-325] 1 tab PO Q4HR PRN #40 tab 06/25/17 [Rx] Follow up Appointment(s)/Referral(s): Roberto Elizabeth PAC [PHYSICIAN BODY TRIMMER UPHOLSTERER] - 2 Weeks Activity/Diet/Wound Care/Special Instructions: Keep incision clean and dry. Wear sling for comfort. Pendular exercises 3 times daily. Discharge Disposition: HOME SELF-CARE
[2017-06-25 14:17] VITALS: BP 121/71; PULSE 72
--- NOTE | 2017-06-25 22:33 | PN ---
PROGRESS NOTE DATE OF SERVICE: June 25, 2017 PRESENTING COMPLAINT: Shoulder surgery. INTERVAL HISTORY: This is a patient status post shoulder surgery, doing well. Blood pressures come up today. The patient did get IV hydrocortisone. Tolerating a diet. Keen to go home. REVIEW OF SYSTEMS: Done for constitutional, cardiovascular, GI, pulmonary, relevant findings as above. CURRENT MEDICATIONS: Reviewed. EXAMINATION: Temperature 97.5, pulse 96, respirations 16, blood pressure 122/69, pulse ox 95% on room air. General appearance: Sitting up in a chair, cheerful, awake. Eyes pupils equal. Conjunctivae normal. HEENT external appearance of nose and ears normal. Oral cavity normal. Neck JVD not raised. Mass not palpable. Respiratory effort normal. Lungs fair entry. Cardiovascular 1st and 2nd sounds normal. No edema. ABDOMEN: Soft, nontender. Liver and spleen not palpable. Psychiatry: Alert and oriented times three. Mood and affect normal. Extremities: Right arm in a sling with the shoulder in a dressing. INVESTIGATIONS: Hemoglobin 9.8. ASSESSMENT: 1. 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 The patient did respond well to IV hydrocortisone. 2. Right shoulder arthroplasty. 3. Paroxysmal atrial fibrillation. 4. Coronary artery disease with prior history of coronary bypass. 5. Gastroesophageal reflux disease. 6. Primary osteoarthritis multiple joints bilateral. 7. Obstructive sleep apnea uses CPAP. 8. Jarad's disease. 9. Restless legs syndrome. 10.Right pupil is fixed. 11.Hypothyroidism. 12.Depression, not otherwise specified. 13.Aortic aneurysm. PLAN: Patient to take 20 mg of prednisone for 3 days, then to revert to his home dose of Cortef. This was discussed with the nurse. Otherwise, patient should follow with his family doctor. MMODL / IJN: [id number] /
== END 2017-06-25 15:10 | disposition home or self-care (01) | DRG 483 ==
LOC: 2ORMAIN 06:13 → 3SUR 12:41
PROVIDERS: ADMIT Orthopaedic Surgery; ATTEND Orthopaedic Surgery
PROC: 0RRJ0JZ Replacement of Right Shoulder Joint with Synthetic Substitute, Open Approach (ICD-10-PCS; principal; 2017-06-23 08:00)
DX: M19.011 Primary osteoarthritis, right shoulder (principal); E27.1 Primary adrenocortical insufficiency; I95.9 Hypotension, unspecified; I48.0 Paroxysmal atrial fibrillation; I25.10 Atherosclerotic heart disease of native coronary artery without angina pectoris; E03.9 Hypothyroidism, unspecified; G25.81 Restless legs syndrome; F32.9 Major depressive disorder, single episode, unspecified; G47.33 Obstructive sleep apnea (adult) (pediatric); Z79.01 Long term (current) use of anticoagulants; Z82.49 Family history of ischemic heart disease and other diseases of the circulatory system; Z79.899 Other long term (current) drug therapy; Z79.82 Long term (current) use of aspirin; Z88.2 Allergy status to sulfonamides; Z79.890 Hormone replacement therapy; Z87.19 Personal history of other diseases of the digestive system; Z90.49 Acquired absence of other specified parts of digestive tract; Z96.612 Presence of left artificial shoulder joint; Z95.1 Presence of aortocoronary bypass graft; K21.9 Gastro-esophageal reflux disease without esophagitis; Z98.41 Cataract extraction status, right eye; Z98.42 Cataract extraction status, left eye; Z83.2 Family history of diseases of the blood and blood-forming organs and certain disorders involving the immune mechanism; Z79.02 Long term (current) use of antithrombotics/antiplatelets; Z79.891 Long term (current) use of opiate analgesic; Z91.030 Bee allergy status; I71.9 Aortic aneurysm of unspecified site, without rupture
CPT/HCPCS: 64415; 80053; 81001; 85025; 85610; 85730; 87040; 87086; 88300; 93005

== ENCOUNTER → 2017-07-14 | Outpatient (CLI) | payer MEDICARE, OTHER ==
--- NOTE | 2017-07-15 06:53 | ECHOF ---
Referral Reason:I50.9 congestive heart failure MEASUREMENTS -------- HEIGHT: 167.6 cm WEIGHT: 77.1 kg BP: 107/66 RVIDd: 3.8 cm (< 3.3) IVSd: 0.9 cm (0.6 - 1.1) LVIDd: 5.6 cm (3.9 - 5.3) LVPWd: 1.3 cm (0.6 - 1.1) IVSs: 1.9 cm LVIDs: 4.0 cm LVPWs: 2.0 cm LA Diam: 4.1 cm (2.7 - 3.8) LAESV Index (A-L): 28.93 ml/m Ao Diam: 3.8 cm (2.0 - 3.7) AV Cusp: 1.0 cm (1.5 - 2.6) MV EXCURSION: 16.659 mm (> 18.000) MV EF SLOPE: 73 mm/s (70 - 150) EPSS: 1.2 cm MV E [place]: 0.74 m/s MV DecT: 224 ms MV A [place]: 0.70 m/s MV E/A Ratio: 1.06 AV maxP.28 mmHg AV maxP.28 mmHg AV meanP.12 mmHg AR PHT: 1068 ms RAP: 5.00 mmHg RVSP: 18.74 mmHg FINDINGS -------- Sinus rhythm. This was a technically adequate study. The left ventricular size is normal. There is mild concentric left ventricular hypertrophy. Overa ll left ventricular systolic function is mild-moderately impaired with, an EF between 40 - 45 %. The right ventricle is mild to moderately enlarged. LA is midly dilated 29-33ml/m2. The right atrium is normal in size. There is moderate aortic valve sclerosis. There is mild aortic regurgitation. There is mild aorti c stenosis present. Peak/mean gradient across the Aortic Valve is 22.28mmHg / 12.12mmHg. The mitral valve leaflets are mildly thickened. Mild mitral regurgitation is present. Mild tricuspid regurgitation present. Right ventricular systolic pressure is normal at < 35 mmHg. Trace/mild (physiologic) pulmonic regurgitation. The aortic root is dilated measuring 3.8cm. Ascending AO up to 45 mm Normal inferior vena cava with normal inspiratory collapse consistent with estimated right atrial pre ssure of 5 mmHg. There is no pericardial effusion. CONCLUSIONS -------- 1. Sinus rhythm. 2. This was a technically adequate study. 3. The left ventricular size is normal. 4. There is mild concentric left ventricular hypertrophy. 5. Overall left ventricular systolic function is mild-moderately impaired with, an EF between 40 - 45 %. 6. The right ventricle is mild to moderately enlarged. 7. LA is midly dilated 29-33ml/m2. 8. There is moderate aortic valve sclerosis. 9. There is mild aortic regurgitation. 10. There is mild aortic stenosis present. 11. Peak/mean gradient across the Aortic Valve is 22.28mmHg / 12.12mmHg. 12. The mitral valve leaflets are mildly thickened. 13. Mild mitral regurgitation is present. 14. Mild tricuspid regurgitation present. 15. Right ventricular systolic pressure is normal at < 35 mmHg. 16. Trace/mild (physiologic) pulmonic regurgitation. 17. The aortic root is dilated measuring 3.8cm. 18. Ascending AO up to 45 mm 19. Normal inferior vena cava with normal inspiratory collapse consistent with estimated right atrial pressure of 5 mmHg. 20. There is no pericardial effusion. HI RANGER OPERATOR: Dafne Juarez RDCS
== END | disposition home or self-care (01) ==
LOC: RADECHMAIN 15:33
PROVIDERS: ATTEND Family Medicine
DX: I08.3 Combined rheumatic disorders of mitral, aortic and tricuspid valves (principal)
CPT/HCPCS: 93306

== ENCOUNTER → 2017-09-14 | Outpatient (CLI) | payer MEDICARE, OTHER ==
--- NOTE | 2017-09-14 20:44 | CT ---
EXAMINATION TYPE: CT abdomen pelvis wo con DATE OF EXAM: 09/14/2017 COMPARISON: 12/09/2012 HISTORY: 77-year-old male Lower abdominal pain x1 year. CT DLP: 1012 mGycm. Automated exposure control for dose reduction was used. TECHNIQUE: Contiguous axial scanning of the abdomen and pelvis without IV contrast. Coronal and sagit jethro reconstructions performed. FINDINGS: The heart is upper limits of normal in size without pericardial effusion. Median sternotomy wires are present. Partially visualized ascending aortic aneurysm. On the visualized portions, this measures 4 .0 cm. Redemonstrated cyst within the left hepatic lobe, slightly increased in size from 2013 now measuring 1.8 cm. Otherwise, noncontrast appearance of the liver, gallbladder, adrenal glands, right kidney, sp diana with a couple adjacent tiny splenules, and pancreas shows no gross abnormality. 2.4 cm cyst in the anterior upper pole left kidney, slightly larger from 2013. A couple of nonobstruc tive calculi present in the left kidney measuring up to 5 mm. There is narrowed appearance at the origin of the celiac axis with a sharp up within in mild dilatati on just before its trifurcation measured 1.4 cm wide, similar to prior exam. This is of questionable clinical significance. Moderate atherosclerotic calcifications within the abdominal aorta with tortuo us iliac arteries. No dilated small bowel, free fluid, or free air. No mesenteric or retroperitoneal lymphadenopathy. Moderate stool burden without pericolonic inflammatory change. A few prominent left iliac chain lymph nodes are noted measuring up to 9 mm the left common axial rodney ge 53, slightly larger from 2013. Multiple pelvic phleboliths. Prostate gland measures 4.2 cm wide. Prominent distention of the urinary bladder measuring 14.9 cm AP. Bones: There are corticated bone fragments below the ischial tuberosity and right measuring up to 2.7 cm. There is a fluid collection measuring 4.3 cm along the sagittal tuberosity, refer to coronal rodney ge 73 and axial image 86. Mild degenerative changes of the hips. Multiple bone islands periarticular hip. Degenerative changes at the lower lumbar spine and moderate within the lower thoracic spine. IMPRESSION: 1. Partially visualized ascending aortic aneurysm measuring at least 4.0 cm along the visualized por tions. We note that it measured at least 4.5 cm in 2013. 2. A couple nonobstructive left renal calculi measuring up to 5 mm. 3. Narrowed appearance at the celiac axis origin with a sharp upward turn and mild dilatation prior to its trifurcation; overall similar appearance in 2013. This is of questionable clinical significanc e but such changes can be seen in the setting of median arcuate ligament syndrome. Correlate with pat ient's symptoms. 4. Corticated bone fragments below the right ischial tuberosity and adjacent 4.3 cm fluid collection ; findings suggest a chronic extensive tear versus chronic rupture of the hamstrings origin. Clinical ly correlate. 5. Advanced degenerative changes mid to lower lumbar spine.
== END | disposition home or self-care (01) ==
LOC: RADCTMAIN 16:52
PROVIDERS: ATTEND Family Medicine
DX: N20.0 Calculus of kidney (principal)
CPT/HCPCS: 74176

== ENCOUNTER 2017-10-15 00:09 | Observation (INO) | payer MEDICARE, OTHER ==
[2017-10-15] MEDS ORDERED: SODIUM CHLORIDE 0.9% 1,000 ML IV STA (00:30)
[2017-10-15 00:42] LABS: Basophils % (A) 1 %; Eosinophils # (A) 0.5 k/uL (0-0.7); Eosinophils % (A) 10 %; HCT 28.9 % (39.0-53.0); HGB 9.5 gm/dL (13.0-17.5); Lymphocytes # (A) 1.7 k/uL (1.0-4.8); Lymphocytes % (A) 32 %; MCHC 32.8 g/dL (31.0-37.0); MCV 94.5 fL (80.0-100.0); Mean Platelet Volume 6.7; Monocytes # (A) 0.4 k/uL (0-1.0); Monocytes % (A) 8 %; Neutrophils # (A) 2.5 k/uL (1.3-7.7); Neutrophils % (A) 47 %; Platelet Count 219 k/uL (150-450); RBC 3.06 m/uL (4.30-5.90); RDW 14.8 % (11.5-15.5); WBC 5.3 k/uL (3.8-10.6)
[2017-10-15 00:54] LABS: Albumin 2.8 g/dL (3.5-5.0); Calcium 7.3 mg/dL (8.4-10.2); INR 1.9 (<1.2); Magnesium 1.9 mg/dL (1.6-2.3); Partial Thromboplastin Time 29.1 sec (22.0-30.0); Potassium 3.3 mmol/L (3.5-5.1); Prothrombin Time 17.5 sec (9.0-12.0); Total Bilirubin 0.2 mg/dL (0.2-1.3); Total Protein 5.1 g/dL (6.3-8.2)
[2017-10-15 01:05] LABS: Creatine Kinase 200 U/L (55-170)
[2017-10-15 01:18] LABS: Creatine Kinase MB 2.3 ng/mL (0.0-2.4); Troponin I <0.012 ng/mL (0.000-0.034)
--- NOTE | 2017-10-15 01:31 | CT ---
EXAMINATION TYPE: CT angio chest DATE OF EXAM: 10/15/2017 1:17 AM COMPARISON: 12/27/2013 HISTORY: Prior on 2013, chest and upper back pain with diaphoresis and nausea,R/O PE, history of thoracic aortic aneurysm CT DLP: 369.40 mGycm Automated exposure control for dose reduction was used. CONTRAST: CTA scan of the thorax is performed with IV Contrast, patient injected with 80 mL of Isovue 370, pulm onary embolism protocol. There are 3-D post processed images.. FINDINGS: The lungs are clear of consolidation. There is no evidence of a pulmonary mass. There are mild patchy areas of fibrosis in the anterior left upper lobe and at the posterior lung bases. There is no pleur al effusion. Heart is enlarged. There is no pericardial effusion. There is 5 cm aneurysm of the ascen ding aorta. There are no filling defects in the pulmonary arteries. There are a few mediastinal lymph nodes up to 1 cm. There are bronchial lymph nodes up to 1 cm. The bony thorax is intact. IMPRESSION: NO EVIDENCE OF PULMONARY EMBOLISM. 5 CM ANEURYSM OF THE ASCENDING AORTA IS INCREASED FROM 4.5 CM ON T HE OLD CT SCAN. CARDIOMEGALY.
--- NOTE | 2017-10-15 01:32 | ED ---
General Adult HPI - General Chief complaint: Chest Pain Stated complaint: CHEST PAIN Time Seen by Provider: 10/15/17 00:17 Source: patient Mode of arrival: EMS Limitations: no limitations - History of Present Illness Initial comments: Fidencio is a 77-year-old gentleman with an extensive past medical history who presents to the emergency department today via EMS for evaluation of chest pain. Patient reports that this evening he began to have pain in his chest radiating to his back, pain was associated with some diaphoresis which prompted his to call 911 for transport to the ER. EMS reports that upon their arrival the patient was mildly hypotensive, IV access was obtained he was given IV fluid bolus, aspirin and nitro was held due to hypotension. Upon arrival patient reports his pain is slightly better after the IV fluids and aspirin he denies any nausea, vomiting or change in bowel or bladder habits. He denies any shortness of breath. - Related Data Home Medications Medication Instructions Recorded Confirmed Aspirin 81 mg PO DAILY 11/17/13 06/23/17 Fludrocortisone [Florinef] 0.1 mg PO WETHFRSA 11/17/13 06/23/17 Levothyroxine Sodium [Synthroid] 25 mcg PO SUWE 11/17/13 06/23/17 Levothyroxine Sodium [Synthroid] 50 mcg PO MOTUTHFRSA 11/17/13 06/23/17 Warfarin [Coumadin] 7.5 mg PO SUTUTHSA 11/17/13 06/23/17 Ergocalciferol [Vitamin D2 50,000 unit PO Q30D 02/03/14 06/23/17 (DRISDOL)] Nitroglycerin Sl Tabs [Nitrostat] 0.4 mg SUBLINGUAL Q5M PRN 09/28/15 06/23/17 Warfarin [Coumadin] 3.75 mg PO MOWEFR 09/28/15 06/23/17 Hydrocortisone [Cortef] 20 mg PO QAM 12/25/15 06/23/17 FLUoxetine HCL [PROzac] 10 mg PO DAILY 07/11/16 06/23/17 Pramipexole [Mirapex] 1 mg PO HS 07/11/16 06/23/17 rOPINIRole HCL [Requip] 0.5 mg PO HS 07/11/16 06/23/17 Acetaminophen Tab [Tylenol] 1,000 mg PO Q6HR PRN 07/15/16 06/23/17 Atorvastatin [Lipitor] 40 mg PO DAILY 09/22/16 06/23/17 Calcium Carbonate [Calcium] 1,200 mg PO DAILY 09/22/16 06/23/17 Previous Rx's Medication Instructions Recorded Clopidogrel [Plavix] 75 mg PO DAILY #90 tab 02/07/14 HYDROcodone/APAP 5-325MG [[place] 1 tab PO Q4HR PRN #40 tab 06/25/17 5-325] Metoprolol Tartrate 25 mg PO BID #60 tablet 06/25/17 predniSONE 20 mg PO DAILY #3 tab 06/25/17 Allergies Allergy/AdvReac Type Severity Reaction Status Date / Time bee pollen [Bee Pollen] Allergy Anaphylaxis Verified 10/15/17 00:28 Sulfa (Sulfonamide Allergy Rash/Hives Verified 10/15/17 00:28 Antibiotics) wasp Allergy Anaphylaxis Uncoded 10/15/17 00:28 Review of Systems ROS Statement: Those systems with pertinent positive or pertinent negative responses have been documented in the HPI. ROS Other: All systems not noted in ROS Statement are negative. Past Medical History Past Medical History: Atrial Fibrillation, Coronary Artery Disease (CAD), Chest Pain / Angina, Eye Disorder, GERD/Reflux, Hyperlipidemia, Hypertension, Myocardial Infarction (HI), Neurologic Disorder, Osteoarthritis (OA), Sleep Apnea/CPAP/BIPAP, Supraventricular Tachycardia (SVT), Thyroid Disorder Additional Past Medical History / Comment(s): Pickett's disease, restless leg, aortic aneurysm-dr. watson, was tx. in past for Parkinson's ; right eye doesn't dilate Last Myocardial Infarction Date:: 1993 History of Any Multi-Drug Resistant Organisms: None Reported Past Surgical History: Coronary Bypass/CABG, Heart Catheterization With Stent, Hernia Repair Additional Past Surgical History / Comment(s): double bypass,retinal surg., abdominal hernia repair, rt inguinal hernia repair x 2, TRS 06/23/2017 Past Anesthesia/Blood Transfusion Reactions: No Reported Reaction Date of Last Stent Placement:: 2015 Past Psychological History: Depression Smoking Status: Never smoker Past Alcohol Use History: None Reported Past Drug Use History: None Reported - Past Family History Mother Family Medical History: Deep Vein Thrombosis (DVT) Father Family Medical History: Coronary Artery Disease (CAD) General Exam Limitations: no limitations General appearance: alert, in no apparent distress Head exam: Present: atraumatic, normocephalic Eye exam: Present: PERRL ENT exam: Present: normal exam Neck exam: Absent: tenderness Respiratory exam: Present: normal lung sounds bilaterally. Absent: respiratory distress Cardiovascular Exam: Present: regular rate, normal rhythm GI/Abdominal exam: Present: soft. Absent: distended, pulsatile mass Rectal exam: Present: deferred Extremities exam: Present: normal inspection Neurological exam: Present: alert, oriented X3 (Oriented to person, place, time and events leading up to hospitalization. Somewhat of a poor historian regarding his distant past medical history.) Psychiatric exam: Present: normal affect, normal mood Course Vital Signs 10/15/17 10/15/17 10/15/17 00:19 00:55 01:33 Temperature 97.3 F L Pulse Rate 51 L 62 Pulse Rate [ 50 L Stereotype Caster ] Respiratory 17 18 Rate Blood Pressure 87/58 93/50 O2 Sat by Pulse 99 100 Oximetry EKG Findings - EKG Comments: EKG Findings:: EKG obtained at 12:22 AM, rate is 52, rhythm is sinus bradycardia , there is a prolonged CT with a first-degree AV block. CT is 270, QRS is 114, QTC is 489, there are no acute ST elevations or depressions. No evidence of acute ischemia or infarction. When compared to previous the CT and QTc are not significantly changed. Medical Decision Making - Medical Decision Making Patient seen immediately on arrival patient with a significant history of CAD, known ascending aortic aneurysm, presenting with chest pain radiating to his back Labs and imaging were ordered CT reveals mildly enlarging ascending aortic aneurysm 5 cm, previous was estimated to be 4.5 cm on echo in June of this year EKG unchanged from previous Troponin negative The patient was noted to be hypokalemic with some acute kidney injury, by mouth replacement was ordered Further review of the previous medical record indicates that the patient has previously been noted to be hypotensive, he is on chronic steroids We are called and the patient's room, his was reporting that he was having difficulty breathing. When I went to the room the patient was resting comfortably, oxygen saturation was 100% the patient complained that the nasal cannula was making his nose dry. He had no additional complaints of the nasal cannula was removed. Patient care was discussed with Dr. Ibanez of the [facility] physician group. I discussed with him the patient's presentation as well as imaging findings, at this time he accepts the patient for a medical admission for chest pain and a very high risk elderly gentleman and states that he will contact cardiothoracic surgery for consult to evaluate the enlarging ascending aortic aneurysm. - Lab Data Result diagrams: 10/15/17 00:33 10/15/17 00:33 Lab Results 10/15/17 10/15/17 10/15/17 Range/Units 00:33 00:33 00:33 WBC 5.3 (3.8-10.6) k/uL RBC 3.06 L (4.30-5.90) m/uL Hgb 9.5 L (13.0-17.5) gm/dL Hct 28.9 L (39.0-53.0) % MCV 94.5 (80.0-100.0) fL MCH 31.0 (25.0-35.0) pg MCHC 32.8 (31.0-37.0) g/dL RDW 14.8 (11.5-15.5) % Plt Count 219 (150-450) k/uL Neutrophils % 47 % Lymphocytes % 32 % Monocytes % 8 % Eosinophils % 10 % Basophils % 1 % Neutrophils # 2.5 (1.3-7.7) k/uL Lymphocytes # 1.7 (1.0-4.8) k/uL Monocytes # 0.4 (0-1.0) k/uL Eosinophils # 0.5 (0-0.7) k/uL Basophils # 0.0 (0-0.2) k/uL PT (9.0-12.0) sec INR (<1.2) APTT (22.0-30.0) sec Sodium 138 (137-145) mmol/L Potassium 3.3 L (3.5-5.1) mmol/L Chloride 114 H (98-107) mmol/L Carbon Dioxide 18 L (22-30) mmol/L Anion Gap 6 mmol/L BUN 35 H (9-20) mg/dL Creatinine 1.30 H (0.66-1.25) mg/dL Est GFR (CKD-EPI)AfAm 61 (>60 ml/min/1.73 sqM) Est GFR (CKD-EPI)NonAf 53 (>60 ml/min/1.73 sqM) Glucose 80 (74-99) mg/dL Calcium 7.3 L (8.4-10.2) mg/dL Magnesium 1.9 (1.6-2.3) mg/dL Total Bilirubin 0.2 (0.2-1.3) mg/dL AST 33 (17-59) U/L ALT 31 (21-72) U/L Alkaline Phosphatase 68 (38-126) U/L Total Creatine Kinase 200 H (55-170) U/L CK-MB (CK-2) 2.3 (0.0-2.4) ng/mL CK-MB (CK-2) Rel Index 1.2 Troponin I <0.012 (0.000-0.034) ng/mL NT-Pro-B Natriuret Pep pg/mL Total Protein 5.1 L (6.3-8.2) g/dL Albumin 2.8 L (3.5-5.0) g/dL 10/15/17 10/15/17 Range/Units 00:33 00:33 WBC (3.8-10.6) k/uL RBC (4.30-5.90) m/uL Hgb (13.0-17.5) gm/dL Hct (39.0-53.0) % MCV (80.0-100.0) fL MCH (25.0-35.0) pg MCHC (31.0-37.0) g/dL RDW (11.5-15.5) % Plt Count (150-450) k/uL Neutrophils % % Lymphocytes % % Monocytes % % Eosinophils % % Basophils % % Neutrophils # (1.3-7.7) k/uL Lymphocytes # (1.0-4.8) k/uL Monocytes # (0-1.0) k/uL Eosinophils # (0-0.7) k/uL Basophils # (0-0.2) k/uL PT 17.5 H (9.0-12.0) sec INR 1.9 H (<1.2) APTT 29.1 (22.0-30.0) sec Sodium (137-145) mmol/L Potassium (3.5-5.1) mmol/L Chloride (98-107) mmol/L Carbon Dioxide (22-30) mmol/L Anion Gap mmol/L BUN (9-20) mg/dL Creatinine (0.66-1.25) mg/dL Est GFR (CKD-EPI)AfAm (>60 ml/min/1.73 sqM) Est GFR (CKD-EPI)NonAf (>60 ml/min/1.73 sqM) Glucose (74-99) mg/dL Calcium (8.4-10.2) mg/dL Magnesium (1.6-2.3) mg/dL Total Bilirubin (0.2-1.3) mg/dL AST (17-59) U/L ALT (21-72) U/L Alkaline Phosphatase (38-126) U/L Total Creatine Kinase (55-170) U/L CK-MB (CK-2) (0.0-2.4) ng/mL CK-MB (CK-2) Rel Index Troponin I (0.000-0.034) ng/mL NT-Pro-B Natriuret Pep 519 pg/mL Total Protein (6.3-8.2) g/dL Albumin (3.5-5.0) g/dL Disposition Clinical Impression: Chest pain, Hypokalemia, Hypotension Disposition: ADMITTED IP TO THIS HOSP Condition: Fair Referrals: Camacho Coello MD [Primary Care Provider] - 1-2 days Decision Time: 02:12
[2017-10-15] MEDS ORDERED: POTASSIUM BICARBONATE/CIT AC 20 MEQ TABLET.EFF PO ONE (01:34)
[2017-10-15] MEDS ORDERED: NALOXONE 0.4 MG/ML 1 ML VIAL IV PRN (02:12)
[2017-10-15] MEDS ORDERED: HYDROcodone/APAP 5-325MG 1 EACH TAB PO PRN (06:14)
--- NOTE | 2017-10-15 07:02 | P.HPIM ---
History of Present Illness H&P Date: 10/15/17 Chief Complaint: back and chest pain The patient is a 77-year-old gentleman with an extensive past medical history of Atrial Fibrillation on anticoagulation with coumadin , Coronary Artery Disease (CAD), Myocardial Infarction ([place]) Hyperlipidemia, Hypertension. .GERD/ Reflux,, who presents to the emergency department today via EMS for evaluation of chest pain. Patient reports that this evening he began to have pain in his chest radiating to his back, pain was associated with some diaphoresis and shortness of air and lightheadeness which prompted his to call 911 for transport to the ER. EMS reports that upon their arrival the patient was mildly hypotensive, IV access was obtained he was given IV fluid bolus, aspirin and nitro was held due to hypotension. Upon arrival patient reports his pain is slightly better after the IV fluids and aspirin he denies any nausea, vomiting or change in bowel or bladder habits. 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 Echocardiogram done in June 2017 shows ejection fraction of 40-45% with a mildly dilated left atrium. In the ER the patient received a comprehensive workup Including a CTA that showed no evidence of PE, with a 5 cm aneurysm of the ascending aorta which is increased from 4.5 cm. the patient was noted to be hypokalemic with a potassium of 3.3. Serum NT PRO BNP was 519, troponin < 0.012 with EKG showed no acute signs of ischemia. He was given potassium replacement IV fluids aspirin and recommended for admission Review of Systems Those systems with pertinent positive or pertinent negative responses have been documented in the HPI. ROS Other: All systems not noted in ROS Statement are negative. Past Medical History Past Medical History: Atrial Fibrillation, Coronary Artery Disease (CAD), Chest Pain / Angina, Eye Disorder, GERD/Reflux, Hyperlipidemia, Hypertension, Myocardial Infarction ([place]), Neurologic Disorder, Osteoarthritis (OA), Sleep Apnea/CPAP/BIPAP, Supraventricular Tachycardia (SVT), Thyroid Disorder Additional Past Medical History / Comment(s): Jarad's disease, restless leg, aortic aneurysm- monitoring, was tx. in past for Parkinson's ; right eye doesn't react is dialated Last Myocardial Infarction Date:: 1993 History of Any Multi-Drug Resistant Organisms: None Reported Past Surgical History: Coronary Bypass/CABG, Heart Catheterization With Stent, Hernia Repair Additional Past Surgical History / Comment(s): double bypass,retinal surg., abdominal hernia repair, rt inguinal hernia repair x 3, total shoulder replaced 05/2017 Past Anesthesia/Blood Transfusion Reactions: No Reported Reaction Date of Last Stent Placement:: 2015 Past Psychological History: No Psychological Hx Reported Smoking Status: Never smoker Past Alcohol Use History: None Reported Past Drug Use History: None Reported - Past Family History Mother Family Medical History: Deep Vein Thrombosis (DVT) Father Family Medical History: Coronary Artery Disease (CAD) Medications and Allergies Home Medications Medication Instructions Recorded Confirmed Type RX: Levothyroxine Sodium 25 mcg PO SUWE 11/17/13 10/15/17 History [Synthroid] RX: Levothyroxine Sodium 50 mcg PO MOTUTHFRSA 11/17/13 10/15/17 History [Synthroid] RX: Warfarin [Coumadin] 7.5 mg PO DIRECTED 11/17/13 10/15/17 History RX: Ergocalciferol [Vitamin D2 50,000 unit PO Q30D 02/03/14 10/15/17 History (DRISDOL)] RX: Clopidogrel [Plavix] 75 mg PO DAILY #90 tab 02/07/14 10/15/17 Rx RX: Nitroglycerin Sl Tabs 0.4 mg SUBLINGUAL Q5M PRN 09/28/15 10/15/17 History [Nitrostat] RX: FLUoxetine HCL [PROzac] 10 mg PO DAILY 07/11/16 10/15/17 History RX: Acetaminophen Tab [Tylenol] 1,000 mg PO Q6HR PRN 07/15/16 10/15/17 History RX: Calcium Carbonate [Calcium] 1,200 mg PO DAILY 09/22/16 10/15/17 History Aspirin EC [Ecotrin Low Dose] 81 mg PO DAILY 10/15/17 10/15/17 History Atorvastatin [Lipitor] 20 mg PO DAILY 10/15/17 10/15/17 History Docusate [Colace] 100 mg PO DAILY 10/15/17 10/15/17 History Ferrous Sulfate [Feosol] 325 mg PO DAILY 10/15/17 10/15/17 History Fludrocortisone [Florinef] 0.1 mg PO WETHFRSA 10/15/17 10/15/17 History Furosemide [Lasix] 20 mg PO DAILY 10/15/17 10/15/17 History Hydrocortisone [Cortef] 10 mg PO HS 10/15/17 10/15/17 History Hydrocortisone [Cortef] 20 mg PO QAM 10/15/17 10/15/17 History Metoprolol Tartrate [Lopressor] 25 mg PO HS 10/15/17 10/15/17 History Metoprolol Tartrate [Lopressor] 50 mg PO QA 10/15/17 10/15/17 History Pramipexole Di-HCl [Mirapex] 1.5 mg PO HS 10/15/17 10/15/17 History Tamsulosin HCl [Flomax] 0.4 mg PO DAILY 10/15/17 10/15/17 History rOPINIRole HCL [Requip] 2 mg PO QAM 10/15/17 10/15/17 History rOPINIRole HCL [Requip] 4 mg PO 10/15/17 10/15/17 History Allergies Allergy/AdvReac Type Severity Reaction Status Date / Time bee pollen [Bee Pollen] Allergy Anaphylaxis Verified 10/15/17 08:34 Sulfa (Sulfonamide Allergy Rash/Hives Verified 10/15/17 08:34 Antibiotics) wasp Allergy Anaphylaxis Uncoded 10/15/17 05:59 Physical Exam Vitals: Vital Signs Temp Pulse Pulse Resp BP BP Pulse Ox 10/15/17 05:44 97.4 F L 57 L 16 109/68 87 L 10/15/17 05:08 97.1 F L 60 18 99/61 96 10/15/17 04:30 62 18 106/66 99 10/15/17 03:04 63 18 92/60 100 10/15/17 01:33 62 18 93/50 100 10/15/17 00:55 50 L 10/15/17 00:19 97.3 F L 51 L 17 87/58 99 Intake and Output 10/14/17 10/14/17 10/15/17 14:59 22:59 06:59 Other: Weight 74.389 kg Constitutional: No acute distress, conversant, pleasant Eyes: Anicteric sclerae, moist conjunctiva, no lid-lag, PERRLA ENMT: NC/AT,Oropharynx clear, no erythema, exudates Neck:Supple, FROM, no masses, or JVD, No carotid bruits; No thyromegaly Lungs: Clear to auscultation, Clear to percussion, Normal respiratory effort, no accessory muscle use Cardiovascular: Heart regular in rate and rhythm, systolic murmur at base, gallops, or rubs no peripheral edema Abdominal: Soft Nontender, nom distended, no guarding, no rebound or rigidity, Normoactive bowel sounds No hepatomegaly, No splenomegaly, No palpable mass No abdominal wall hernia noted Skin: Normal temperature, tone, texture, turgor, No induration No subcutaneous nodules, No rash, lesions, No ulcers Extremities:No digital cyanosis No clubbing, Pedal pulses intact and symmetrical Radial pulses intact and symmetrical Normal gait and station, No calf tenderness Psychiatric: Alert and oriented to person, place and time, Appropriate affect Intact judgement Neuro: Muscles Strength 5/5 in all 4 extremities, Sensation to light touch grossly present throughout, Cranial nerves II-XII grossly intact. No focal sensory deficits Results CBC & Chem 7: 10/15/17 00:33 10/15/17 00:33 Labs: Abnormal Lab Results - Last 24 Hours (Table) 10/15/17 10/15/17 10/15/17 Range/Units 00:33 00:33 00:33 RBC 3.06 L (4.30-5.90) m/uL Hgb 9.5 L (13.0-17.5) gm/dL Hct 28.9 L (39.0-53.0) % PT (9.0-12.0) sec INR (<1.2) Potassium 3.3 L (3.5-5.1) mmol/L Chloride 114 H (98-107) mmol/L Carbon Dioxide 18 L (22-30) mmol/L BUN 35 H (9-20) mg/dL Creatinine 1.30 H (0.66-1.25) mg/dL Calcium 7.3 L (8.4-10.2) mg/dL Total Creatine Kinase 200 H (55-170) U/L Total Protein 5.1 L (6.3-8.2) g/dL Albumin 2.8 L (3.5-5.0) g/dL 10/15/17 Range/Units 00:33 RBC (4.30-5.90) m/uL Hgb (13.0-17.5) gm/dL Hct (39.0-53.0) % PT 17.5 H (9.0-12.0) sec INR 1.9 H (<1.2) Potassium (3.5-5.1) mmol/L Chloride (98-107) mmol/L Carbon Dioxide (22-30) mmol/L BUN (9-20) mg/dL Creatinine (0.66-1.25) mg/dL Calcium (8.4-10.2) mg/dL Total Creatine Kinase (55-170) U/L Total Protein (6.3-8.2) g/dL Albumin (3.5-5.0) g/dL Thrombosis Risk Factor Assmnt - Choose All That Apply Any of the Below Risk Factors Present?: No Other Risk Factors: Yes Each Risk Factor Represents 3 Points: Age 75 years or older Other congenital or acquired thrombophilia - If yes, enter type in comment: No Thrombosis Risk Factor Assessment Total Risk Factor Score: 3 Thrombosis Risk Factor Assessment Level: Moderate Risk Assessment and Plan Assessment: Chronic medical conditions Obstructive sleep apnea GERD Hyperlipidemia Essential hypertension Chronic adrenal insufficiency history of CABG with reocclusion of 1 vessel (1) Chest pain Current Visit: Yes Status: Acute Code(s): R07.9 - CHEST PAIN, UNSPECIFIED SNOMED Code(s): 75137903 (2) Paroxysmal atrial fibrillation Current Visit: Yes Status: Acute Code(s): I48.0 - PAROXYSMAL ATRIAL FIBRILLATION SNOMED Code(s): 207538465 (3) Hypokalemia Current Visit: Yes Status: Acute Code(s): E87.6 - HYPOKALEMIA SNOMED Code( s): 89556036 (4) DANIELITO (acute kidney injury) Current Visit: Yes Status: Acute Code(s): N17.9 - ACUTE KIDNEY FAILURE, UNSPECIFIED SNOMED Code(s): 86042838 (5) CAD (coronary artery disease) Current Visit: Yes Status: Acute Code(s): I25.10 - ATHSCL HEART DISEASE OF [place] CORONARY ARTERY W/O ANG PCTRS SNOMED Code(s): 86518572 (6) Aortic aneurysm Current Visit: Yes Status: Acute Code(s): I71.9 - AORTIC ANEURYSM OF UNSPECIFIED SITE, WITHOUT RUPTURE SNOMED Code(s): 68181302 (7) Systolic CHF Current Visit: Yes Status: Acute Code(s): I50.20 - UNSPECIFIED SYSTOLIC ( CONGESTIVE) HEART FAILURE SNOMED Code(s): 685732501 Plan: The patient is placed on observation anticipate a less than 2 midnight stay with chest pain with history of CAD, CABG with wanted reoccluded vessel. Initial workup with troponins and EKG are negative for any sedation of ischemia. Continue routine chest pain orders, aspirin, metoprolol and statin therapy. 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 We'll also plan to consult cardiology for further recommendations with regards to his work up and ascending aortic aneursym at 5 cm. Patient with known history of paroxysmal A. fib with controlled ventricular rate continue Coumadin anticoagulation which appears to be therapeutic at this time. We'll continue patient's chronic medications for his chronic adrenal insufficiency. We will continue to follow his clinical course closely.
[2017-10-15 07:52] LABS: Creatine Kinase 206 U/L (55-170)
[2017-10-15 08:05] LABS: Troponin I <0.012 ng/mL (0.000-0.034)
[2017-10-15] MEDS ORDERED: METOPROLOL TARTRATE 25 MG TAB PO SCH ×3 (09:00→21:00)
[2017-10-15] MEDS ORDERED: ATORVASTATIN 40 MG TAB PO SCH (09:00)
[2017-10-15] MEDS ORDERED: ATORVASTATIN 20 MG TAB PO SCH (09:37)
--- NOTE | 2017-10-15 10:05 | XR ---
EXAMINATION TYPE: XR chest 2V DATE OF EXAM: 10/15/2017 COMPARISON: None TECHNIQUE: PA and lateral views submitted. HISTORY: Pain FINDINGS: The lungs are clear and there is no pneumothorax, pleural effusion, or focal pneumonia. Heart is pr ominent in size. Postsurgical change involving the mediastinum and bilateral shoulder. Hyperinflation suggests COPD. Hypertrophic and degenerative change of the spine. Mild prominence of the upper media stinum. IMPRESSION: 1. Upper mediastinal prominence most likely reflects the aortic aneurysm mentioned by recent CT scan. 2. Correlate for COPD.
[2017-10-15] MEDS: FLUoxetine HCL 10 MG CAP PO SCH (10:51)
[2017-10-15] MEDS: LEVOTHYROXINE 50 MCG TAB PO SCH (10:52)
[2017-10-15] MEDS: predniSONE 20 MG TAB PO SCH (10:52)
[2017-10-15] MEDS: FLUDROCORTISONE 0.1 MG TAB PO SCH (10:52)
[2017-10-15] MEDS: CLOPIDOGREL 75 MG TAB PO SCH (10:53)
[2017-10-15] MEDS: HYDROCORTISONE 10 MG TAB PO SCH ×3 (10:53→21:23)
[2017-10-15] MEDS: SODIUM CHLORIDE 0.9% 1,000 ML IV SCH ×2 (11:00→21:19)
--- NOTE | 2017-10-15 11:20 | ECHOF ---
Referral Reason: MEASUREMENTS -------- HEIGHT: 170.2 cm WEIGHT: 74.4 kg BP: 103/67 IVSd: 1.4 cm (0.6 - 1.1) LVIDd: 3.8 cm (3.9 - 5.3) LVPWd: 1.2 cm (0.6 - 1.1) IVSs: 1.3 cm LVIDs: 2.1 cm LVPWs: 1.7 cm LAESV Index (A-L): 37.70 ml/m Ao Diam: 4.3 cm (2.0 - 3.7) AV Cusp: 1.4 cm (1.5 - 2.6) LA Diam: 3.3 cm (2.7 - 3.8) MV EXCURSION: 14.577 mm (> 18.000) MV EF SLOPE: 94 mm/s (70 - 150) EPSS: 1.5 cm MV E Ludwin: 0.70 m/s MV DecT: 326 ms MV A Ludwin: 0.71 m/s MV E/A Ratio: 0.99 AV maxP.02 mmHg AV meanP.77 mmHg RAP: 5.00 mmHg RVSP: 28.51 mmHg FINDINGS -------- Sinus rhythm. This was a technically difficult study with suboptimal views. The left ventricular size is normal. There is mild concentric left ventricular hypertrophy. Overa ll left ventricular systolic function is mild-moderately impaired with, an EF between 40 - 45 %. Th ere is paradoxical/dysynergic septal motion consistent with post-operative status. The right ventricle is normal in size and function. The left atrial size is normal. The right atrium is normal in size. Lumason used Aortic valve is trileaflet and is mildly thickened. There is moderate aortic stenosis present. Pe ak/mean gradient across the Aortic Valve is 23.02mmHg / 11.77mmHg. The mitral valve leaflets are mildly thickened. Mild mitral regurgitation is present. Mild tricuspid regurgitation present. The right ventricular systolic pressure, as measured by Doppl er, is 28.51mmHg. Pulmonic valve appears structurally normal. 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 The pericardium is normal. CONCLUSIONS -------- 1. Sinus rhythm. 2. This was a technically difficult study with suboptimal views. 3. The left ventricular size is normal. 4. There is mild concentric left ventricular hypertrophy. 5. Overall left ventricular systolic function is mild-moderately impaired with, an EF between 40 - 45 %. 6. There is paradoxical/dysynergic septal motion consistent with post-operative status. 7. The right ventricle is normal in size and function. 8. The left atrial size is normal. 9. The right atrium is normal in size. 10. Lumason used 11. Aortic valve is trileaflet and is mildly thickened. 12. There is moderate aortic stenosis present. 13. Peak/mean gradient across the Aortic Valve is 23.02mmHg / 11.77mmHg. 14. The mitral valve leaflets are mildly thickened. 15. Mild mitral regurgitation is present. 16. Mild tricuspid regurgitation present. 17. The right ventricular systolic pressure, as measured by Doppler, is 28.51mmHg. 18. Pulmonic valve appears structurally normal. 19. 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 Normal inferior vena cava with normal inspiratory collapse consistent with estimated right atrial pressure of 5 mmHg. 21. The pericardium is normal. DIETETIC TECHNICIAN: Kathryn Blackwood RDCS
[2017-10-15] MEDS ORDERED: METOPROLOL TARTRATE 50 MG TAB PO SCH (11:25)
--- NOTE | 2017-10-15 11:39 | P.CRDCN ---
History of Present Illness History of present illness: Mr. Morales is a pleasant 77-year-old male past medical history significant for coronary artery disease s/p double vessel bypass in 2004. Most recent cath 06/2016 revealed occluded SVG to diagonal branch, patent RAMIREZ-LAD, occluded LAD and small non-dominant RCA. He also has ischemic cardiomyopathy, paroxysmal atrial fibrillation, chronic systolic heart failure, hypertension, dyslipidemia, addisons disease, abdominal aortic aneurysm, sleep apnea and gastroesophageal reflux disease. He follows with Dr. SIMON Christiansen in the office. We have been asked to see him in consultation for chest pain. He states yesterday during the day he was doing quite a bit of yard work. He cut the grass, built a tree blind 4 ft up in a tree and hauled things in his wheel [place]. After working all day he was sitting on the deck with his when he started experiencing pain in his upper back between his shoulder blades. He took aspirin and the pain went away. He went to bed for the night pain free. He woke up after an hour or so feeling very weak and nauseated. He states he was soaked in sweat and his told him his coloring was very pale and grayish. He walked to the couch and his symptoms intensified and he then started feeling very dizzy. His called 911. When they arrived his blood pressure was low in the 50's systolic. Telemetry tracings from EMS indicate he was going in and out of atrial fibrillation as well as significant ST elevation noted in inferior leads. This seemed to have resolved by the time he arrived to ED. He denies every feeling pain in his chest or pain in his back since that initial symptom earlier in the evening. He denies shortness of breath, vomiting or palpitations. HIS symptoms have completely resolved. EKG on arrival reveals sinus bradycardia with first degree AVB heart rate 52 and left axis deviation. No acute ST elevation or depression. Chest xray negative for an acute cardiopulmonary process. CTA reveals ascending aortic aneurysm 5.0 cm, compared to old CT 2013 this has increased from 4.5 cm. Laboratory data reviewed, hemoglobin 9.5, platelets 219, INR 1.9, sodium 138, potassium 3.3, magnesium 1.9, creatinine 1.3, troponin negative 2, CK-MB 2.3 and 3.0. ProBNP 519. Current cardiac medications include Coumadin, Lopressor 25 mg at bedtime and 50 mg in the a.m., Lasix 20 mg daily, Florinef 0.1 mg Thursday, Plavix 75 mg daily, atorvastatin 20 mg daily and aspirin 81 mg daily. He also takes hydrocortisone, Requip, Flomax, Mirapex, Synthroid, Prozac, ferrous sulfate, Colace and calcium carbonate. Most recent echocardiogram 06/2017 reveals impaired LV systolic function with EF 40-45%, moderate aortic valve sclerosis, mild AR, mild with mean gradient across the valve 12.12 mmHg, mild MR and mild TR. Dilated aortic root 3.8 cm. Review of Systems At the time of my exam: CONSTITUTIONAL: Denies fever. Denies chills. EYES: Denies blurred vision. Denies vision changes. Denies eye pain. EARS, NOSE, MOUTH & THROAT: Denies headache. Denies sore throat. Denies ear pain. CARDIOVASCULAR: Denies chest pain. Denies shortness of breath. Denies orthopnea. Denies PND. Denies palpitations. RESPIRATORY: Denies cough. GASTROINTESTINAL: Denies abdominal pain. Denies diarrhea. Denies constipation. Denies nausea. Denies vomiting. MUSCULOSKELETAL: Denies myalgias. INTEGUMENTARY: Denies pruitis. Denies rash. NEUROLOGIC: Denies numbness. Denies tingling. Denies weakness. PSYCHIATRIC: Denies anxiety. Denies depression. ENDOCRINE: Denies fatigue. Denies weight change. Denies polydipsia. Denies polyurina. GENITOURINARY: Denies burning, hematuria or urgency with micturation. HEMATOLOGIC: Denies history of anemia. Denies bleeding. Past Medical History Past Medical History: Atrial Fibrillation, Coronary Artery Disease (CAD), Chest Pain / Angina, Eye Disorder, GERD/Reflux, Hyperlipidemia, Hypertension, Myocardial Infarction (VT), Neurologic Disorder, Osteoarthritis (OA), Sleep Apnea/CPAP/BIPAP, Supraventricular Tachycardia (SVT), Thyroid Disorder Additional Past Medical History / Comment(s): Strathmere's disease, restless leg, aortic aneurysm-dr. watson, was tx. in past for Parkinson's ; right eye doesn't react is dialated Last Myocardial Infarction Date:: 1993 History of Any Multi-Drug Resistant Organisms: None Reported Past Surgical History: Coronary Bypass/CABG, Heart Catheterization With Stent, Hernia Repair Additional Past Surgical History / Comment(s): double bypass,retinal surg., abdominal hernia repair, rt inguinal hernia repair x 3, total shoulder replaced 05/2017 Past Anesthesia/Blood Transfusion Reactions: No Reported Reaction Date of Last Stent Placement:: 2015 Past Psychological History: No Psychological Hx Reported Smoking Status: Never smoker Past Alcohol Use History: None Reported Past Drug Use History: None Reported - Past Family History Mother Family Medical History: Deep Vein Thrombosis (DVT) Father Family Medical History: Coronary Artery Disease (CAD) Sister(s) Family Medical History: Dementia Medications and Allergies Home Medications Medication Instructions Recorded Confirmed Type Levothyroxine Sodium [Synthroid] 25 mcg PO SUWE 11/17/13 10/15/17 History Levothyroxine Sodium [Synthroid] 50 mcg PO MOTUTHFRSA 11/17/13 10/15/17 History Warfarin [Coumadin] 7.5 mg PO DIRECTED 11/17/13 10/15/17 History Ergocalciferol [Vitamin D2 50,000 unit PO Q30D 02/03/14 10/15/17 History (DRISDOL)] Clopidogrel [Plavix] 75 mg PO DAILY #90 tab 02/07/14 10/15/17 Rx Nitroglycerin Sl Tabs [Nitrostat] 0.4 mg SUBLINGUAL Q5M PRN 09/28/15 10/15/17 History FLUoxetine HCL [PROzac] 10 mg PO DAILY 07/11/16 10/15/17 History Acetaminophen Tab [Tylenol] 1,000 mg PO Q6HR PRN 07/15/16 10/15/17 History Calcium Carbonate [Calcium] 1,200 mg PO DAILY 09/22/16 10/15/17 History Aspirin EC [Ecotrin Low Dose] 81 mg PO DAILY 10/15/17 10/15/17 History Atorvastatin [Lipitor] 20 mg PO DAILY 10/15/17 10/15/17 History Docusate [Colace] 100 mg PO DAILY 10/15/17 10/15/17 History Ferrous Sulfate [Feosol] 325 mg PO DAILY 10/15/17 10/15/17 History Fludrocortisone [Florinef] 0.1 mg PO WETHFRSA 10/15/17 10/15/17 History Furosemide [Lasix] 20 mg PO DAILY 10/15/17 10/15/17 History Hydrocortisone [Cortef] 10 mg PO HS 10/15/17 10/15/17 History Hydrocortisone [Cortef] 20 mg PO QAM 10/15/17 10/15/17 History Metoprolol Tartrate [Lopressor] 25 mg PO HS 10/15/17 10/15/17 History Metoprolol Tartrate [Lopressor] 50 mg PO QA 10/15/17 10/15/17 History Pramipexole Di-HCl [Mirapex] 1.5 mg PO HS 10/15/17 10/15/17 History Tamsulosin HCl [Flomax] 0.4 mg PO DAILY 10/15/17 10/15/17 History rOPINIRole HCL [Requip] 2 mg PO QAM 10/15/17 10/15/17 History rOPINIRole HCL [Requip] 4 mg PO 10/15/17 10/15/17 History Allergies Allergy/AdvReac Type Severity Reaction Status Date / Time bee pollen [Bee Pollen] Allergy Anaphylaxis Verified 10/15/17 08:34 Sulfa (Sulfonamide Allergy Rash/Hives Verified 10/15/17 08:34 Antibiotics) wasp Allergy Anaphylaxis Uncoded 10/15/17 05:59 Physical Exam Vitals: Vital Signs Temp Pulse Pulse Pulse Resp BP BP 10/15/17 07:54 97.5 F L 57 L 16 103/67 10/15/17 06:05 16 10/15/17 05:44 97.4 F L 57 L 16 109/68 10/15/17 05:08 97.1 F L 60 18 99/61 10/15/17 04:30 62 18 106/66 10/15/17 03:04 63 18 92/60 10/15/17 01:33 62 18 93/50 10/15/17 00:55 50 L 10/15/17 00:19 97.3 F L 51 L 17 87/58 Pulse Ox 10/15/17 07:54 99 10/15/17 06:05 10/15/17 05:44 87 L 10/15/17 05:08 96 10/15/17 04:30 99 10/15/17 03:04 100 10/15/17 01:33 100 10/15/17 00:55 10/15/17 00:19 99 Intake and Output 10/14/17 10/15/17 10/15/17 22:59 06:59 14:59 Other: Voiding Method Toilet Weight 74.389 kg Blood pressure 103/67 heart rate 57 afebrile maintaining oxygen saturation on nasal cannula GENERAL: This is a 77-year-old occasion male in no apparent distress at the time of my examination. HEENT: Head is atraumatic, normocephalic. Pupils are equal, round. Sclerae anicteric. Conjunctivae are clear. Mucous membranes of the mouth are moist. Neck is supple. There is no jugular venous distention. No carotid bruit is heard. LUNGS: Clear to auscultation no wheezes, rales or rhonchi. No chest wall tenderness is noted on palpation or with deep breathing. HEART: Regular rate and rhythm with systolic ejection murmur at the base, no rubs or gallops. S1 and S2 heard. ABDOMEN: Soft, nontender. Bowel sounds are heard. No organomegaly noted. EXTREMITIES: No evidence of peripheral edema and no calf tenderness noted. VASCULAR: Radial and dorsalis pedis pulses palpated, no evidence of clubbing. NEUROLOGIC: Patient is awake, alert and oriented x3. Results 10/15/17 00:33 10/15/17 00:33 Cardiac Enzymes 10/15/17 10/15/17 10/15/17 Range/Units 00:33 00:33 07:02 AST 33 (17-59) U/L CK-MB (CK-2) 2.3 3.0 H* (0.0-2.4) ng/mL Troponin I <0.012 <0.012 (0.000-0.034) ng/mL Coagulation 10/15/17 Range/Units 00:33 PT 17.5 H (9.0-12.0) sec APTT 29.1 (22.0-30.0) sec CBC 10/15/17 Range/Units 00:33 WBC 5.3 (3.8-10.6) k/uL RBC 3.06 L (4.30-5.90) m/uL Hgb 9.5 L (13.0-17.5) gm/dL Hct 28.9 L (39.0-53.0) % Plt Count 219 (150-450) k/uL Comprehensive Metabolic Panel 10/15/17 Range/Units 00:33 Sodium 138 (137-145) mmol/L Potassium 3.3 L (3.5-5.1) mmol/L Chloride 114 H (98-107) mmol/L Carbon Dioxide 18 L (22-30) mmol/L BUN 35 H (9-20) mg/dL Creatinine 1.30 H (0.66-1.25) mg/dL Glucose 80 (74-99) mg/dL Calcium 7.3 L (8.4-10.2) mg/dL AST 33 (17-59) U/L ALT 31 (21-72) U/L Alkaline Phosphatase 68 (38-126) U/L Total Protein 5.1 L (6.3-8.2) g/dL Albumin 2.8 L (3.5-5.0) g/dL Current Medications Generic Name Dose Route Start Last Admin Trade Name Freq PRN Reason Stop Dose Admin Hydrocodone Bitart/Acetaminophen 1 each 10/15/17 06:14 Dandridge 5-325 PO Q4HR PRN MODERATE Pain Aspirin 325 mg 10/16/17 09:00 Aspirin PO DAILY [facility] Atorvastatin Calcium 40 mg 10/15/17 09:00 Lipitor PO DAILY [facility] Clopidogrel Bisulfate 75 mg 10/15/17 09:00 Plavix PO DAILY [facility] Fludrocortisone Acetate 0.1 mg 10/15/17 09:00 Florinef PO WETHFRSA [facility] Fluoxetine HCl 10 mg 10/15/17 09:00 Prozac PO DAILY [facility] Hydrocortisone 20 mg 10/15/17 09:00 Cortef PO QAM [facility] Sodium Chloride 1,000 mls @ 100 mls/hr 10/15/17 07:00 Saline 0.9% IV .Q10H [facility] Levothyroxine Sodium 25 mcg 10/18/17 06:30 Synthroid PO [id number]@0630 [facility] Levothyroxine Sodium 50 mcg 10/15/17 06:30 Synthroid PO [id number]@0630 [facility] Metoprolol Tartrate 25 mg 10/15/17 09:00 Lopressor PO BID [facility] Naloxone HCl 0.2 mg 10/15/17 02:12 Narcan IV Q2M PRN Opioid Reversal Prednisone 20 mg 10/15/17 09:00 PO DAILY [facility] Warfarin Sodium 3.75 mg 10/16/17 18:00 Coumadin PO [id number]@1800 [facility] Warfarin Sodium 7.5 mg 10/15/17 18:00 Coumadin PO [id number]@1800 [facility] Intake and Output 10/14/17 10/15/17 10/15/17 22:59 06:59 14:59 Other: Voiding Method Toilet Weight 74.389 kg 10/15/17 00:33 10/15/17 00:33 Assessment and Plan Assessment: ASSESSMENT Chest pain with EKG changes indicative for inferior ST elevation per EMS tracings prior to arrival Ascending aortic aneurysm, 5 cm on CTA History of coronary artery disease s/p double vessel bypass grafting with occluded SVG-diagonal branch Paroxysmal atrial fibrillation on snf anticoagulation with coumadin, currently maintaining sinus mechanism Dyslipidemia Chronic systolic heart failure, most recent EF 40-45%. Currently euvolemic. Ischemic cardiomyopathy. History of Strathmere's disease Chronic kidney disease, GFR 53 PLAN Repeat 2D echocardiogram and doppler study to assess cardiac structure and function. Continue to obtain serial cardiac enzymes to rule out an acute coronary event. Add small dose of imdur 15 mg daily. Continue to monitor closely. Further recommendations to follow based on clinical course. Thank you kindly for this consultation. Nurse Practitioner note has been reviewed, I agree with a documented findings and plan of care. Patient was seen and examined.
[2017-10-15 13:03] LABS: Creatine Kinase 199 U/L (55-170)
[2017-10-15 13:17] LABS: Troponin I <0.012 ng/mL (0.000-0.034)
[2017-10-15 13:23] LABS: Creatine Kinase MB 2.7 ng/mL (0.0-2.4)
[2017-10-15] MEDS: ISOSORBIDE MONONITRATE ER 15 MG TAB PO SCH (14:18)
--- NOTE | 2017-10-15 15:41 | P.PN ---
Progress Note - Text Progress Note Date: 10/15/17 Patient was seen. See H&P for full report. 77-year-old male with PMH of paroxysmal A. fib, systolic CHF, hypertension, hyperlipidemia, Jarad's disease , AAA, sleep apnea presents to the ED for chest pain. He has a history of CABG in 2003. Patient reports previously doing a lot of physical labor prior to his chest pain. Initially in the upper back, relieved with aspirin. After 1 hour nap he experienced dizziness, diaphoresis, nausea. Of note, telemetry tracings from EMS showed the patient was in atrial fibrillation with ST elevation. At the time of this visit, patient was completely chest pain-free. Patient is alert and oriented 3. Patient is walking around the [place] chatting with nurses, comfortably. He is regular rate and rhythm. Normal S1-S2. Systolic murmur noted. Lungs are clear to auscultation bilaterally. There is no lower extremity edema. He is alert and oriented 3. 1. Chest pain: ST elevation seen on EMS strip. High risk with history of CABG and stents. CTA Chest rules out PE shows expanding AAA. CXR consistent with COPD and AAA. Trop < 0.01 x 3 with EKG showing S. james with 1st AV block. ACS ruled out. Discussed with DIRECT CARE SPECIALIST Keysha, cardiology would like to monitor the patient overnight, possible stress test or angiogram. FU Cardiology 2. Hypokalemia: Mild elevation 3.3. Patient is on many medications that affect electrolytes (Florinef, Prednisone, Hydrocortisone, Lasix). Given KHCO3 40 meq PO x 1. FU BMP in the AM 3. Hyperchloremic metabolic acidosis: Non AG. Cl 114 and CO2 18. No GI loss or large amount of NS given. Possible RTA? Given KHCO3 40 meq PO x 1. Continue NS at 100 ml/h. FU BMP in the AM, ULtyes 4. AAA: Seen on CTA. Increase from 4.5 cm to 5 cm now. Due to EKG changes from EMS, episodes of hypotension and acute change in size. FU CT Sx consult 5. HTN: BP 102/64. Start Imdur 15 mg PO QD per Cardiology. Continue Metoprolol 50 mg PO QD and 25 mg PO QHS. Add ACEi when Cr stabilized. Monitor vitals, adjust medications as necessary. 6. A-Fib: INR 1.9 subtherapeutic. AC with Coumadin 7.5 mg PO QSuThuThSa, 3.75 mg PO QMoWeFr. Rate control with Metoprolol 50 mg PO QD and 25 mg PO QHS. Telemetry monitoring. FU Cardiology 7. CAD: s/p CABG in 1994 and underwent KRISTINE in the ostium of L main in 2013. Cath in 2014 shows total occlusion of the vein graft to the diagonal, recommended medical management. Continue ASA 81 mg PO QD, Lipitor 20 mg PO QHS, Plavix 75 mg PO QD. Continue BB and add ACEi when Cr is stabilized. Cardiac diet. FU Cardiology 8. HFrEF: Euvolemic. Echo shows EF 40-45% with mild LVH, dysynergic septal motion. Continue BB. Add Lasix and ACEi when Cr is stabilized. FU Cardiology 9. Jarad's disease: Continue Florinef 0.1 mg PO QWeThFrSa, Hydrocortisone 20 mg PO QAM and 10 mg PO QHS, Prendnisone 20 mg PO QD. Monitor vitals for any hypotensive episodes. 10. DANIELITO: BUN 35 Cr 1.30. Baseline ~ 1.00. Possibly on CKD? Continue NS at 100 ml /h. Will order kidney US if Cr does not improve. FU ULytes 11. Anemia: Hg 9.5 Hct 28.9 MCV 94.5. Stable since 05/2017. Transfuse if Hg < 7.0. FU Iron studies, B12/Folate. 12. Hypothyroidism: Continue Synthroid 50 mcg QMoTuThFrSa and 25 mcg QSuWe. TSH in 06/2016 is within normal limits. FU TSH 13. DVT/GI Prophylaxis: Coumadin. Protonix 40 mg PO QD. As per cardiology, will continue to monitor patient overnight. Will follow cardiology recommendations tomorrow. Patient requesting to go home by tomorrow , states he has a wedding to go to. Will need cardiothoracic evaluation for expanding AAA.
[2017-10-15] MEDS ORDERED: WARFARIN 7.5 MG TAB PO SCH (18:00)
[2017-10-16] MEDS ORDERED: diphenhydrAMINE 25 MG CAP PO STA (04:26)
[2017-10-16] MEDS: LEVOTHYROXINE 50 MCG TAB PO SCH (04:57)
[2017-10-16] MEDS: SODIUM CHLORIDE 0.9% 1,000 ML IV SCH ×2 (04:57→15:10)
[2017-10-16] MEDS ORDERED: PANTOPRAZOLE 40 MG TABLET PO SCH (07:30)
[2017-10-16] MEDS: ISOSORBIDE MONONITRATE ER 15 MG TAB PO SCH (08:28)
[2017-10-16] MEDS: CLOPIDOGREL 75 MG TAB PO SCH (08:28)
[2017-10-16] MEDS: FLUDROCORTISONE 0.1 MG TAB PO SCH (08:28)
[2017-10-16] MEDS: FLUoxetine HCL 10 MG CAP PO SCH (08:28)
[2017-10-16] MEDS: HYDROCORTISONE 10 MG TAB PO SCH (08:29)
[2017-10-16] MEDS: predniSONE 20 MG TAB PO SCH (08:29)
[2017-10-16] MEDS ORDERED: METOPROLOL TARTRATE 50 MG TAB PO SCH (09:00)
[2017-10-16] MEDS ORDERED: ASPIRIN 81 MG PO SCH (09:00)
[2017-10-16] MEDS ORDERED: ASPIRIN 325 MG TAB PO SCH (09:00)
[2017-10-16 11:42] LABS: Iron Saturation 15.56 (15.00-50.00)
[2017-10-16 11:52] LABS: Folate, Serum 7.1 ng/mL
[2017-10-16 12:14] VITALS: BP 103/63; PULSE 53; RESP 16; TEMP 97.9
[2017-10-16 12:31] LABS: HCT 30.2 % (39.0-53.0); HGB 9.7 gm/dL (13.0-17.5); MCH 30.4 pg (25.0-35.0); MCHC 32.1 g/dL (31.0-37.0); MCV 94.6 fL (80.0-100.0); Mean Platelet Volume 7.2; Platelet Count 229 k/uL (150-450); RBC 3.19 m/uL (4.30-5.90); WBC 6.4 k/uL (3.8-10.6)
--- NOTE | 2017-10-16 12:38 | P.GSCN ---
<Yifan Do - Last Filed: 10/16/17 12:37> History of Present Illness Consult date: 10/16/17 Reason for Consult: Ascending aortic aneurysm and episode of hypotension. Requesting physician: Denise Jovel History of present illness: This is 77-year-old gentleman who is by Dr. Coello on an outpatient basis. His past medical history significant for paroxysmal atrial fibrillation, coronary artery disease status post double vessel coronary artery bypass surgery in 1993, history of ischemic cardiomyopathy, chronic systolic heart failure, GERD, hyperlipidemia, hypertension, history of myocardial infarction, history of neurological disorder, obstructive sleep apnea, osteoarthritis, Adson 's disease, hypothyroid, history of a ascending aortic aneurysm followed by Dr. Christiansen and depression. The patient reports on 10/14/2017 he was working in his yard building A deer blind and later in the afternoon he cut his grass. He denies any complaints after doing his yard work, although reports he feels that he did not rehydrated well after doing the work. Around midnight he reports he woke from a deep sleep with complaints of nausea, shortness of breath , slight pain between his shoulder blades and diaphoresis. He denies fever, vomiting, syncope, loss of bowel or bladder function. Subsequently his gave him a nitroglycerin tablet and hydrocortisone tablet per his request. EMS was called and on arrival the patient was found to be hypotensive with a blood pressure of 67/43, and his EKG tracings showed paroxysmal atrial fibrillation and ST elevation to his inferior leads. A 12-lead EKG was completed in the emergency department which showed sinus bradycardia with a first-degree AV block heart rate 52. A computed tomography scan show up his chest was completed and she demonstrated no evidence of a pulmonary mass, mild patchy areas of fibrosis in the anterior left upper lobe and at the posterior lung bases, and a 5 cm aneurysm of the ascending aorta. His initial laboratory results showed a hemoglobin of 9.5, INR 1.9, PT 17.5, potassium 3.3, CO2 18, BUN 35, creatinine 1.30, TSH 2.050 and his troponins were less than 0.012. Due to the change in size of the patient's ascending aortic aneurysm a consult was placed to Dr. Simmons from cardiothoracic surgery for further recommendations. Review of Systems A 14 point review of systems was completed and is negative except as mentioned in HPI. Past Medical History Past Medical History: Atrial Fibrillation, Coronary Artery Disease (CAD), Chest Pain / Angina, Heart Failure, Eye Disorder, GERD/Reflux, Hearing Disorder / Deafness, Hyperlipidemia, Hypertension, Myocardial Infarction ([place]), Neurologic Disorder, Osteoarthritis (OA), Sleep Apnea/CPAP/BIPAP, Supraventricular Tachycardia (SVT), Thyroid Disorder Additional Past Medical History / Comment(s): [place]'s disease, restless leg, aortic aneurysm-Dr. SIMON Christiansen following, was tx. in past for Parkinson's ; right eye doesn't react is dialated. Last Myocardial Infarction Date:: 1993 History of Any Multi-Drug Resistant Organisms: None Reported Past Surgical History: Ablation (History of ablation for atrial fibrillation by Dr. Goode in 2011), Coronary Bypass/CABG, Heart Catheterization With Stent, Hernia Repair, Orthopedic Surgery Additional Past Surgical History / Comment(s): double bypass,retinal surg., abdominal hernia repair, rt inguinal hernia repair x 3, total shoulder replaced 05/2017, retinal surgery to bilateral eyes. Past Anesthesia/Blood Transfusion Reactions: No Reported Reaction Date of Last Stent Placement:: 2015 Past Psychological History: Depression (Currently taking Prozac) Smoking Status: Never smoker Past Alcohol Use History: None Reported Past Drug Use History: None Reported - Past Family History Mother Family Medical History: Diabetes Mellitus, Deep Vein Thrombosis (DVT) Father Family Medical History: AFIB, Coronary Artery Disease (CAD), Myocardial Infarction ([place]) Sister(s) Family Medical History: Dementia Medications and Allergies Home Medications Medication Instructions Recorded Confirmed Type Levothyroxine Sodium [Synthroid] 25 mcg PO SUWE 11/17/13 10/15/17 History Levothyroxine Sodium [Synthroid] 50 mcg PO MOTUTHFRSA 11/17/13 10/15/17 History Warfarin [Coumadin] 7.5 mg PO DIRECTED 11/17/13 10/15/17 History Ergocalciferol [Vitamin D2 50,000 unit PO Q30D 02/03/14 10/15/17 History (MAURIZIOOL)] Clopidogrel [Plavix] 75 mg PO DAILY #90 tab 02/07/14 10/15/17 Rx Nitroglycerin Sl Tabs [Nitrostat] 0.4 mg SUBLINGUAL Q5M PRN 09/28/15 10/15/17 History FLUoxetine HCL [PROzac] 10 mg PO DAILY 07/11/16 10/15/17 History Acetaminophen Tab [Tylenol] 1,000 mg PO Q6HR PRN 07/15/16 10/15/17 History Calcium Carbonate [Calcium] 1,200 mg PO DAILY 09/22/16 10/15/17 History Aspirin EC [Ecotrin Low Dose] 81 mg PO DAILY 10/15/17 10/15/17 History Atorvastatin [Lipitor] 20 mg PO DAILY 10/15/17 10/15/17 History Docusate [Colace] 100 mg PO DAILY 10/15/17 10/15/17 History Ferrous Sulfate [Feosol] 325 mg PO DAILY 10/15/17 10/15/17 History Fludrocortisone [Florinef] 0.1 mg PO WETHFRSA 10/15/17 10/15/17 History Furosemide [Lasix] 20 mg PO DAILY 10/15/17 10/15/17 History Hydrocortisone [Cortef] 10 mg PO HS 10/15/17 10/15/17 History Hydrocortisone [Cortef] 20 mg PO QAM 10/15/17 10/15/17 History Metoprolol Tartrate [Lopressor] 25 mg PO HS 10/15/17 10/15/17 History Metoprolol Tartrate [Lopressor] 50 mg PO QA 10/15/17 10/15/17 History Pramipexole Di-HCl [Mirapex] 1.5 mg PO HS 10/15/17 10/15/17 History Tamsulosin HCl [Flomax] 0.4 mg PO DAILY 10/15/17 10/15/17 History rOPINIRole HCL [Requip] 2 mg PO QAM 10/15/17 10/15/17 History rOPINIRole HCL [Requip] 4 mg PO 10/15/17 10/15/17 History Allergies Allergy/AdvReac Type Severity Reaction Status Date / Time bee pollen [Bee Pollen] Allergy Anaphylaxis Verified 10/15/17 08:34 Sulfa (Sulfonamide Allergy Rash/Hives Verified 10/15/17 08:34 Antibiotics) wasp Allergy Anaphylaxis Uncoded 10/15/17 05:59 Surgical - Exam Vital Signs Temp Pulse Resp BP Pulse Ox 97.3 F L 51 L 17 87/58 99 10/15/17 00:19 10/15/17 00:19 10/15/17 00:19 10/15/17 00:19 10/15/17 00:19 - General well developed, well nourished, no distress, no pain - Eyes Noa to his left eye, right pupil chronically dilated. normal ocular movement - ENT normal pinna, normal nares, normal mucosa, no congestion, decreased hearing - Neck No lymphadenopathy, neck is supple. no masses, no bruits, trachea midline, no venous distension - Respiratory Lung sounds are essentially clear throughout, no wheezes, crackles or rhonchi. Respirations are symmetrical and nonlabored. - Cardiovascular Regular rhythm and rate. S1 and S2 present, positive systolic murmur 3/6. No edema present. - Abdomen Abdomen is soft, nontender and nondistended. Active bowel sounds all 4 quadrants. No guarding or rigidity. No organomegaly. - Genitourinary Deferred - Rectum Deferred - Integumentary Skin is warm and dry. No clubbing or cyanosis present. no rash, no growths, no abnormal pigmentation - Neurologic Alert and oriented 3. normal coordination, normal sensation - Musculoskeletal normal gait, normal posture - Psychiatric oriented to time, oriented to person, oriented to place, speech is normal, memory intact Results - Labs 10/15/17 00:33 10/15/17 00:33 Abnormal Lab Results - Last 24 Hours (Table) 10/15/17 Range/Units 12:29 Total Creatine Kinase 199 H (55-170) U/L CK-MB (CK-2) 2.7 H* (0.0-2.4) ng/mL Thyroid panel 10/15/17 Range/Units 07:02 TSH 2.050 (0.465-4.680) mIU/L Pituitary panel 10/15/17 Range/Units 07:02 TSH 2.050 (0.465-4.680) mIU/L - Imaging Chest x-ray: report reviewed, image reviewed CT scan - chest: report reviewed, image reviewed EKG: image reviewed Additional studies: 2-D echocardiogram results reviewed. Assessment and Plan (1) Hyperlipidemia Current Visit: Yes Status: Acute Code(s): E78.5 - HYPERLIPIDEMIA, UNSPECIFIED SNOMED Code(s): 00844399 (2) Hypothyroid Current Visit: Yes Status: Acute Code(s): E03.9 - HYPOTHYROIDISM, UNSPECIFIED SNOMED Code(s): 13746721 (3) Addisons disease Current Visit: Yes Status: Acute Code(s): E27.1 - PRIMARY ADRENOCORTICAL INSUFFICIENCY SNOMED Code(s): 700397530 (4) Chronic kidney disease Current Visit: Yes Status: Acute Code(s): N18.9 - CHRONIC KIDNEY DISEASE, UNSPECIFIED SNOMED Code(s): 575160804 (5) Aortic aneurysm Current Visit: Yes Status: Acute Code(s): I71.9 - AORTIC ANEURYSM OF UNSPECIFIED SITE, WITHOUT RUPTURE SNOMED Code(s): 72524788 (6) CAD (coronary artery disease) Current Visit: Yes Status: Acute Code(s): I25.10 - ATHSCL HEART DISEASE OF [place] CORONARY ARTERY W/O ANG PCTRS SNOMED Code(s): 22784372 (7) Hypokalemia Current Visit: Yes Status: Acute Code(s): E87.6 - HYPOKALEMIA SNOMED Code( s): 86729621 (8) Hypotension Current Visit: Yes Status: Acute Code(s): I95.9 - HYPOTENSION, UNSPECIFIED SNOMED Code(s): 76801172 (9) Paroxysmal atrial fibrillation Current Visit: Yes Status: Acute Code(s): I48.0 - PAROXYSMAL ATRIAL FIBRILLATION SNOMED Code(s): 199100596 (10) Systolic CHF Current Visit: Yes Status: Acute Code(s): I50.20 - UNSPECIFIED SYSTOLIC ( CONGESTIVE) HEART FAILURE SNOMED Code(s): 320710906 (11) Osteoarthritis Current Visit: No Status: Acute Code(s): M19.90 - UNSPECIFIED OSTEOARTHRITIS , UNSPECIFIED SITE SNOMED Code(s): 551464015 Plan: Patient was seen and examined. Chart diagnostics were reviewed. Patient has been seen and examined by Dr. Simmons. No surgical intervention planned at this time. Continue to follow on an outpatient basis. Continue to optimize medical management, Lopressor, Plavix, Coumadin, Lipitor and low-dose aspirin. Patient may be discharged home per cardiothoracic surgery standpoint when okay with primary care. Continue strict blood pressure control. Thank you Dr. Jovel for this consult and we'll look forward to working with you in the care of your patient. Time with Patient: Greater than 30 <Natalya Simmons - Last Filed: 10/16/17 12:45> Surgical - Exam Vital Signs Temp Pulse Resp BP Pulse Ox 97.3 F L 51 L 17 87/58 99 10/15/17 00:19 10/15/17 00:19 10/15/17 00:19 10/15/17 00:19 10/15/17 00:19 Results - Labs 10/16/17 12:07 10/15/17 00:33 Abnormal Lab Results - Last 24 Hours (Table) 10/15/17 10/16/17 Range/Units 12:29 12:07 RBC 3.19 L (4.30-5.90) m/uL Hgb 9.7 L (13.0-17.5) gm/dL Hct 30.2 L (39.0-53.0) % Total Creatine Kinase 199 H (55-170) U/L CK-MB (CK-2) 2.7 H* (0.0-2.4) ng/mL Thyroid panel 10/15/17 Range/Units 07:02 TSH 2.050 (0.465-4.680) mIU/L Pituitary panel 10/15/17 Range/Units 07:02 TSH 2.050 (0.465-4.680) mIU/L Assessment and Plan Plan: Yearly CTA recommended. Ischemic w/u per cardiology.
[2017-10-16 12:49] LABS: Calcium 8.7 mg/dL (8.4-10.2); Potassium 4.4 mmol/L (3.5-5.1)
--- NOTE | 2017-10-16 13:45 | P.PN ---
Subjective Mr. Morales seen and examined. He has been up ambulating in the hallways comfortably. He denies any further symptoms of chest pain, shortness of breath, nausea, dizziness or diaphoresis. Telemetry tracings indicate sinus mechanism with no acute arrhythmia. Echocardiogram performed yesterday reveals moderately impaired left ventricular systolic function with ejection fraction 40 -45%, septal wall motion abnormality, moderate aortic stenosis with a mean gradient across the valve of 11.77 mmHg, mild MR and mild TR. Cardiac enzymes negative 3, TSH 2.05. Blood pressure has been marginally low 80s systolic last evening this morning 94/55 heart rate 60 afebrile maintaining oxygen saturation on room. Objective - Vital Signs Vital signs: Vital Signs Temp 98.1 F 10/16/17 07:15 Pulse 60 10/16/17 07:15 Resp 18 10/16/17 07:15 BP 94/55 10/16/17 07:15 Pulse Ox 97 10/16/17 07:15 Intake & Output 10/15/17 10/16/17 10/16/17 18:59 06:59 18:59 Intake Total 200 240 Balance 200 240 Intake: Oral 240 Other 200 Other: Voiding Method Toilet Toilet Toilet # Voids 1 2 - Exam GENERAL: Well-appearing, well-nourished and in no acute distress. NECK: Supple without JVD or thyromegaly. LUNGS: Breath sounds clear to auscultation bilaterally. Respiration equal and unlabored. No wheezes, rales or rhonchi. HEART: Regular rate and rhythm with systolic ejection murmur at the base, rubs or gallops. S1 and S2 heard. EXTREMITIES: Normal range of motion, no edema. No clubbing or cyanosis. Peripheral pulses intact. - Labs CBC & Chem 7: 10/16/17 12:07 10/16/17 12:07 Labs: Abnormal Lab Results - Last 24 Hours (Table) 10/15/17 Range/Units 12:29 Total Creatine Kinase 199 H (55-170) U/L CK-MB (CK-2) 2.7 H* (0.0-2.4) ng/mL Assessment and Plan Assessment: ASSESSMENT Chest pain with EKG changes indicative for inferior ST elevation per EMS tracings prior to arrival Ascending aortic aneurysm, 5 cm on CTA History of coronary artery disease s/p double vessel bypass grafting with occluded SVG-diagonal branch Paroxysmal atrial fibrillation on mcfp anticoagulation with coumadin, currently maintaining sinus mechanism Dyslipidemia Chronic systolic heart failure, most recent EF 40-45%. Currently euvolemic. Ischemic cardiomyopathy. History of Jarad's disease Chronic kidney disease, GFR 53 PLAN Decrease Lopressor 12.5 mg twice a day. Continue with low-dose Imdur. Ongoing evaluation with cardio-thoracic surgery for aortic aneurysm. Follow up with Dr. Christiansen upon discharge. Nurse Practitioner note has been reviewed, I agree with a documented findings and plan of care. Patient was seen and examined.
--- NOTE | 2017-10-16 14:27 | P.PN ---
Subjective Progress Note Date: 10/16/17 Principal diagnosis: Chest pain Patient examined. No acute events. Patient denies chest pain, shortness of breath, palpitations. Requesting to go home. Objective - Vital Signs Vital signs: Vital Signs Temp 98.1 F 10/16/17 07:15 Pulse 60 10/16/17 07:15 Resp 18 10/16/17 07:15 BP 94/55 10/16/17 07:15 Pulse Ox 97 10/16/17 07:15 Intake & Output 10/15/17 10/16/17 10/16/17 18:59 06:59 18:59 Intake Total 200 240 Balance 200 240 Intake: Oral 240 Other 200 Other: Voiding Method Toilet Toilet Toilet # Voids 1 2 - Exam General: non toxic, no distress, appears at stated age Derm: warm, dry Head: atraumatic, normocephalic, symmetric Eyes: EOMI, no lid lag, anicteric sclera Mouth: no lip lesion, mucus membranes moist Cardiovascular: S1S2 reg, + murmur, positive posterior tibial pulse bilateral Lungs: CTA bilateral, no rhonchi, no rales , no accessory muscle use Abdominal: soft, nontender to palpation, no guarding, no appreciable organomegaly Ext: no gross muscle atrophy, no edema, no contractures Neuro: CN II-XI grossly intact, no focal neuro deficits Psych: Alert, oriented, appropriate affect - Labs CBC & Chem 7: 10/16/17 12:07 10/16/17 12:07 Labs: Abnormal Lab Results - Last 24 Hours (Table) 10/15/17 Range/Units 12:29 Total Creatine Kinase 199 H (55-170) U/L CK-MB (CK-2) 2.7 H* (0.0-2.4) ng/mL Assessment and Plan Assessment: Assessment and Plan 1. Chest pain: Resolved. ST elevation seen on EMS strip. High risk with history of CABG and stents. CTA Chest rules out PE shows expanding AAA. CXR consistent with COPD and AAA. Trop < 0.01 x 3 with EKG showing S. james with 1st AV block. ACS ruled out. 2. AAA: Seen on CTA. Increase from 4.5 cm to 5 cm now. Due to EKG changes from EMS, episodes of hypotension and acute change in size. Cardiothoracic surgery consulted, recommends outpatient follow-up. 3. HTN: BP 103/63. Continue Imdur 15 mg PO QD per Cardiology. Metoprolol cut down to 12.5 mg PO BID. Monitor vitals, adjust medications as necessary. 4. A-Fib: INR 1.9 subtherapeutic. AC with Coumadin 7.5 mg PO QSuThuThSa, 3.75 mg PO QMoWeFr. Rate control with Metoprolol 15 mg PO BID. Telemetry monitoring. 5. CAD: s/p CABG in 1994 and underwent KRISTINE in the ostium of L [place] in 2013. Cath in 2014 shows total occlusion of the vein graft to the diagonal, recommended medical management. Continue ASA 81 mg PO QD, Lipitor 20 mg PO QHS, Plavix 75 mg PO QD. Continue BB. Cardiac diet. 6. HFrEF: Euvolemic. Echo shows EF 40-45% with mild LVH, dysynergic septal motion. Continue BB. Add ACEi on discharge. 7. Jarad's disease: Continue Florinef 0.1 mg PO QWeThFrSa, Hydrocortisone 20 mg PO QAM and 10 mg PO QHS, Prendnisone 20 mg PO QD. Monitor vitals for any hypotensive episodes. 8. Anemia: Hg 9.7 Hct 30.2 MCV 94.6. Stable since 05/2017. Transfuse if Hg < 7.0. Iron studies indicate iron deficiency anemia. Follow-up PCP for further workup. 9. DANIELITO: Resolved. Cr 0.95. Baseline ~ 1.00. Continue to monitor. 10. Hypokalemia: Resolved. Patient is on many medications that affect electrolytes (Florinef, Prednisone, Hydrocortisone, Lasix). Given KHCO3 40 meq PO x 1. 11. Hyperchloremic metabolic acidosis: Resolved. Non AG. Cl 114 and CO2 18. No GI loss or large amount of NS given. Possible RTA? Given KHCO3 40 meq PO x 1. 12. Hypothyroidism: Continue Synthroid 50 mcg QMoTuThFrSa and 25 mcg QSuWe. TSH is within normal limits. 13. DVT/GI Prophylaxis: Coumadin. Protonix 40 mg PO QD. Patient is chest pain-free. Cleared by cardiology for discharge. Advised to follow-up with PCP within 1-2 days of discharge. Patient advised to follow-up with cardiology with the appointment given to him. Patient advised to follow- up with cardiothoracic surgery with the appointment given to him.
[2017-10-16] MEDS ORDERED: WARFARIN 7.5 MG TAB PO SCH (18:00)
[2017-10-16] MEDS ORDERED: METOPROLOL TARTRATE 12.5 MG TAB PO SCH (21:00)
[2017-10-16] MEDS ORDERED: METOPROLOL TARTRATE 25 MG TAB PO SCH (21:00)
[2017-10-16] MEDS ORDERED: rOPINIRole HCL 4 MG TABLET PO SCH (21:00)
[2017-10-18] MEDS ORDERED: LEVOTHYROXINE 25 MCG TAB PO SCH (06:30)
== END 2017-10-16 15:45 | disposition home or self-care (01) ==
LOC: EC 00:09 → 3OBS 02:13
PROVIDERS: ADMIT Family Medicine; ATTEND Family Medicine
DX: R07.9 Chest pain, unspecified (principal); I71.2 Thoracic aortic aneurysm, without rupture; N17.9 Acute kidney failure, unspecified; E87.2 Acidosis; I13.0 Hypertensive heart and chronic kidney disease with heart failure and stage 1 through stage 4 chronic kidney disease, or unspecified chronic kidney disease; I50.22 Chronic systolic (congestive) heart failure; N18.9 Chronic kidney disease, unspecified; I25.810 Atherosclerosis of coronary artery bypass graft(s) without angina pectoris; I25.82 Chronic total occlusion of coronary artery; E87.6 Hypokalemia; I25.5 Ischemic cardiomyopathy; I95.9 Hypotension, unspecified; I35.0 Nonrheumatic aortic (valve) stenosis; I48.0 Paroxysmal atrial fibrillation; G47.33 Obstructive sleep apnea (adult) (pediatric); E78.5 Hyperlipidemia, unspecified; I47.1 Supraventricular tachycardia; H57.9 Unspecified disorder of eye and adnexa; M19.90 Unspecified osteoarthritis, unspecified site; K21.9 Gastro-esophageal reflux disease without esophagitis; G25.81 Restless legs syndrome; E27.1 Primary adrenocortical insufficiency; G20 Parkinson's disease; F32.9 Major depressive disorder, single episode, unspecified; E03.9 Hypothyroidism, unspecified; D50.9 Iron deficiency anemia, unspecified; Z99.89 Dependence on other enabling machines and devices; I25.2 Old myocardial infarction; Z79.01 Long term (current) use of anticoagulants; Z79.82 Long term (current) use of aspirin; Z79.890 Hormone replacement therapy; Z79.52 Long term (current) use of systemic steroids; Z79.899 Other long term (current) drug therapy; Z79.02 Long term (current) use of antithrombotics/antiplatelets; Z88.2 Allergy status to sulfonamides; Z91.030 Bee allergy status; Z91.038 Other insect allergy status; Z86.69 Personal history of other diseases of the nervous system and sense organs; Z95.1 Presence of aortocoronary bypass graft; Z95.5 Presence of coronary angioplasty implant and graft; Z96.619 Presence of unspecified artificial shoulder joint; Z83.3 Family history of diabetes mellitus; Z81.8 Family history of other mental and behavioral disorders; Z82.49 Family history of ischemic heart disease and other diseases of the circulatory system; Z83.2 Family history of diseases of the blood and blood-forming organs and certain disorders involving the immune mechanism
CPT/HCPCS: 99285 ×2; 96360 ×2; 36415; 93005; 84300; 84540; 83880; 82570; 80053; 80048; 84443; 84133; 82607; 82728; 82550; 82553; 82746; 83540; 83550; 83735; 84484; 85025; 85027; 85610; 85730; 81003; 71046; 71275; G0378 ×2; C8929; J7512 ×2; Q9950; Q9967; 93306

== ENCOUNTER → 2017-12-23 | Outpatient (CLI) | payer MEDICARE, OTHER ==
[2017-12-23 18:01] LABS: Albumin 4.5 g/dL (3.80-4.90); Albumin/Globulin Ratio 1.88 (1.20-2.10); Anion Gap 6.6 mmol/L (4.00-12.00); Calcium 9.5 mg/dL (8.7-10.3); Carbon Dioxide 26.4 mmol/L (21.6-31.8); Globulin 2.4 g/dL (2.1-3.7); Potassium 4.3 mmol/L (3.5-5.5); Total Bilirubin 0.5 mg/dL (0.2-1.2); Total Protein 6.9 g/dL (6.2-8.2)
== END | disposition home or self-care (01) ==
LOC: LABWHC1 08:17
PROVIDERS: ATTEND Internal Medicine Endocrinology, Diabetes & Metabolism
DX: E03.9 Hypothyroidism, unspecified (principal); I10 Essential (primary) hypertension; E55.9 Vitamin D deficiency, unspecified
CPT/HCPCS: 36415; 80053; 82306; 84439; 84443

== ENCOUNTER → 2018-05-21 | Outpatient (CLI) | payer MEDICARE, OTHER | END | disposition home or self-care (01) | LOC: LABPAT 11:16 | PROVIDERS: ATTEND Orthopaedic Surgery | DX: Z01.812 Encounter for preprocedural laboratory examination (principal); M16.11 Unilateral primary osteoarthritis, right hip | CPT/HCPCS: 36415; 86850; 86900; 86901; 87070 ==

== ENCOUNTER 2018-06-01 08:00 | Inpatient (IN) | payer MEDICARE, OTHER ==
--- NOTE | 2018-05-31 08:48 | HP ---
HISTORY AND PHYSICAL CHIEF COMPLAINT: Right hip pain. 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 It has worsened recently. He is having groin and thigh pain with weightbearing activities. It is causing him to limp. He has tried medications with only partial temporary relief. PAST MEDICAL HISTORY: Significant for hypertension, hyperlipidemia, arthritis, heart disease to include coronary artery disease and atrial fibrillation. PAST SURGICAL HISTORY: Significant for previous coronary artery bypass grafting in addition to right total shoulder arthroplasty. CURRENT MEDICATIONS: 1. Aspirin. 2. Atorvastatin. 3. Cortef. 4. Metoprolol. 5. Omeprazole. 6. Synthroid. 7. Warfarin. ALLERGIES: He has allergies to SULFA. FAMILY HISTORY: Family history is noncontributory. SOCIAL HISTORY: Negative for current tobacco or alcohol use. REVIEW OF SYSTEMS: Sixteen-point review of systems otherwise reviewed and is noncontributory. PHYSICAL EXAMINATION: On examination, the patient is approximately 5 feet 6 inches, 170 pounds of mesomorphic habitus. HEENT exam is nonfocal. Neck is supple. Passive motion right hip, flexion 80 degrees, external rotation with the hip flexed 60 degrees, internal rotation 0 degrees with pain. Clinically, he has got 1 cm shortening right lower extremity compared to left. He does have an antalgic gait pattern. His distal neurovascular exam appears intact in the right lower extremity. X-rays to include AP and lateral views of the right hip obtained in the office show severe osteoarthrosis with [id number] changes. IMPRESSION: 1. Right hip severe osteoarthrosis. 2. History of coronary artery disease, status post bypass grafting. 3. History of atrial fibrillation, on anticoagulation. 4. History of cortical adrenal insufficiency. RECOMMENDATIONS: I talked to the patient at length regarding his condition and treatment options. At this point, he is quite symptomatic related to his osteoarthrosis. After a thorough discussion, he opts to proceed with surgery. We will plan to proceed with right total hip arthroplasty utilizing an anterior approach. We will reinstitute DVT prophylaxis postoperatively. His lavatory attendant did recommend higher dose of Cortef the day of surgery. MMODL / IJN: [id number] /
[~2018-06-01 08:00] MED LIST changes: +DEXAMETHASONE SOD PHOSPHATE 10 MG/ML 1 ML VIAL IV ONE; +HYDROmorphone 0.5 MG/0.5 ML SYRINGE IVP PRN; +MIDAZOLAM (PF) 2 MG/2 ML VIAL IV PRN; +ONDANSETRON 4 MG/2 ML VIAL IVP ONE; -ONDANSETRON ODT 4 MG TAB PO ONE; +SCOPOLAMINE 1.5MG/72HR PATCH TRANSDERM ONE; +TRANEXAMIC ACID 1,000 MG in SODIUM CHLORIDE 0.9% 100 ML IVPB ONE; -TRANEXAMIC ACID 1,000 MG in SODIUM CHLORIDE 0.9% 50 ML IVPB ONE
[2018-06-01] MEDS ORDERED: HYDROCORTISONE SUCCINATE 100 MG/2 ML VIAL IV ONE (09:29)
[2018-06-01] MEDS: LACTATED RINGERS 1,000 ML IV SCH (09:29)
[2018-06-01 09:33] LABS: INR 1.1 (<1.2); Prothrombin Time 11.5 sec (9.0-12.0)
[2018-06-01 09:49] LABS: Glucose,Whole Blood 83 mg/dL (75-99)
[2018-06-01] MEDS ORDERED: TRANEXAMIC ACID 1,000 MG/10 ML VIAL ONE (10:31)
[2018-06-01] MEDS ORDERED: diphenhydrAMINE 50 MG/ML 1 ML VIAL ONE (10:31)
[2018-06-01] MEDS ORDERED: KETAMINE 10 MG/ML 20 ML VIAL ONE (10:31)
[2018-06-01] MEDS ORDERED: SODIUM CHLORIDE 0.9% IRRIG 1,000 ML BTL IRRIGATION ONE (10:31)
[2018-06-01] MEDS ORDERED: ePHEDrine SULFATE/0.9% NACL/PF 50 MG/5 ML SYRINGE IV ONE (10:31)
[2018-06-01] MEDS ORDERED: HEPARIN SODIUM,PORCINE 10,000 UNIT/ML 1 ML VIAL ONE (10:31)
[2018-06-01] MEDS ORDERED: SODIUM CHLORIDE 0.9% 100 ML BAG ONE (10:31)
[2018-06-01] MEDS ORDERED: MIDAZOLAM 2 MG/2 ML VIAL ONE (10:31)
[2018-06-01] MEDS ORDERED: SODIUM CHLORIDE 0.9% 50 ML with ceFAZolin 2 GM IV ONE ×2 (10:45)
[2018-06-01] MEDS ORDERED: LACTATED RINGERS 1,000 ML IV ONE (11:18)
[2018-06-01] MEDS ORDERED: traMADol 50 MG TAB PO PRN (12:19)
[2018-06-01] MEDS ORDERED: ONDANSETRON 4 MG/2 ML VIAL IVP PRN (12:19)
[2018-06-01] MEDS ORDERED: ACETAMINOPHEN TAB 325 MG TAB PO PRN (12:19)
[2018-06-01] MEDS ORDERED: NALOXONE 0.4 MG/ML 1 ML VIAL IV PRN (12:19)
[2018-06-01] MEDS ORDERED: HYDROmorphone 0.5 MG/0.5 ML SYRINGE IVP PRN (12:19)
[2018-06-01] MEDS ORDERED: MAGNESIUM HYDROXIDE 2,400 MG/10 ML CUP PO PRN (12:19)
[2018-06-01] MEDS ORDERED: ceFAZolin 3,000 MG in SODIUM CHLORIDE 0.9% IRRIGATIO 3,000 ML IRRIGATION ONE (12:32)
--- NOTE | 2018-06-01 12:48 | P.OP ---
Date of Procedure: 06/01/18 Preoperative Diagnosis: Right hip severe osteoarthrosis Postoperative Diagnosis: Same Procedure(s) Performed: Right total hip arthroplastyanterior approachpress-fit Implants: Depuy Corail size 11 press-fit collared standard femoral stem, 36 mm +1.5 cobalt chrome femoral head, 54 mm [place] acetabular shell with neutral polyethylene liner Anesthesia: spinal Surgeon: Miguel Angel Downs Estimated Blood Loss (ml): 600 Pathology: other (Femoral head) Condition: stable Disposition: PACU Indications for Procedure: Patient is a 78-year-old male presents with progressive right hip pain secondary oteoarthrosis despite conservative measures. A discussion of the risks and benefits of operative intervention versus continued conservative measures was made with the patient. He opted to proceed with surgery. Operative risks to include infection, neurovascular injury, development of blood clots, possible component loosening, possible instability, possible leg length discrepancy, possible fracture, and possible need for subsequent procedures was discussed. Informed consent was obtained. Operative Findings: As below Description of Procedure: The patient was brought to the operating room, and after induction of spinal anesthesia was placed supine on the Evangelina table. Positioning was checked with fluoroscopy. The right hip was then prepped and draped in a normal fashion. A 12 cm incision was then made starting 2 fingerbreadths distal and 3 finger breaths posterior to the ASIS in line with the proximal femur. The skin was incised sharply. Subcutaneous tissues were divided sharply. Electrocautery was used for hemostasis. The fascia was split in line with skin incision. The interval between the sartorius and tensor fascia joie was then bluntly developed. The posterior fascia was opened with electrocautery. The lateral circumflex vessels were identified and cauterized prior to sectioning. A retractor was placed along the superior femoral neck as well as the anterior acetabular rim. A wide capsulotomy was performed. The neck cut was then made at a 45 angle to the shaft approximately 1 1/2 cm above the level of the lesser trochanter. The head was extracted. Attention was then paid towards preparing the acetabular. Anterior and posterior retractors were placed. The remaining capsular labral tissue sharply debrided clearly defining the acetabular margins. I began reaming with a 49 mm reamer taking care to initially medialize then reaming at 45 of abduction and 20 of anteversion. Sequential reaming is performed up to 53 mm. A trial 54 mm acetabular shell was inserted in the same orientation and was fully seated. There was good rim fit and stability. Positioning was checked with fluoroscopy. The final 54 mm acetabular shell was inserted again at 45 of abduction and 20 of anteversion. This was fully seated. There was good rim fit and stability. I did place a 6.5 mm x 25 mm cancellus screw posterior superior with good purchase. Again fluoroscopy was used to check the adequacy of placement. A neutral polyethylene liner was gently impacted. Care was taken to avoid any soft tissue interposition. Pulsatile lavage was utilized. Attention was then paid towards preparing the proximal femur. The central region was cleared of soft tissue. A canal finder was used to find the femoral canal. Sequential broaching was performed up to size 11 taking care to lateralize proximally. A calcar mill was used to fashion the medial calcar. There was good rotational stability. A standard neck along with a 36+1.5 mm head was placed. The hip was gently reduced. Fluoroscopy was used to check the adequacy of positioning along with leg lengths. I felt both were good. The hip was gently dislocated. The trial components were removed. The final size 11 collared standard press- fit femoral stem was inserted parallel to the posterior cortex. This was fully seated and there was good rotational stability. A 36 mm +1.5 head was placed. This was gently impacted. The hip was then gently reduced. Final fluoroscopic view showed adequate placement implant along with zoroastrianism of leg length. Stability was checked with 80 of external rotation and 60 of extension of the right hip. The wound was irrigated with sterile lavage. The fascia was closed with running 0 Vicryl suture. There was minimal drainage therefore a deep drain was not placed. The second dose of IV TXA was given. The subcutaneous tissues were reapproximated interrupted 2-0 Vicryl sutures. The skin was reapproximated with 3-0 subcuticular strata fix suture. Skin tape and adhesive was applied. A sterile dressing was applied. The patient was then awoken from sedation and transferred to recovery room in good condition. Blood loss was estimated at 600 mL. He did receive Cell Saver back. No complications were incurred. Sponge and needle counts were correct at the end of the case.
--- NOTE | 2018-06-01 13:22 | XR ---
Limited right hip HISTORY: Status post right hip arthroplasty Single frontal view of the right hip Patient is status post right hip arthroplasty. There is anatomic alignment. Lucency in the soft tissu es compatible with postop state. There are soft tissue calcifications noted incidentally which may be due to remote trauma. IMPRESSION: Orthopedic follow-up.
--- NOTE | 2018-06-01 13:25 | FL ---
Fluoroscopy HISTORY: Hip replacement 37 seconds fluoroscopy time supplied to the referring clinician. 1 intraoperative C-arm image docume nts the procedure. See dictated report from orthopedic surgery.
--- NOTE | 2018-06-01 13:26 | XR ---
Limited right hip HISTORY: Hip replacement Single intraoperative image documents the procedure.
[2018-06-01 17:11] VITALS: BMI 27.8
[2018-06-01] MEDS ORDERED: WARFARIN 5 MG TAB PO ONE (18:00)
[2018-06-01] MEDS: HYDROcodone/APAP 5-325MG 1 EACH TAB PO PRN (18:14)
[2018-06-01] MEDS: ceFAZolin IN SWFI 2 GM/20 ML SYRINGE IVP SCH (20:24)
[2018-06-01] MEDS ORDERED: SENNOSIDES-DOCUSATE SODIUM 1 EACH TAB PO SCH (21:00)
[2018-06-02] MEDS: HYDROcodone/APAP 5-325MG 1 EACH TAB PO PRN ×3 (02:29→16:24)
[2018-06-02] MEDS: ceFAZolin IN SWFI 2 GM/20 ML SYRINGE IVP SCH (02:29)
[2018-06-02 08:05] VITALS: BP 94/53; PULSE 100; RESP 15; TEMP 98.1
[2018-06-02 08:25] LABS: Basophils % (A) 0 %; Eosinophils # (A) 0.1 k/uL (0-0.7); Eosinophils % (A) 1 %; HCT 30.2 % (39.0-53.0); Lymphocytes # (A) 1.6 k/uL (1.0-4.8); Lymphocytes % (A) 15 %; MCH 31.8 pg (25.0-35.0); MCHC 31.6 g/dL (31.0-37.0); MCV 100.5 fL (80.0-100.0); Macrocytosis Slight; Monocytes # (A) 0.7 k/uL (0-1.0); Monocytes % (A) 7 %; Neutrophils # (A) 8.1 k/uL (1.3-7.7); Neutrophils % (A) 76 %; Platelet Count 228 k/uL (150-450); RDW 14.9 % (11.5-15.5); WBC 10.7 k/uL (3.8-10.6)
[2018-06-02 08:34] LABS: HGB 9.6 gm/dL (13.0-17.5)
[2018-06-02 08:43] LABS: INR 1.1 (<1.2); Prothrombin Time 11.1 sec (9.0-12.0)
[2018-06-02] MEDS ORDERED: FAMOTIDINE 20 MG TAB PO SCH (09:00)
[2018-06-02] MEDS ORDERED: HEPARIN SODIUM,PORCINE 5,000 UNIT/ML 1 ML VIAL SQ SCH ×2 (09:00→16:00)
[2018-06-02] MEDS: LACTATED RINGERS 1,000 ML IV SCH (10:30)
--- NOTE | 2018-06-02 12:19 | P.PN ---
Subjective Progress Note Date: 06/02/18 Principal diagnosis: Status post direct anterior right total hip arthroplasty Patient evaluated today bedside, he is resting comfortably. Exam related with therapy. He is interested in going home. Denies any chest pain or shortness of breath Objective - Vital Signs Vital signs: Vital Signs Temp 98.1 F 06/02/18 07:00 Pulse 100 06/02/18 07:00 Resp 15 06/02/18 07:00 BP 94/53 06/02/18 07:00 Pulse Ox 93 L 06/02/18 10:04 Intake & Output 06/01/18 06/02/18 06/02/18 18:59 06:59 18:59 Intake Total 2211 580 500 Output Total 1000 1175 Balance 1211 -595 500 Intake: IV 1851 Intake, IV Titration 180 Amount Lactated Ringers 1,000 ml 180 @ 20 mls/hr IV .Q24H [facility] Rx#:[id number] Oral 360 400 500 Output: Urine 1175 Estimated Blood Loss 1000 Other: Voiding Method Toilet Toilet Urinal Urinal # Voids 3 - Exam Right lower extremity: Incision is clean, dry, and intact. The exofin fusion tape is in good condition. There is minimal soft tissue swelling and ecchymosis surrounding the medial and lateral aspects of the incision. Calf is soft, no tenderness with palpation. Plantar flexion, dorsiflexion, EHL, FHL are intact. Sensory exam to light touch throughout the extremity is intact, dorsal pedis pulses 2+. - Labs CBC & Chem 7: 06/02/18 07:58 Labs: Abnormal Lab Results - Last 24 Hours (Table) 06/02/18 Range/Units 07:58 WBC 10.7 H (3.8-10.6) k/uL RBC 3.00 L (4.30-5.90) m/uL Hgb 9.6 L D (13.0-17.5) gm/dL Hct 30.2 L (39.0-53.0) % MCV 100.5 H (80.0-100.0) fL Neutrophils # 8.1 H (1.3-7.7) k/uL Assessment and Plan Plan: Assessment: Postop day 1 status post direct anterior right total hip arthroplasty Plan: Pain control, we'll discharge home on low-dose oral pain medication GI and DVT prophylaxis, patient will resume his home Coumadin dose with every today INR checks. We'll also discharge on heparin until properly bridged Medical recommendations Wound care was discussed Home therapy and nursing after discharge Discharge planning: We'll discharge to home today Time with Patient: Less than 30
--- NOTE | 2018-06-02 12:25 | P.DS ---
Providers Date of admission: 06/01/18 08:17 Expected date of discharge: 06/02/18 Attending physician: Miguel Angel Downs Consults: 06/01/18 12:22 Consult Physician Routine Consulting Provider: Camacho Coello Consult Reason/Comments: Medical Management Do you want consulting provider notified?: Yes Primary care physician: Camacho Coello [facility] Course: Date of admission: 06/01/2018 Date of discharge: 06/02/2018 Admission diagnosis: Status post direct anterior right total hip arthroplasty Discharge diagnosis: Same Attending physician: Dr. Downs Surgical procedures: Direct anterior right total hip arthroplasty Brief history: Patient is a 78-year-old male with a history of progressive primary right hip osteoarthritis. At this point patient has failed conservative treatment measures and has opted to proceed with a elective direct anterior right total hip arthroplasty. Hospital course: Details of patient's surgery can be found in operative report. Patient tolerated the procedure well and was subsequently transported to orthopedic floor. Patient's orthopeidc and medical care was provided daily. Patient had daily laboratory tests performed for evaluation of overall blood counts. Patient had daily physical therapy to include strengthening range of motion as well as education with walker ambulation. Patient was treated with Coumadin for their postoperative DVT prophylaxis during their inpatient stay. Patient was noted to have a relatively uneventful postoperative course. Patient reported satisfactory pain control with oral pain medications by postoperative day 0. Patient showed satisfactory progress with physical therapy. Patient moved steadily through the program and had no difficulty meeting the goals by postoperative day 1. Given patient's otherwise satisfactory course and having met physical therapy goals, plan is to discharge patient home on postoperative day 1. Discharge condition/disposition: Patient will be discharged home in stable condition. Discharge medications: Instructions are given on resumption of patient's normal daily medications per primary care recommendation, in addition patient will be prescribed . Discharge instructions: 1. Wound care and infection precautions, keep incision dry and covered while showering, no lotions, creams, moisturizers. No soaking, tubs, pools, hottubs. Do not scrub over the incision. 2. Weight-bear as tolerated with walker / cane until follow-up. 3. Ice and elevate when necessary. Do not exceed 20 minutes per hour with ice pack. 4. Utilize compression sleeve until seen at first follow up appointment. 5. Visiting nursing care. 6. Home physical therapy. 7. Pain meds and anticoagulants per prescription. 8. Pain medication has potential to cause constipation. Increase oral fluid and fiber intake. Contact primary care provider if you have not had a bowel movement within 48 hours after discharge 9. No anti-inflammatory medication until discussed at first post operative vi sit, this including Motrin, Aleve, Mobic, Diclofenac. 10. Follow up in office at 2 weeks postop with Darío Elizabeth PA-C 11. Follow up with your primary care doctor 7-10 days after discharge. 12. Contact [facility] with any questions, . Procedures: Direct anterior right total hip arthroplasty Patient Condition at Discharge: Good Plan - Discharge Summary Discharge Rx Participant: Yes New Discharge Prescriptions: New Docusate [Colace] 100 mg PO DAILY #30 capsule Ferrous Sulfate [Feosol] 325 mg PO BID #60 tab Heparin Sodium,Porcine [Heparin Sodium] 5,000 unit SQ Q12HR #14 vial Hydrocodone/Acetaminophen [Bartow 5-325] 1 each PO Q6HR PRN #28 tab PRN Reason: Pain No Action Warfarin [Coumadin] 7.5 mg PO SUTUTHSA Levothyroxine Sodium [Synthroid] 25 mcg PO SUWE Levothyroxine Sodium [Synthroid] 50 mcg PO Ergocalciferol [Vitamin D2 (DRISDOL)] 50,000 unit PO Q30D Calcium Carbonate [Calcium] 600 mg PO DAILY rOPINIRole HCL [Requip] 2 mg PO QAM rOPINIRole HCL [Requip] 4 mg PO HS Hydrocortisone [Cortef] 20 mg PO QAM Aspirin 81 mg PO DAILY chew Atorvastatin [Lipitor] 20 mg PO DAILY tab Fludrocortisone [Florinef] 0.1 mg PO WETHFRSA tab FLUoxetine HCL [PROzac] 10 mg PO QAM Metoprolol Tartrate [Lopressor] 25 mg PO HS Warfarin [Coumadin] 3.75 mg PO MOWEFR rOPINIRole HCL [Requip] 3 mg PO HS Restfull Legs Supplement 5 cap PO HS Acetaminophen [Tylenol Extra Strength] 500 mg PO Q6H PRN PRN Reason: Pain Metoprolol Tartrate [Lopressor] 50 mg PO DAILY Discharge Medication List Levothyroxine Sodium [Synthroid] 25 mcg PO SUWE 11/17/13 [History] Levothyroxine Sodium [Synthroid] 50 mcg PO MOTUTHFRSA 11/17/13 [History] Warfarin [Coumadin] 7.5 mg PO SUTUTHSA 11/17/13 [History] Ergocalciferol [Vitamin D2 (DRISDOL)] 50,000 unit PO Q30D 02/03/14 [History] Calcium Carbonate [Calcium] 600 mg PO DAILY 09/22/16 [History] Hydrocortisone [Cortef] 20 mg PO QAM 10/15/17 [History] rOPINIRole HCL [Requip] 2 mg PO QAM 10/15/17 [History] rOPINIRole HCL [Requip] 4 mg PO HS 10/15/17 [History] Aspirin 81 mg PO DAILY chew 10/16/17 [Rx] Atorvastatin [Lipitor] 20 mg PO DAILY tab 10/16/17 [Rx] Fludrocortisone [Florinef] 0.1 mg PO WETHFRSA tab 10/16/17 [Rx] FLUoxetine HCL [PROzac] 10 mg PO QAM 05/20/18 [History] Metoprolol Tartrate [Lopressor] 25 mg PO HS 05/20/18 [History] Restfull Legs Supplement 5 cap PO HS 05/20/18 [History] Warfarin [Coumadin] 3.75 mg PO MOWEFR 05/20/18 [History] rOPINIRole HCL [Requip] 3 mg PO HS 05/20/18 [History] Acetaminophen [Tylenol Extra Strength] 500 mg PO Q6H PRN 05/27/18 [History] Metoprolol Tartrate [Lopressor] 50 mg PO DAILY 06/01/18 [History] Docusate [Colace] 100 mg PO DAILY #30 capsule 06/02/18 [Rx] Ferrous Sulfate [Feosol] 325 mg PO BID #60 tab 06/02/18 [Rx] Heparin Sodium,Porcine [Heparin Sodium] 5,000 unit SQ Q12HR #14 vial 06/02/18 [Rx] Hydrocodone/Acetaminophen [Bartow 5-325] 1 each PO Q6HR PRN #28 tab 06/02/18 [Rx] Follow up Appointment(s)/Referral(s): [facility], [NON-STAFF] - As Needed Her Medical,Equipment [NON-STAFF] - As Needed (walker) Camacho Coello MD [Primary Care Provider] - 06/09/18 10:15 am Roberto Elizabeth PAC [PHYSICIAN DOOR TENDER] - 06/16/18 3:10 pm Ambulatory/Diagnostic Orders: Complete Blood Count w/diff [LAB.AMB] Location: None Selected Prothrombin Time INR [LAB.AMB] Location: None Selected Activity/Diet/Wound Care/Special Instructions: Orthopedic Discharge Instructions: 1. Wound care and infection precautions, keep incision dry and covered while showering, no lotions, creams, moisturizers. No soaking, pools, hot tubs. Do not scrub over incision. 2. Weight-bear as tolerated with walker / cane until follow-up. 3. Ice and elevate when necessary. Do not exceed 20 minutes per hour with ice pack. 4. Utilize compression sleeve until seen at first follow up appointment. 5. Pain meds and anticoagulants per prescription. 6. Pain medication has potential to cause constipation. Increase oral fluid and fiber intake. Contact primary care provider if you have not had a bowel movement within 48 hours after discharge. 7. No anti-inflammatory medication until discussed at first post operative visit, this including Motrin, Aleve, Mobic, Diclofenac. 8. Follow up in office at 2 weeks postop with Darío Elizabeth PA-C 9. Follow up with your primary care doctor 7-10 days after discharge. 10. Contact [facility] with any questions, . Discharge Disposition: HOME WITH HOME HEALTH SERVICES
[2018-06-02] MEDS ORDERED: FLUDROCORTISONE 0.1 MG TAB PO SCH (15:00)
[2018-06-02] MEDS ORDERED: HYDROCORTISONE 20 MG TAB PO SCH (15:00)
[2018-06-02] MEDS ORDERED: FLUoxetine HCL 10 MG CAP PO SCH (15:00)
[2018-06-02] MEDS ORDERED: LEVOTHYROXINE 25 MCG TAB PO SCH (15:00)
[2018-06-02] MEDS ORDERED: WARFARIN 5 MG TAB PO SCH (16:00)
[2018-06-02] MEDS ORDERED: WARFARIN 5 MG TAB PO ONE (18:00)
[2018-06-02] MEDS ORDERED: METOPROLOL TARTRATE 25 MG TAB PO SCH (21:00)
[2018-06-02] MEDS ORDERED: [UNRECOGNIZED DRUG - OTHER] PO SCH (21:00)
--- NOTE | 2018-06-02 22:33 | P.CONS ---
History of Present Illness - Reason for Consult Consult date: 06/02/18 Clinical management of multiple medical problems - Chief Complaint Active right hip arthroplasty - History of Present Illness Patient is a 78-year-old male with a known history of atrial fibrillation on anticoagulation with warfarin, coronary artery disease with history of CABG. History of cardiac ablation,, stent placement, hypertension, hyperlipidemia, history of MD, obstructive sleep apnea, hypothyroidism and other multiple medical problems including Parkinson's disease and mild cognitive impairment was admitted to the hospital for right hip arthroplasty. Patient failed conservative treatment measures and opted to proceed with elective right total hip arthroplasty. Patient underwent direct anterior right total hip arthroplasty. Tolerated the procedure very well. Currently is able to ambulate with support/walker. Denied any pain. No nausea vomiting or abdominal pain. No complaints of chest pain or shortness of breath. No headache or dizziness or lightheadedness.. Patient is slightly hypotensive currently. Otherwise denied any symptoms. Review of Systems Constitutional: Patient denies any fever or chills . No generalized weakness or weight loss. Abdomen: Patient denied nausea vomiting and diarrhea and abdominal pain. Cardiovascular: Patient denies any chest pain or short of breath no palpitations. Respiratory: patient denied any cough is from production. No shortness of breath Neurologic: Patient denied any numbness or tingling headache. Musculoskeletal: Patient denies any complaints of joint swelling or deformity. Skin: Negative Psychiatric: Negative Endocrine: No heat or cold intolerance. No recent weight gain. Genitourinary: No dysuria or hematuria. All other 14 point ROS negative except the above Past Medical History Past Medical History: Atrial Fibrillation, Coronary Artery Disease (CAD), Chest Pain / Angina, Heart Failure, Eye Disorder, GERD/Reflux, Hearing Disorder / Deafness, Hyperlipidemia, Hypertension, Myocardial Infarction (MD), Neurologic Disorder, Osteoarthritis (OA), Sleep Apnea/CPAP/BIPAP, Supraventricular Tachycardia (SVT), Thyroid Disorder Additional Past Medical History / Comment(s): Jarad's disease, restless leg- states "cannot sit still at night time,aortic aneurysm-Dr. SIMON Christiansen following, was tx. in past for Parkinson's ; right eye doesn't react is dialated,uses cpap Last Myocardial Infarction Date:: 1993 History of Any Multi-Drug Resistant Organisms: None Reported Past Surgical History: Cardiac Ablation, Coronary Bypass/CABG, Heart Catheterization With Stent, Hernia Repair, Orthopedic Surgery Additional Past Surgical History / Comment(s): double bypass, abdominal hernia repair, rt inguinal hernia repair x 3, myles total shoulder replaced, retinal surgery to bilateral eyes,myles cataracts Past Anesthesia/Blood Transfusion Reactions: No Reported Reaction Additional Past Anesthesia/Blood Transfusion Reaction / Comm: no known hx blood transfusion Date of Last Stent Placement:: 2015 Past Psychological History: Depression Smoking Status: Never smoker Past Alcohol Use History: None Reported Past Drug Use History: None Reported - Past Family History Sister(s) Family Medical History: Dementia Mother Family Medical History: Diabetes Mellitus, Deep Vein Thrombosis (DVT) Father Family Medical History: AFIB, Coronary Artery Disease (CAD), Myocardial Infarction (MD) Medications and Allergies Home Medications Medication Instructions Recorded Confirmed Type RX: Levothyroxine Sodium 25 mcg PO SUWE 11/17/13 06/01/18 History [Synthroid] RX: Levothyroxine Sodium 50 mcg PO MOTUTHFRSA 11/17/13 06/01/18 History [Synthroid] RX: Warfarin [Coumadin] 7.5 mg PO SUTUTHSA 11/17/13 06/01/18 History RX: Ergocalciferol [Vitamin D2 50,000 unit PO Q30D 02/03/14 06/01/18 History (DRISDOL)] RX: Calcium Carbonate [Calcium] 600 mg PO DAILY 09/22/16 06/01/18 History RX: Hydrocortisone [Cortef] 20 mg PO QAM 10/15/17 06/01/18 History RX: rOPINIRole HCL [Requip] 2 mg PO QAM 10/15/17 06/01/18 History RX: rOPINIRole HCL [Requip] 4 mg PO HS 10/15/17 06/01/18 History RX: Aspirin 81 mg PO DAILY chew 10/16/17 06/01/18 Rx RX: Atorvastatin [Lipitor] 20 mg PO DAILY tab 10/16/17 06/01/18 Rx RX: Fludrocortisone [Florinef] 0.1 mg PO WETHFRSA tab 10/16/17 06/01/18 Rx Metoprolol Tartrate [Lopressor] 25 mg PO HS 05/20/18 06/01/18 History RX: FLUoxetine HCL [PROzac] 10 mg PO QAM 05/20/18 06/01/18 History RX: Warfarin [Coumadin] 3.75 mg PO MOWEFR 05/20/18 06/01/18 History Restfull Legs Supplement 5 cap PO HS 05/20/18 06/01/18 History rOPINIRole HCL [Requip] 3 mg PO HS 05/20/18 06/01/18 History Acetaminophen [Tylenol Extra 500 mg PO Q6H PRN 05/27/18 06/01/18 History Strength] Metoprolol Tartrate [Lopressor] 50 mg PO DAILY 06/01/18 06/01/18 History Docusate [Colace] 100 mg PO DAILY #30 capsule 06/02/18 Rx Heparin Sodium,Porcine [Heparin 5,000 unit SQ Q12HR #14 vial 06/02/18 Rx Sodium] Hydrocodone/Acetaminophen [Justice 1 each PO Q6HR PRN #28 tab 06/02/18 Rx 5-325] RX: Ferrous Sulfate [Feosol] 325 mg PO BID #60 tab 06/02/18 Rx Allergies Allergy/AdvReac Type Severity Reaction Status Date / Time bee pollen [Bee Pollen] Allergy Anaphylaxis Verified 06/01/18 13:46 Sulfa (Sulfonamide Allergy Rash/Hives Verified 06/01/18 13:46 Antibiotics) wasp Allergy Anaphylaxis Uncoded 06/01/18 09:11 Physical Exam Vitals: Vital Signs Temp Pulse Pulse Resp BP Pulse Ox 06/02/18 10:04 93 L 06/02/18 07:00 98.1 F 100 15 94/53 94 L 06/02/18 01:39 97.6 F 105 H 18 97/65 95 06/01/18 23:58 19 06/01/18 20:59 97.6 F 86 19 104/69 97 06/01/18 20:20 86 19 06/01/18 17:00 15 06/01/18 16:30 79 115/72 06/01/18 16:15 81 110/69 06/01/18 16:00 80 99/62 06/01/18 15:45 76 102/66 06/01/18 15:30 81 104/66 06/01/18 15:15 81 107/72 06/01/18 15:00 76 103/64 06/01/18 14:45 78 115/74 06/01/18 14:30 98.4 F 77 15 111/69 99 04/02/19 13:30 69 16 141/73 98 06/01/18 13:12 99 16 130/62 99 06/01/18 12:57 80 16 109/73 98 06/01/18 12:42 96.8 F L 81 12 111/73 97 Intake and Output 06/01/18 06/02/18 06/02/18 22:59 06:59 14:59 Intake Total 360 580 Output Total 125 1050 Balance 235 -470 Intake: Intake, IV Titration 180 Amount Lactated Ringers 1,000 ml 180 @ 20 mls/hr IV .Q24H [facility] Rx#:[id number] Oral 360 400 Output: Urine 125 1050 Other: Voiding Method Toilet Toilet Urinal Urinal # Voids 3 PHYSICAL EXAMINATION: Patient is lying in the bed comfortably, no acute distress, awake alert and oriented.. HEENT: Normocephalic. Neck is supple. Pupils reactive. Nostrils clear. Oral cavity is moist. Ears reveal no drainage. Neck reveals no JVD, carotid bruits, or thyromegaly. CHEST EXAMINATION: Trachea is central. Symmetrical expansion. Lung farmer clear to auscultation and percussion. CARDIAC: Normal S1, S2 with no gallops. No murmurs ABDOMEN: Soft. Bowel sounds normal. No organomegaly. No abdominal bruits. Extremities: reveal no edema. No clubbing or cyanosis Neurologically awake, alert, oriented x3 with well-coordinated movements. No focal deficits noted Skin: No rash or skin lesions. Psychiatric: Coperative. Nonsuicidal Musculoskeletal: No joint swelling or deformity. Normal range of motion. Right lateral hip surgical site intact. Results CBC & Chem 7: 06/02/18 07:58 Labs: Abnormal Lab Results - Last 24 Hours (Table) 06/02/18 Range/Units 07:58 WBC 10.7 H (3.8-10.6) k/uL RBC 3.00 L (4.30-5.90) m/uL Hgb 9.6 L D (13.0-17.5) gm/dL Hct 30.2 L (39.0-53.0) % MCV 100.5 H (80.0-100.0) fL Neutrophils # 8.1 H (1.3-7.7) k/uL Assessment and Plan Assessment: Status post Direct anterior right total hip arthroplasty postoperative day 1 Degenerative joint disease Coronary artery disease with history of stent placement and CABG Paroxysmal atrial fibrillation on anticoagulation with Coumadin Obstructive sleep apnea on CPAP at home History of SVT Hypothyroidism Jarda's disease Restless legs syndrome Parkinson's disease Hypertension Hyperlipidemia GERD Hearing disorder/deafness Depression Plan: Patient will be continued on pain management which is controlled now. Continue with anti-correlation. Continue the home medications and follow closely. Encourage incentive spirometry and ambulation. Continue with Coumadin dosing. Further recommendations based on clinical course. Thank you for your consult. Time with Patient: Greater than 30
[2018-06-03] MEDS ORDERED: LEVOTHYROXINE 50 MCG TAB PO SCH (06:30)
[2018-06-03] MEDS ORDERED: ATORVASTATIN 20 MG TAB PO SCH (09:00)
[2018-06-03] MEDS ORDERED: METOPROLOL TARTRATE 50 MG TAB PO SCH (09:00)
== END 2018-06-02 17:05 | disposition home health service (06) | DRG 470 ==
LOC: 2ORMAIN 08:17 → 4SSUR 13:18
PROVIDERS: ADMIT Orthopaedic Surgery; ATTEND Orthopaedic Surgery
PROC: 0SR902A Replacement of Right Hip Joint with Metal on Polyethylene Synthetic Substitute, Uncemented, Open Approach (ICD-10-PCS; principal; 2018-06-01 09:35)
DX: M16.11 Unilateral primary osteoarthritis, right hip (principal); E27.1 Primary adrenocortical insufficiency; I95.9 Hypotension, unspecified; I11.0 Hypertensive heart disease with heart failure; G20 Parkinson's disease; I48.0 Paroxysmal atrial fibrillation; I50.9 Heart failure, unspecified; E03.9 Hypothyroidism, unspecified; E78.5 Hyperlipidemia, unspecified; F32.9 Major depressive disorder, single episode, unspecified; G25.81 Restless legs syndrome; G47.33 Obstructive sleep apnea (adult) (pediatric); H91.90 Unspecified hearing loss, unspecified ear; I25.10 Atherosclerotic heart disease of native coronary artery without angina pectoris; I25.2 Old myocardial infarction; K21.9 Gastro-esophageal reflux disease without esophagitis; G31.84 Mild cognitive impairment of uncertain or unknown etiology; I71.4 Abdominal aortic aneurysm, without rupture; E78.00 Pure hypercholesterolemia, unspecified; E29.1 Testicular hypofunction; N52.9 Male erectile dysfunction, unspecified; M10.00 Idiopathic gout, unspecified site; G89.29 Other chronic pain; M54.9 Dorsalgia, unspecified; Z79.01 Long term (current) use of anticoagulants; Z79.82 Long term (current) use of aspirin; Z79.899 Other long term (current) drug therapy; Z79.890 Hormone replacement therapy; Z95.1 Presence of aortocoronary bypass graft; Z95.5 Presence of coronary angioplasty implant and graft; Z88.2 Allergy status to sulfonamides; Z91.030 Bee allergy status; Z96.619 Presence of unspecified artificial shoulder joint; Z90.49 Acquired absence of other specified parts of digestive tract; Z98.42 Cataract extraction status, left eye; Z98.41 Cataract extraction status, right eye; Z96.1 Presence of intraocular lens; Z82.49 Family history of ischemic heart disease and other diseases of the circulatory system; Z83.3 Family history of diabetes mellitus
CPT/HCPCS: 36415; 73501; 85025; 85610; 86850; 86891; 86900; 86901; 88300; 94760

== ENCOUNTER → 2018-10-08 | Outpatient (CLI) | payer MEDICARE, OTHER ==
--- NOTE | 2018-10-13 09:38 | P.ARTDOP ---
Arterial Doppler LOWER EXTREMITY ARTERIAL DOPPLER: DATE OF SERVICE: 10/08/2018 Reason for study: Restless leg syndrome. Doppler waveforms: Multiphasic bilaterally throughout. Pulse volume recording: []. Pressure gradients: None. Ankle-brachial indices: Greater than 1 bilaterally. Toe pressures: [] on the right, [] on the left Impression: Normal study.
== END | disposition home or self-care (01) ==
LOC: RADUSWWP 13:34
PROVIDERS: ATTEND Family Medicine
DX: I73.9 Peripheral vascular disease, unspecified (principal)
CPT/HCPCS: 93922

== ENCOUNTER → 2018-10-18 | Outpatient (CLI) | payer MEDICARE, OTHER ==
--- NOTE | 2018-10-18 11:39 | CT ---
CT CHEST FOR PULMONARY EMBOLISM. EXAMINATION TYPE: CT angio chest DATE OF EXAM: 10/18/2018 INDICATION: Thoracic Aortic Aneurysm without rupture CT DLP: 629.5 mGycm, Automated exposure control for dose reduction was used. CONTRAST: Patient injected with 80 mL of Isovue 370. COMPARISON: 10/15/2017 TECHNIQUE: CT of the chest is performed on a spiral scan at 2 mm thick sections. Study is performed with intravenous contrast timed for evaluation for pulmonary embolism. This will limit additional po rtions of the evaluation. 3-D MIP images reconstructed by the technologist are reviewed on the compu ter in the coronal and sagittal planes. Reconstructed images were obtained and filmed. FINDINGS: Study is performed for evaluation of the thoracic aorta. No mediastinal or hilar adenopathy enlarged by CT criteria is evident. The ascending aorta diameter at the level of the main pulmonary artery is 4.7 cm. The aorta at the aortic root measures 3.5 cm. T ransverse dimension thoracic aorta arch measures 2.9 cm. Descending thoracic aorta at the level of th e diaphragm measures 2.5 cm. The main pulmonary artery diameter at the bifurcation is 2.6 cm. Lung windows are clear. Limited CT section through the upper abdomen. There is a 2.6 cm cyst measuring 11 Hounsfield units up per anterior left kidney. There may be a 1.3 cm cyst in the superior left lobe liver. IMPRESSIONS: 1. Ascending thoracic aortic aneurysm of 4.7 cm. No enlargement from the comparison is evident.
== END | disposition home or self-care (01) ==
LOC: RADCTMAIN 08:45
PROVIDERS: ATTEND Surgery
DX: I71.2 Thoracic aortic aneurysm, without rupture (principal); Z88.2 Allergy status to sulfonamides
CPT/HCPCS: 82565; 84520; 71275; 36415; Q9967

== ENCOUNTER → 2018-12-20 | Outpatient (CLI) | payer MEDICARE, OTHER ==
[2018-12-20 18:35] LABS: African American GFR (CKD) 74.1 (60.0-200.0); Anion Gap 5.4 mmol/L (4.00-12.00); BUN/Creat Ratio 22.73 Ratio (12.00-20.00); Calcium 9.6 mg/dL (8.7-10.3); Carbon Dioxide 26.6 mmol/L (21.6-31.8); Potassium 4.6 mmol/L (3.5-5.5)
== END | disposition home or self-care (01) ==
LOC: LABWHC1 11:46
PROVIDERS: ATTEND Internal Medicine
DX: E27.1 Primary adrenocortical insufficiency (principal); E03.9 Hypothyroidism, unspecified; E55.9 Vitamin D deficiency, unspecified
CPT/HCPCS: 36415; 80048; 84439; 84443

== ENCOUNTER → 2019-10-11 | Outpatient (CLI) | payer MEDICARE | END | disposition home or self-care (01) | LOC: RADCTMAIN 14:31 | PROVIDERS: ATTEND Surgery | DX: I71.2 Thoracic aortic aneurysm, without rupture (principal); Z88.2 Allergy status to sulfonamides; Z91.030 Bee allergy status | CPT/HCPCS: 82565; 84520 ==

== ENCOUNTER → 2019-10-26 | Outpatient (CLI) | payer MEDICARE ==
--- NOTE | 2019-10-26 16:49 | CT ---
EXAMINATION TYPE: CT chest wo con DATE OF EXAM: 10/26/2019 COMPARISON: 10/18/2018 HISTORY: Follow up for thoracic aortic aneurysm. CT DLP: 364.[address] of the chest was performed with lung and mediastinal window settings submitted. The la ck of contrast limits evaluation of the vascular, mediastinal and parenchymal structures including th e upper abdomen. LUNGS: The lungs are clear and free of infiltrate. No atelectasis. No pulmonary nodule or mass is de tected. No pleural effusion. No CT evidence of interstitial lung disease. MEDIASTINUM/MOR: Ascending thoracic aortic aneurysm measuring 5 cm AP dimension versus 4.7 cm previo usly. In aortic arch and descending thoracic aorta are stable in appearance. Ectasia noted with calci fied mural thrombus. No evidence for dissection or mediastinal hematoma. The heart is enlarged. No ev idence for mediastinal mass. No lymph nodes greater than 1cm. UPPER ABDOMEN: No significant abnormality is seen. OTHER: No significant other abnormality. IMPRESSION: 1. Ascending thoracic aortic aneurysm as noted.
== END | disposition home or self-care (01) ==
LOC: RADCTMAIN 16:25
PROVIDERS: ATTEND Surgery
DX: I71.2 Thoracic aortic aneurysm, without rupture (principal); Z88.2 Allergy status to sulfonamides; Z91.030 Bee allergy status
CPT/HCPCS: 71250

== ENCOUNTER 2020-02-04 11:44 | Emergency (ER) | payer MEDICARE ==
[2020-02-04] MEDS ORDERED: LIDOCAINE 1% INJ 10MG/ML (20 ML MDV) SQ ONE (12:39)
[2020-02-04] MEDS ORDERED: ACETAMINOPHEN TAB 325 MG TAB PO STA (12:39)
[2020-02-04] MEDS ORDERED: BACITRACIN OINT 1 EACH PACKET TOPICAL ONE (12:39)
--- NOTE | 2020-02-04 12:41 | ED ---
Wound/Laceration HPI - General Chief Complaint: Wound/Laceration Stated Complaint: Hand laceration Time Seen by Provider: 02/04/20 12:10 Source: patient Mode of arrival: ambulatory Limitations: no limitations - History of Present Illness Initial Comments: 79-year-old male patient presents to the emergency department today for evaluation of laceration to the left hand. Patient states the injury occurred around 9:30 last evening while he was chiseling a wooden horse. States that he did apply dressing to the area. States he took a shower today and the wound started to bleed again so he presented here for further evaluation. States he does take warfarin on a daily basis. He is unsure when his last tetanus vaccine was given. Denies any significant pain to the area. Denies any difficulty with range of motion to the fingers of the hand. Patient denies any headache, neck pain, back pain, chest pain, shortness of breath, dizziness, weakness, abdominal pain, nausea, vomiting, or difficulties with bowel movements or urination. - Related Data Home Medications Medication Instructions Recorded Confirmed Levothyroxine Sodium [Synthroid] 25 mcg PO SUWE 11/17/13 11/24/19 Warfarin [Coumadin] 7.5 mg PO SUTUTHSA 11/17/13 11/24/19 Ergocalciferol [Vitamin D2 50,000 unit PO Q30D 02/03/14 11/24/19 (DRISDOL)] Warfarin [Coumadin] 3.25 mg PO MOWEFR 05/20/18 11/24/19 Metoprolol Tartrate [Lopressor] 25 mg PO BID 06/01/18 11/24/19 Aspirin EC [Ecotrin Low Dose] 81 mg PO DAILY 11/24/19 11/24/19 FLUoxetine HCL [PROzac] 20 mg PO DAILY 11/24/19 11/24/19 Ferrous Sulfate [Feosol] 325 mg PO DAILY 11/24/19 11/24/19 Fludrocortisone [Florinef] 0.1 mg PO MOWEFRSA 11/24/19 11/24/19 Gabapentin [Neurontin] 100 mg PO HS 11/24/19 11/24/19 Levothyroxine Sodium [Synthroid] 50 mcg PO MOTUTHFRSA 11/24/19 11/24/19 predniSONE 5 mg PO DAILY 11/24/19 11/24/19 rOPINIRole HCL [Requip] 5 mg PO HS 11/24/19 11/24/19 Previous Rx's Medication Instructions Recorded Cephalexin [Keflex] 500 mg PO BID #14 cap 02/04/20 Allergies Allergy/AdvReac Type Severity Reaction Status Date / Time bee pollen [Bee Pollen] Allergy Anaphylaxis Verified 02/04/20 11:59 Sulfa (Sulfonamide Allergy Rash/Hives Verified 02/04/20 11:59 Antibiotics) wasp Allergy Anaphylaxis Uncoded 02/04/20 11:59 Review of Systems ROS Statement: Those systems with pertinent positive or pertinent negative responses have been documented in the HPI. ROS Other: All systems not noted in ROS Statement are negative. Past Medical History Past Medical History: Atrial Fibrillation, Coronary Artery Disease (CAD), Chest Pain / Angina, Heart Failure, Eye Disorder, GERD/Reflux, Hearing Disorder / Deafness, Hyperlipidemia, Hypertension, Myocardial Infarction (CO), Neurologic Disorder, Osteoarthritis (OA), Sleep Apnea/CPAP/BIPAP, Supraventricular Tachycardia (SVT), Thyroid Disorder Additional Past Medical History / Comment(s): Sherwood's disease, restless leg- states "cannot sit still at night time,aortic aneurysm-Dr. SIMON Christiansen following, was tx. in past for Parkinson's ; right eye doesn't react is dialated,uses cpap Last Myocardial Infarction Date:: 1993 History of Any Multi-Drug Resistant Organisms: None Reported Past Surgical History: Cardiac Ablation, Coronary Bypass/CABG, Heart Catheterization With Stent, Hernia Repair, Orthopedic Surgery Additional Past Surgical History / Comment(s): double bypass, abdominal hernia repair, rt inguinal hernia repair x 3, myles total shoulder replaced, retinal surgery to bilateral eyes,myles cataracts Past Anesthesia/Blood Transfusion Reactions: No Reported Reaction Additional Past Anesthesia/Blood Transfusion Reaction / Comment(s): no known hx blood transfusion Date of Last Stent Placement:: 2015 Past Psychological History: Depression Smoking Status: Never smoker Past Alcohol Use History: None Reported Past Drug Use History: None Reported - Past Family History Sister(s) Family Medical History: Dementia Mother Family Medical History: Diabetes Mellitus, Deep Vein Thrombosis (DVT) Father Family Medical History: AFIB, Coronary Artery Disease (CAD), Myocardial Infarction (CO) General Exam Limitations: no limitations General appearance: alert, in no apparent distress, other (Physical well- developed, well-nourished adult male patient in no acute distress. Vital signs upon presentation are temperature 98.3F, pulse 64, respirations 20, blood pressure 99/57, pulse ox 98% on room air.) Respiratory exam: Present: normal lung sounds bilaterally. Absent: respiratory distress, wheezes, rales, rhonchi, stridor Cardiovascular Exam: Present: regular rate, normal rhythm, normal heart sounds. Absent: systolic murmur, diastolic murmur, rubs, gallop, clicks GI/Abdominal exam: Present: soft, normal bowel sounds. Absent: distended, tenderness, guarding, rebound, rigid Extremities exam: Present: full ROM, normal capillary refill, other (There is 5 cm laceration noted to the dorsal aspect of the left hand. There is active blee ding noted. Skin is otherwise pink, warm, dry. Cap refills less than 3 seconds. Radial pulses 2+). Absent: normal inspection, tenderness, pedal edema, joint swelling, calf tenderness Neurological exam: Present: alert, oriented X3, CN II-XII intact Psychiatric exam: Present: normal affect, normal mood Skin exam: Present: warm, dry, intact, normal color. Absent: rash Course Vital Signs 02/04/20 02/04/20 02/04/20 11:57 12:59 13:59 Temperature 98.3 F 98.4 F Pulse Rate 64 72 Respiratory 20 18 18 Rate Blood Pressure 99/57 95/59 O2 Sat by Pulse 98 98 Oximetry 02/04/20 14:01 Temperature 98.4 F Pulse Rate 72 Respiratory 18 Rate Blood Pressure 95/59 O2 Sat by Pulse 98 Oximetry Procedures - Laceration Laceration #1 Consent Obtained: verbal consent Indication: laceration Site: hand (left) Size (cm): 5 Description: linear Depth: simple, single layer Anesthetic Used: lidocaine 1% Anesthesia Technique: local infiltration Amount (mls): 4 Pre-repair: irrigated extensively Type of Sutures: nylon Size of Sutures: 4-0 Number of Sutures: 5 Technique: simple, interrupted Patient Tolerated Procedure: well, no complications Medical Decision Making - Medical Decision Making 79-year-old male patient presents to the emergency department today for evaluation of left hand laceration. Physical examination did reveal 5 cm laceration with mild bleeding. No surrounding erythema. Wound was cleansed, irrigated, and repaired as documented. INR was checked is 2.5 which is therapeutic for the patient's condition. Laceration occurred around 2130 last evening so we did start Keflex for infection prevention. He is instructed to return in 7 days to have stitches removed. Instructed to follow-up this primary care physician for recheck in 1-2 days. Return parameters discussed in detail. He verbalizes understanding and agrees with this plan. - Lab Data Lab Results 02/04/20 Range/Units 13:11 PT 24.0 H (9.0-12.0) sec INR 2.5 H (<1.2) Disposition Clinical Impression: Laceration of left hand Disposition: HOME SELF-CARE Condition: Good Instructions (If sedation given, give patient instructions): Care For Your Stitches (ED), Laceration (ED) Additional Instructions: Keep wound clean and dry. Cleanse twice daily with warm water and antibacterial soap. Return to the emergency department to have the stitches removed in 7 days. Take antibiotic one pill twice daily. Follow-up with the primary care physician for recheck in 1-2 days. Return to the emergency department for any new, worsening, or concerning symptoms. Prescriptions: Cephalexin [Keflex] 500 mg PO BID #14 cap Is patient prescribed a controlled substance at d/c from ED?: No Referrals: Camacho Coello MD [Primary Care Provider] - 1-2 days Time of Disposition: 13:49
[2020-02-04] MEDS ORDERED: DIPH,PERTUS(ACELL)TETVAC-LF 0.5 ML VIAL IM ONE (13:04)
[2020-02-04] MEDS ORDERED: CEPHALEXIN 500MG STARTER PACK 4 CAP BTL PO STA (13:04)
[2020-02-04 13:37] LABS: INR 2.5 (<1.2)
[2020-02-04 14:01] VITALS: BP 95/59; PULSE 72; RESP 18; TEMP 98.4
== END 2020-02-04 14:09 | disposition home or self-care (01) ==
LOC: EC 11:44
DX: S61.412A Laceration without foreign body of left hand, initial encounter (principal); F32.9 Major depressive disorder, single episode, unspecified; I48.91 Unspecified atrial fibrillation; I25.119 Atherosclerotic heart disease of native coronary artery with unspecified angina pectoris; I11.0 Hypertensive heart disease with heart failure; I50.9 Heart failure, unspecified; I25.2 Old myocardial infarction; M19.90 Unspecified osteoarthritis, unspecified site; G47.30 Sleep apnea, unspecified; E07.9 Disorder of thyroid, unspecified; G25.81 Restless legs syndrome; G20 Parkinson's disease; Z79.890 Hormone replacement therapy; Z79.01 Long term (current) use of anticoagulants; Z79.82 Long term (current) use of aspirin; Z79.899 Other long term (current) drug therapy; Z79.52 Long term (current) use of systemic steroids; Z23 Encounter for immunization; Z88.2 Allergy status to sulfonamides; Z91.030 Bee allergy status; Z99.89 Dependence on other enabling machines and devices; Z95.5 Presence of coronary angioplasty implant and graft; Z95.1 Presence of aortocoronary bypass graft; W23.1XXA Caught, crushed, jammed, or pinched between stationary objects, initial encounter; Y93.89 Activity, other specified; Y92.009 Unspecified place in unspecified non-institutional (private) residence as the place of occurrence of the external cause
CPT/HCPCS: 36415; 85610; 90715; 90471; 12002; 99283; J2001

== ENCOUNTER → 2020-03-23 | Outpatient (CLI) | payer MEDICARE ==
[2020-03-23 09:16] LABS: Basophils # (A) 0.1 k/uL (0-0.2); Basophils % (A) 1 %; Eosinophils # (A) 0.3 k/uL (0-0.7); Eosinophils % (A) 3 %; HCT 43.4 % (39.0-53.0); HGB 13.8 gm/dL (13.0-17.5); Lymphocytes # (A) 3.7 k/uL (1.0-4.8); Lymphocytes % (A) 46 %; MCH 32.6 pg (25.0-35.0); MCHC 31.9 g/dL (31.0-37.0); MCV 102.2 fL (80.0-100.0); Macrocytosis Slight; Mean Platelet Volume 7.1; Monocytes # (A) 0.5 k/uL (0-1.0); Monocytes % (A) 6 %; Neutrophils # (A) 3.3 k/uL (1.3-7.7); Neutrophils % (A) 41 %; Platelet Count 248 k/uL (150-450); RBC 4.25 m/uL (4.30-5.90); RDW 14.1 % (11.5-15.5)
[2020-03-23 16:24] LABS: Hemoglobin A1C 5.9 % (4.0-6.0)
[2020-03-23 16:25] LABS: African American GFR (CKD) 54.6 (60.0-200.0); Albumin 4.9 g/dL (3.80-4.90); Albumin/Globulin Ratio 2.13 (1.60-3.17); Anion Gap 11.4 mmol/L (4.00-12.00); BUN/Creat Ratio 26.43 Ratio (12.00-20.00); Calcium 9.8 mg/dL (8.7-10.3); Carbon Dioxide 24.6 mmol/L (21.6-31.8); Chol/HDL Ratio 4.4; Globulin 2.3 g/dL (1.6-3.3); LDL Cholesterol,Calculated 141.2 mg/dL (0.0-131.0); Non-African American GFR(CKD) 47.1 (60.0-200.0); PSA Annual Screen 0.3 ng/mL (0.0-4.0); Potassium 4.7 mmol/L (3.5-5.5); Total Bilirubin 0.7 mg/dL (0.2-1.2); Total Protein 7.2 g/dL (6.2-8.2); VLDL Calculation 35.8 mg/dL (5.00-40.00)
== END | disposition home or self-care (01) ==
LOC: LABWHC1 08:36
PROVIDERS: ATTEND Nurse Practitioner Adult Health
DX: E03.9 Hypothyroidism, unspecified (principal); E27.1 Primary adrenocortical insufficiency; I48.91 Unspecified atrial fibrillation; E78.5 Hyperlipidemia, unspecified; Z12.5 Encounter for screening for malignant neoplasm of prostate; R73.9 Hyperglycemia, unspecified
CPT/HCPCS: 84439; 84481; 80053; 80061; 82533; 82550; 84443; 85025; 82024; 83036; 36415; G0103

== ENCOUNTER → 2020-06-28 | Outpatient (CLI) | payer MEDICARE ==
--- NOTE | 2020-06-28 12:38 | FL ---
EXAMINATION TYPE: FL barium swallow w video DATE OF EXAM: 06/28/2020 MODIFIED SWALLOW / DEGLUTITION STUDY CLINICAL HISTORY: Dysphagia. TECHNIQUE: Deglutition study is performed utilizing thin liquid barium, honey and nectar thick liqui d barium, barium thick applesauce, and barium coated cracker. 1.17 minutes of fluoro time and 0 imag es obtained. COMPARISON: None. FINDINGS: The oral and pharyngeal phases show satisfactory initiation and propagation with all modali ties tested. Normal mastication is seen with solid modalities tested. There is transient penetratio n with thin liquid barium. No aspiration with any modality tested. No significant pharyngeal residue was appreciated. IMPRESSION: No aspiration observed. Please refer to speech therapist notes for further details if ne cessary.
== END | disposition home or self-care (01) ==
LOC: RADFLMAIN 11:44
PROVIDERS: ATTEND Family Medicine
DX: R13.10 Dysphagia, unspecified (principal)
CPT/HCPCS: 74230

== ENCOUNTER → 2020-07-09 | Outpatient (CLI) | payer MEDICARE ==
--- NOTE | 2020-07-10 07:04 | US ---
EXAMINATION TYPE: US thyroid st tissue head/neck DATE OF EXAM: 07/09/2020 COMPARISON: NONE CLINICAL HISTORY: R13.10 Dysphagia, unspecified. GLAND SIZE: Right Lobe: 3.6 x 1.4 x 1.9 cm Overall Parenchyma: heterogenous Left Lobe: 3.3 x 1.1 x 1.4 cm Overall Parenchyma: heterogeneous Isthmus Thickness: 0.2 cm NODULES RIGHT: # of nodules measured on right: 0 LEFT: # of nodules measured on left: 0 ISTHMUS: # of nodules measured in the isthmus: 0 Bilateral neck scanned, no evidence of lymphadenopathy. IMPRESSION: No sizable thyroid solid or cystic nodules. Heterogeneous tissue can be associated with thyroiditis c orrelate clinically. 2017 ACR TI-RADS LEVEL: TR-RADS 1 - BENIGN: No FNA *Highest TI-RADS level nodule reported
== END | disposition home or self-care (01) ==
LOC: RADUSWWP 16:00
PROVIDERS: ATTEND Family Medicine
DX: R13.10 Dysphagia, unspecified (principal)
CPT/HCPCS: 76536

== ENCOUNTER → 2020-09-24 | Outpatient (CLI) | payer MEDICARE ==
[2020-09-24 15:10] LABS: Basophils # (A) 0.07 X 10*3/uL (0.00-0.10); Basophils % (A) 0.9 %; Eosinophils # (A) 0.27 X 10*3/uL (0.04-0.35); Eosinophils % (A) 3.3 %; HCT 40.7 % (39.6-50.0); HGB 13.1 g/dL (13.0-17.0); Lymphocytes # (A) 3.41 X 10*3/uL (0.90-5.00); Lymphocytes % (A) 42.3 %; MCH 32.8 pg (27.0-32.0); MCHC 32.2 g/dL (32.0-37.0); Mean Platelet Volume 10.9 fL (9.5-12.2); Monocytes # (A) 0.87 X 10*3/uL (0.20-1.00); Monocytes % (A) 10.8 %; Neutrophils # (A) 3.42 X 10*3/uL (1.80-7.70); Neutrophils % (A) 42.5 %; Platelet Count 235 X 10*3/uL (140-440); RBC 3.99 X 10*6/uL (4.40-5.60); RDW 13.4 % (11.5-14.5); WBC 8.06 X 10*3/uL (4.50-10.00)
[2020-09-24 15:59] LABS: Hemoglobin A1C 5.8 % (4.0-6.0)
[2020-09-24 16:24] LABS: African American GFR (CKD) 46.5 (60.0-200.0); Albumin 4.4 g/dL (3.80-4.90); Albumin/Globulin Ratio 1.52 (1.60-3.17); Anion Gap 8.1 mmol/L (4.00-12.00); BUN/Creat Ratio 23.75 Ratio (12.00-20.00); Calcium 9.5 mg/dL (8.7-10.3); Carbon Dioxide 24.9 mmol/L (21.6-31.8); Chol/HDL Ratio 5.5; Globulin 2.9 g/dL (1.6-3.3); LDL Cholesterol,Calculated 119.6 mg/dL (0.0-131.0); Non-African American GFR(CKD) 40.1 (60.0-200.0); PSA Annual Screen 0.3 ng/mL (0.0-4.0); Total Bilirubin 0.6 mg/dL (0.2-1.2); Total Protein 7.3 g/dL (6.2-8.2); VLDL Calculation 42.4 mg/dL (5.00-40.00)
== END | disposition home or self-care (01) ==
LOC: LABWHC1 10:01
PROVIDERS: ATTEND Nurse Practitioner Adult Health
DX: Z12.5 Encounter for screening for malignant neoplasm of prostate (principal); I48.91 Unspecified atrial fibrillation; E78.5 Hyperlipidemia, unspecified; E03.9 Hypothyroidism, unspecified; E27.1 Primary adrenocortical insufficiency; I25.10 Atherosclerotic heart disease of native coronary artery without angina pectoris; R73.9 Hyperglycemia, unspecified
CPT/HCPCS: 84439; 83880; 80061; 80053; 82533; 82550; 84443; 85025; 82024; 83036; 36415; G0103

== ENCOUNTER → 2020-11-26 | Outpatient (CLI) | payer MEDICARE ==
--- NOTE | 2020-11-26 14:38 | CT ---
EXAMINATION TYPE: CT angio chest DATE OF EXAM: 11/26/2020 2:09 PM COMPARISON: Chest CT October 06, 2019 and older CTs HISTORY: Follow up aneurysm. CT DLP: 307.8 mGycm Automated exposure control for dose reduction was used. CONTRAST: CTA scan of the thorax is performed with IV Contrast, patient injected with 100 mL of Isovue 370, ane urysm protocol. 3D reconstructed images are created on an independent workstation and reviewed.. FINDINGS: LUNGS: The lungs remain grossly clear, there is no concerning new parenchymal mass or nodule identifi ed. There is no pleural effusion or pneumothorax seen bilaterally. The tracheobronchial tree is pa tent. MEDIASTINUM: Overlying post-CABG changes with mediastinal clips and sternal wires is redemonstrated. Satisfactory enhancement of central pulmonary arteries. Persistent ascending aortic aneurysm measurin g 5.0 x 4.5 cm at level of main pulmonary artery axial image 25. Mild/moderate calcification along th e aortic valve noted. There is four vessel origins from the aortic arch which is normal variant. No a neurysm extension into the arch or descending aorta. Mild to moderate peripheral plaque along course of the descending aorta. There are no greater than 1 cm hilar or mediastinal lymph nodes. No perica rdial effusion is seen. OTHER: Stable 1.8 cm low dense lesion left hepatic lobe favoring benign thin-walled cyst. There are 2 adjacent nonobstructing left renal calculi midpole level redemonstrated. There is exophytic 3.4 cm thin-walled cyst anteriorly upper pole of the left kidney redemonstrated. IMPRESSION: Stable ascending aortic aneurysm up to 5.0 cm.
== END | disposition home or self-care (01) ==
LOC: RADCTMAIN 12:54
PROVIDERS: ATTEND Internal Medicine Interventional Cardiology
DX: I71.2 Thoracic aortic aneurysm, without rupture (principal)
CPT/HCPCS: 82565; 84520; 71275; 36415; Q9967

== ENCOUNTER → 2021-09-16 | Outpatient (CLI) | payer MEDICARE | END | disposition home or self-care (01) | LOC: LABWHC1 08:26 | PROVIDERS: ATTEND Internal Medicine Interventional Cardiology | DX: R53.83 Other fatigue (principal) | CPT/HCPCS: 36415; 84443 ==

== ENCOUNTER 2021-11-22 11:30 | Day surgery (SDC) | payer MEDICARE ==
[2021-11-19 11:41] VITALS: BMI 27.6
[~2021-11-22 11:30] MED LIST changes: -ACETAMINOPHEN TAB 500 MG TAB PO ONE; -DEXAMETHASONE SOD PHOSPHATE 10 MG/ML 1 ML VIAL IV ONE; -HYDROmorphone 0.5 MG/0.5 ML SYRINGE IVP PRN; +LACTATED RINGERS 1,000 ML IV SCH; +LIDOCAINE 1% (10MG/ML) FOR IV START INTRADERMA PRN; -LIDOCAINE 1% 20 ML VIAL (10MG/ML) FOR IV START INTRADERMA PRN; -MELOXICAM 7.5 MG TAB PO ONE; -MIDAZOLAM (PF) 2 MG/2 ML VIAL IV PRN; -ONDANSETRON 4 MG/2 ML VIAL IVP ONE; -SCOPOLAMINE 1.5MG/72HR PATCH TRANSDERM ONE; -TRANEXAMIC ACID 1,000 MG in SODIUM CHLORIDE 0.9% 100 ML IVPB ONE; -ceFAZolin IN SWFI 2 GM/20 ML SYRINGE IVP ONE
[2021-11-22 12:49] VITALS: TEMP 97.3
[2021-11-22 12:56] LABS: Glucose,Whole Blood 94 mg/dL (70-110)
[2021-11-22] MEDS ORDERED: PROPOFOL 10 MG/ML 20 ML VIAL IV ONE (13:33)
[2021-11-22] MEDS ORDERED: LIDOCAINE 2% INJ 20 MG/ML (2 ML VIAL) ONE (13:33)
--- NOTE | 2021-11-22 13:51 | P.PCN ---
Date of Procedure: 11/22/21 Procedure(s) Performed: BRIEF HISTORY: Patient is a 81-year-old, pleasant, white male scheduled for an upper endoscopy as a part of evaluation of intermittent dysphagia to solids and dry foods for the last 1 year duration. He also has long-standing history of GERD and is currently on omeprazole 20 mg daily.. PROCEDURE PERFORMED: Esophagogastroduodenoscopy with biopsy and dilation. PREOPERATIVE DIAGNOSIS: GERD/intermittent dysphagia to solids. IV sedation per anesthesia. PROCEDURE: After informed consent was obtained, the patient was brought into the endoscopy unit. IV sedation was administered by Anesthesia under continuous monitoring. Initially the Olympus GIF-140 video endoscope was inserted into the mouth. Esophagus intubated without any difficulty. It was gradually advanced into the stomach and duodenum and carefully examined. The bulb and the second part of the duodenum appeared normal. The scope at this time was withdrawn to the stomach, adequately insufflated with air, and upon careful examination, mucosa of the antrum, body, cardia and the fundus appeared normal. The scope was then withdrawn into the esophagus. The GE junction was located at 39 cm from the incisors. Small sliding type hiatal hernia noted. There was a distal esophageal early stricture identified just proximal to the GE junction which was dilated using 18-20 mm TTS balloon in a sequential fashion for 30 seconds. There was a short segment of Roca's esophagus and a 5 mm proximal to the GE junction which was biopsied. 2 linear erosions in the distal esophagus consistent with LA grade B reflux esophagitis. Rest of esophagus appeared normal and the patient tolerated the procedure well. IMPRESSION: 1. 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 2. 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 3. Small hiatal hernia. RECOMMENDATIONS: The findings of this examination were discussed with the patient as well as his family.. He was advised to follow with the biopsy results. Continue with omeprazole 20 mg daily and follow antireflux measures.
[2021-11-22 13:59] VITALS: PULSE 62
[2021-11-22 14:14] VITALS: BP 99/49; RESP 15
== END 2021-11-22 14:33 | disposition home or self-care (01) ==
LOC: ORWHC2ENDO 11:30
PROVIDERS: ATTEND Internal Medicine Gastroenterology
DX: K22.2 Esophageal obstruction (principal); K22.10 Ulcer of esophagus without bleeding; K21.00 Gastro-esophageal reflux disease with esophagitis, without bleeding; K44.9 Diaphragmatic hernia without obstruction or gangrene; Z88.2 Allergy status to sulfonamides; I25.2 Old myocardial infarction; Z95.5 Presence of coronary angioplasty implant and graft; I11.0 Hypertensive heart disease with heart failure; I50.9 Heart failure, unspecified; E78.5 Hyperlipidemia, unspecified; G47.33 Obstructive sleep apnea (adult) (pediatric); E07.9 Disorder of thyroid, unspecified; I71.4 Abdominal aortic aneurysm, without rupture; Z95.1 Presence of aortocoronary bypass graft; F32.9 Major depressive disorder, single episode, unspecified; G20 Parkinson's disease; Z79.890 Hormone replacement therapy; Z79.899 Other long term (current) drug therapy; Z79.891 Long term (current) use of opiate analgesic
CPT/HCPCS: 88305; 43239; 43249; J2704; J2001; C1726

== ENCOUNTER 2021-12-17 16:37 | Inpatient (IN) | payer MEDICARE ==
[~2021-12-17 16:37] MED LIST changes: +IV FLUID CONTINUATION 900 ML IV ONE; -LACTATED RINGERS 1,000 ML IV SCH; -LIDOCAINE 1% (10MG/ML) FOR IV START INTRADERMA PRN
[2021-12-17] MEDS ORDERED: SODIUM CHLORIDE 0.9% 500 ML 500 ML IV STA (17:22)
--- NOTE | 2021-12-17 17:26 | ED ---
General Adult HPI - General Chief complaint: Dizziness Stated complaint: Dizzy, pcp sent Time Seen by Provider: 12/17/21 16:50 Source: patient, RN notes reviewed, old records reviewed Mode of arrival: ambulatory Limitations: no limitations - History of Present Illness Initial comments: This is an 81-year-old male presents emergency department because he has had near syncopal episodes. Patient states the first was on Thursday one was yesterday and one was again this morning. Patient states he feels like his been a passout and he sits down and relaxes and then the symptoms seemed to resolve. Patient denies any headache patient denies any numbness weakness. Patient denies any chest pain difficulty breathing shortness of breath per patient denies any recent fever chills or cough. Patient denies abdominal pain patient with any nausea vomiting diarrhea. Patient denies any dysuria hematuria urinary frequency. Patient states he believes he is hydrated enough because he drinks quite a bit of water. 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 - Related Data Home Medications Medication Instructions Recorded Confirmed Levothyroxine Sodium [Synthroid] 25 mcg PO SUWE 11/17/13 12/17/21 Warfarin [Coumadin] 7.5 mg PO FR@209911/17/13 12/17/21 Warfarin [Coumadin] 3.75 mg PO SUMOTUWETHSA@209905/20/18 12/17/21 FLUoxetine HCL [PROzac] 20 mg PO DAILY 11/24/19 12/17/21 Levothyroxine Sodium [Synthroid] 50 mcg PO MOTUTHFRSA 11/24/19 12/17/21 rOPINIRole HCL [Requip] 5 mg PO HS 11/24/19 12/17/21 Hydrocortisone [Cortef] 40 mg PO DAILY 11/18/21 12/17/21 Metoprolol Tartrate [Lopressor] 25 mg PO DAILY 11/18/21 12/17/21 Omeprazole 20 mg PO DAILY 11/19/21 12/17/21 Calcium Carbonate [Calcium] 600 mg PO DAILY 12/17/21 12/17/21 Cholecalciferol [Vitamin D3 (125 125 mcg PO DAILY 12/17/21 12/17/21 Mcg = 5000 Iu)] Fludrocortisone [Florinef] 0.1 mg PO THFRSA 12/17/21 12/17/21 Rosuvastatin Calcium 5 mg PO DAILY 12/17/21 12/17/21 Allergies Allergy/AdvReac Type Severity Reaction Status Date / Time bee pollen [Bee Pollen] Allergy Anaphylaxis Verified 12/17/21 19:25 Sulfa (Sulfonamide Allergy Rash/Hives Verified 12/17/21 19:25 Antibiotics) wasp Allergy Anaphylaxis Uncoded 12/17/21 16:49 Review of Systems ROS Statement: Those systems with pertinent positive or pertinent negative responses have been documented in the HPI. ROS Other: All systems not noted in ROS Statement are negative. Past Medical History Past Medical History: Atrial Fibrillation, Coronary Artery Disease (CAD), Chest Pain / Angina, Heart Failure, Eye Disorder, GERD/Reflux, Hearing Disorder / Deafness, Hyperlipidemia, Hypertension, Myocardial Infarction ([place]), Neurologic Disorder, Osteoarthritis (OA), Sleep Apnea/CPAP/BIPAP, Supraventricular Tachycardia (SVT), Thyroid Disorder Additional Past Medical History / Comment(s): Gridley's disease, RLS., aortic aneurysm-Dr. SIMON Christiansen following., tx. in past for Parkinson's ; right eye doesn't react (dilated).,uses cpap machine., states difficulty swallowing. Last Myocardial Infarction Date:: unknown History of Any Multi-Drug Resistant Organisms: None Reported Past Surgical History: Cardiac Ablation, Coronary Bypass/CABG, Heart Catheterization With Stent, Hernia Repair, Orthopedic Surgery Additional Past Surgical History / Comment(s): double CABG 1994., abdominal hernia repair, rt inguinal hernia repair x 3, myles total shoulder replaced, retinal surgery bilateral eyes, myles cataracts, total hip, state hx of 3 cardiac stents. Past Anesthesia/Blood Transfusion Reactions: No Reported Reaction Additional Past Anesthesia/Blood Transfusion Reaction / Comment(s): . Date of Last Stent Placement:: 2015 Past Psychological History: Depression Smoking Status: Never smoker Past Alcohol Use History: None Reported Past Drug Use History: None Reported - Past Family History Sister(s) Family Medical History: Dementia Mother Family Medical History: Diabetes Mellitus, Deep Vein Thrombosis (DVT) Father Family Medical History: AFIB, Coronary Artery Disease (CAD), Myocardial Infarction ([place]) General Exam - General Exam Comments Initial Comments: GENERAL: Patient is well-developed and well-nourished. Patient is nontoxic and well- hydrated and is in no acute distress. ENT: Neck is soft and supple. No significant lymphadenopathy is noted. Oropharynx is clear. Moist mucous membranes. Neck has full range of motion without eliciting any pain. EYES: The sclera were anicteric and conjunctiva were pink and moist. Extraocular movements were intact and pupils were equal round and reactive to light. Eyelids were unremarkable. PULMONARY: Unlabored respirations. Good breath sounds bilaterally. No audible rales rhonchi or wheezing was noted. CARDIOVASCULAR: There is a regular rate and rhythm without any murmurs gallops or rubs. ABDOMEN: Soft and nontender with normal bowel sounds. No palpable organomegaly was noted. There is no palpable pulsatile mass. SKIN: Skin is clear with no lesions or rashes and otherwise unremarkable. NEUROLOGIC: Patient is alert and oriented x3. Cranial nerves II through XII are grossly intact. Motor and sensory are also intact. Normal speech, volume and content. Symmetrical smile. MUSCULOSKELETAL: Normal extremities with adequate strength and full range of motion. LYMPHATICS: No significant lymphadenopathy is noted PSYCHIATRIC: Normal psychiatric evaluation. Limitations: no limitations Course Vital Signs 12/17/21 12/17/21 12/17/21 16:45 17:40 17:46 Temperature 97.9 F Pulse Rate 55 L 51 L Pulse Rate [ 29 L Shear Scrapman ] Respiratory 18 18 Rate Blood Pressure 123/78 126/77 Blood Pressure 124/72 [Right Arm Sitting] Blood Pressure 117/70 [Right Arm Supine] O2 Sat by Pulse 99 96 Oximetry 12/17/21 12/17/21 12/17/21 18:15 18:19 18:21 Temperature Pulse Rate 30 L 36 L 43 L Pulse Rate [ Shear Scrapman ] Respiratory 18 18 18 Rate Blood Pressure 123/80 121/90 Blood Pressure [Right Arm Sitting] Blood Pressure [Right Arm Supine] O2 Sat by Pulse 98 96 97 Oximetry 12/17/21 12/17/21 12/17/21 18:29 18:44 19:20 Temperature Pulse Rate 47 L 50 L 67 Pulse Rate [ Shear Scrapman ] Respiratory 18 18 18 Rate Blood Pressure 120/74 119/86 109/61 Blood Pressure [Right Arm Sitting] Blood Pressure [Right Arm Supine] O2 Sat by Pulse 98 97 98 Oximetry 12/17/21 19:35 Temperature Pulse Rate 70 Pulse Rate [ Shear Scrapman ] Respiratory 15 Rate Blood Pressure 143/57 Blood Pressure [Right Arm Sitting] Blood Pressure [Right Arm Supine] O2 Sat by Pulse 98 Oximetry Medical Decision Making - Medical Decision Making EKG shows sinus bradycardia 52 bpm UT interval 297 QRS is 164 QT interval 590 QTC is 508. Patient's EKG shows a right bundle branch block is no significant ST segment elevation Patient's EKG shows sinus bradycardia at 27 bpm QRS is 137 QT intervals 593 QTC is 426. Patient was given atropine and heart rate came up into the 50s momentarily and then eventually went back down into the 20s and 30s. I started the patient on dopamine and then I called certified ophthalmic medical technician spoke with Dr. Pacheco he agreed with the dopamine at this time. Once the patient was on dopamine for about 40 minutes she was having quite a few runs of PVCs in excess of 5 consecutive beats. An EKG was again repeated and showed atrial fibrillation with multiple PVCs at 83 bpm QRS is 168 QT interval is 465 QTC interval was 505. I spoke with Dr. Pacheco again and he agreed with my decision to bring down the dopamine to 2.5. I spoke with Dr. Chadwick he agreed to admit the patient admitted the patient I wrote admitting orders and I consult to cardiology patient will be going to the ICU I spoke with Dr. aZpien he did not feel for a slowly cardiac patient he did not need to be consulted - Lab Data Result diagrams: 12/17/21 17:40 12/17/21 17:40 Lab Results 12/17/21 12/17/21 12/17/21 Range/Units 17:40 17:40 17:40 WBC 5.6 (3.8-10.6) k/uL RBC 3.72 L (4.30-5.90) m/uL Hgb 12.5 L (13.0-17.5) gm/dL Hct 36.8 L (39.0-53.0) % MCV 98.9 (80.0-100.0) fL MCH 33.5 (25.0-35.0) pg MCHC 33.9 (31.0-37.0) g/dL RDW 13.2 (11.5-15.5) % Plt Count 226 (150-450) k/uL MPV 8.6 Neutrophils % 66 % Lymphocytes % 25 % Monocytes % 5 % Eosinophils % 1 % Basophils % 1 % Neutrophils # 3.7 (1.3-7.7) k/uL Lymphocytes # 1.4 (1.0-4.8) k/uL Monocytes # 0.3 (0-1.0) k/uL Eosinophils # 0.1 (0-0.7) k/uL Basophils # 0.0 (0-0.2) k/uL PT 26.4 H (9.0-12.0) sec INR 2.6 H (<1.2) APTT 36.1 H (22.0-30.0) sec Sodium 136 L (137-145) mmol/L Potassium 4.9 (3.5-5.1) mmol/L Chloride 104 (98-107) mmol/L Carbon Dioxide 20 L (22-30) mmol/L Anion Gap 12 mmol/L BUN 32 H (9-20) mg/dL Creatinine 1.52 H (0.66-1.25) mg/dL Est GFR (CKD-EPI)AfAm 49 (>60 ml/min/1.73 sqM) Est GFR (CKD-EPI)NonAf 43 (>60 ml/min/1.73 sqM) Glucose 104 H (74-99) mg/dL Calcium 9.2 (8.4-10.2) mg/dL Magnesium 2.2 (1.6-2.3) mg/dL Total Bilirubin 0.5 (0.2-1.3) mg/dL AST 27 (17-59) U/L ALT 24 (4-49) U/L Alkaline Phosphatase 63 (38-126) U/L Troponin I (0.000-0.034) ng/mL Total Protein 7.2 (6.3-8.2) g/dL Albumin 4.5 (3.5-5.0) g/dL TSH 2.480 (0.465-4.680) mIU/L 12/17/21 Range/Units 17:40 WBC (3.8-10.6) k/uL RBC (4.30-5.90) m/uL Hgb (13.0-17.5) gm/dL Hct (39.0-53.0) % MCV (80.0-100.0) fL MCH (25.0-35.0) pg MCHC (31.0-37.0) g/dL RDW (11.5-15.5) % Plt Count (150-450) k/uL MPV Neutrophils % % Lymphocytes % % Monocytes % % Eosinophils % % Basophils % % Neutrophils # (1.3-7.7) k/uL Lymphocytes # (1.0-4.8) k/uL Monocytes # (0-1.0) k/uL Eosinophils # (0-0.7) k/uL Basophils # (0-0.2) k/uL PT (9.0-12.0) sec INR (<1.2) APTT (22.0-30.0) sec Sodium (137-145) mmol/L Potassium (3.5-5.1) mmol/L Chloride (98-107) mmol/L Carbon Dioxide (22-30) mmol/L Anion Gap mmol/L BUN (9-20) mg/dL Creatinine (0.66-1.25) mg/dL Est GFR (CKD-EPI)AfAm (>60 ml/min/1.73 sqM) Est GFR (CKD-EPI)NonAf (>60 ml/min/1.73 sqM) Glucose (74-99) mg/dL Calcium (8.4-10.2) mg/dL Magnesium (1.6-2.3) mg/dL Total Bilirubin (0.2-1.3) mg/dL AST (17-59) U/L ALT (4-49) U/L Alkaline Phosphatase (38-126) U/L Troponin I 0.016 (0.000-0.034) ng/mL Total Protein (6.3-8.2) g/dL Albumin (3.5-5.0) g/dL TSH (0.465-4.680) mIU/L Critical Care Time Critical Care Time: Yes Total Critical Care Time: 35 Disposition Clinical Impression: Near syncope, Bradycardia Disposition: ADMITTED IP TO THIS [facility] Referrals: Camacho Coello MD [Primary Care Provider] - 1-2 days Time of Disposition: 19:41
[2021-12-17 17:55] LABS: Basophils % (A) 1 %; Eosinophils # (A) 0.1 k/uL (0-0.7); Eosinophils % (A) 1 %; HCT 36.8 % (39.0-53.0); HGB 12.5 gm/dL (13.0-17.5); Lymphocytes # (A) 1.4 k/uL (1.0-4.8); Lymphocytes % (A) 25 %; MCH 33.5 pg (25.0-35.0); MCHC 33.9 g/dL (31.0-37.0); MCV 98.9 fL (80.0-100.0); Mean Platelet Volume 8.6; Monocytes # (A) 0.3 k/uL (0-1.0); Monocytes % (A) 5 %; Neutrophils # (A) 3.7 k/uL (1.3-7.7); Neutrophils % (A) 66 %; Platelet Count 226 k/uL (150-450); RBC 3.72 m/uL (4.30-5.90); RDW 13.2 % (11.5-15.5); WBC 5.6 k/uL (3.8-10.6)
[2021-12-17 18:01] LABS: ALT 24 U/L (4-49); AST 27 U/L (17-59); African American GFR (CKD) 49 (>60 ml/min/1.73 sqM); Albumin 4.5 g/dL (3.5-5.0); Alkaline Phosphatase 63 U/L (38-126); Anion Gap 12 mmol/L; Blood Urea Nitrogen 32 mg/dL (9-20); Calcium 9.2 mg/dL (8.4-10.2); Carbon Dioxide 20 mmol/L (22-30); Chloride 104 mmol/L (98-107); Glucose 104 mg/dL (74-99); Magnesium 2.2 mg/dL (1.6-2.3); Non-African American GFR(CKD) 43 (>60 ml/min/1.73 sqM); Potassium 4.9 mmol/L (3.5-5.1); Sodium 136 mmol/L (137-145); Total Bilirubin 0.5 mg/dL (0.2-1.3); Total Protein 7.2 g/dL (6.3-8.2)
[2021-12-17] MEDS ORDERED: ATROPINE SULFATE 0.1 MG/ML 10ML SYRINGE IV STA ×2 (18:17→18:18)
[2021-12-17] MEDS ORDERED: DOPamine DRIP 800 MG in DEXTROSE/WATER 1 250ML.BAG IV ONE (18:26)
[2021-12-17 18:29] LABS: INR 2.6 (<1.2); Partial Thromboplastin Time 36.1 sec (22.0-30.0); Prothrombin Time 26.4 sec (9.0-12.0)
[2021-12-17] MEDS ORDERED: NALOXONE 0.4 MG/ML 1 ML VIAL IV PRN (19:53)
[2021-12-17 19:57] LABS: Appearance,Urine Clear (Clear); Bilirubin,Urine Negative (Negative); Blood,Urine Negative (Negative); Color,Urine Light Yellow; Glucose,Urine (UA) Negative (Negative); Ketones,Urine Negative (Negative); Leukocyte Esterase,Urine Negative (Negative); Nitrite,Urine Negative (Negative); PH, Urine 5.5 (5.0-8.0); Protein,Urine Negative (Negative); Specific Gravity,Urine 1.011 (1.001-1.035); Urobilinogen,Urine <2.0 mg/dL (<2.0)
--- NOTE | 2021-12-17 19:57 | XR ---
EXAMINATION TYPE: XR chest 1V portable DATE OF EXAM: 12/17/2021 6:54 PM COMPARISON: Chest radiographs from 20/06/2019 TECHNIQUE: XR chest 1V portable Frontal view of the chest. CLINICAL INDICATION:Male, 81 years old with history of bradycardia; FINDINGS: Lungs/Pleura: Low lung volumes are present. There is no evidence of pleural effusion, focal consolida tion, or pneumothorax. Pulmonary vascularity: Unremarkable. Heart/mediastinum: Cardiomediastinal silhouette is enlarged and stable. Musculoskeletal: No acute osseous pathology. Midline sternotomy wires are noted. Bilateral shoulder a rthroplasty changes. Hardware appears intact. IMPRESSION: Low lung volumes with diffuse haziness the lungs which may represent atelectasis versus pulmonary vas cular congestion correlate serum BNP.
[2021-12-17 21:20] LABS: Glucose,Whole Blood 99 mg/dL (70-110)
[2021-12-17] MEDS ORDERED: SODIUM CHLORIDE 0.9% 1,000 ML IV SCH (22:15)
[2021-12-17] MEDS ORDERED: NOREPINEPHRIN 4 MG-0.9% NS PMX 4 MG/250 ML ML IV ONE (23:15)
[2021-12-17] MEDS: NOREPINEPHRINE 4 MG in SODIUM CHLORIDE 0.9% 250 ML IV SCH (23:25)
[2021-12-18] MEDS ORDERED: LIDOCAINE 1% INJ 10MG/ML (30 ML VIAL-PF) SQ ONE (00:07)
[2021-12-18] MEDS ORDERED: ACETAMINOPHEN TAB 325 MG TAB PO PRN (00:52)
--- NOTE | 2021-12-18 01:10 | P.HPIM ---
History of Present Illness H&P Date: 12/17/21 Chief Complaint: near syncope 81 year old male with afib on coumadin , addissons disease patient comes in for evaluation due to repeated episodes of near syncope for the past 3 days with episodes of dizziness and lightheadedness that improves with sitting down, he thought that he might be dehydrated , but drinking plenty of water was not helping, this has been going on for three days, without any chest pain or trouble breathing, no headaches, or focal neuro deficits. denies any recent viral illness, he claims to be compliant with his meds. and no recent changes has been made. while in the ED, he was found to be breadycardiac , improved initially with atropin , then per discussion with cardiology he was started on dopamine , which later adjusted the dose down due to frequent PVCs , cardiology wanted a trial of dopamine before they would consider transvenous pacing. electrolytes were unremarkable except for DANIELITO. different EKGs showed AV block 1st degree and 2nd degree with 2:1 patient was eventually admitted to the ICU , but due to persistent bradycardiac , he was taken to [facility] for transvenous pacing Review of Systems Pertinent positives as noted in HPI. All other systems were reviewed and are negative Past Medical History Past Medical History: Atrial Fibrillation, Coronary Artery Disease (CAD), Chest Pain / Angina, Heart Failure, Eye Disorder, GERD/Reflux, Hearing Disorder / Deafness, Hyperlipidemia, Hypertension, Myocardial Infarction ([place]), Neurologic Disorder, Osteoarthritis (OA), Sleep Apnea/CPAP/BIPAP, Supraventricular Tachycardia (SVT), Thyroid Disorder Additional Past Medical History / Comment(s): Keaau's disease, RLS., aortic aneurysm-Dr. SIMON Christiansen following., tx. in past for Parkinson's ; right eye doesn't react (dilated).,uses cpap machine., states difficulty swallowing. Last Myocardial Infarction Date:: unknown History of Any Multi-Drug Resistant Organisms: None Reported Past Surgical History: Cardiac Ablation, Coronary Bypass/CABG, Heart Cath eterization With Stent, Hernia Repair, Orthopedic Surgery Additional Past Surgical History / Comment(s): double CABG 1994., abdominal hernia repair, rt inguinal hernia repair x 3, myles total shoulder replaced, retinal surgery bilateral eyes, myles cataracts, total hip, state hx of 3 cardiac stents. Past Anesthesia/Blood Transfusion Reactions: No Reported Reaction Additional Past Anesthesia/Blood Transfusion Reaction / Comment(s): . Date of Last Stent Placement:: 2015 Past Psychological History: Depression Smoking Status: Never smoker Past Alcohol Use History: None Reported Past Drug Use History: None Reported - Past Family History Sister(s) Family Medical History: Dementia Mother Family Medical History: Diabetes Mellitus, Deep Vein Thrombosis (DVT) Father Family Medical History: AFIB, Coronary Artery Disease (CAD), Myocardial Infarction ([place]) Medications and Allergies Home Medications Medication Instructions Recorded Confirmed Type Levothyroxine Sodium [Synthroid] 25 mcg PO SUWE 11/17/13 12/17/21 History Warfarin [Coumadin] 7.5 mg PO FR@209911/17/13 12/17/21 History Warfarin [Coumadin] 3.75 mg PO SUMOTUWETHSA@209905/20/18 12/17/21 History FLUoxetine HCL [PROzac] 20 mg PO DAILY 11/24/19 12/17/21 History Levothyroxine Sodium [Synthroid] 50 mcg PO MOTUTHFRSA 11/24/19 12/17/21 History rOPINIRole HCL [Requip] 5 mg PO HS 11/24/19 12/17/21 History Hydrocortisone [Cortef] 40 mg PO DAILY 11/18/21 12/17/21 History Metoprolol Tartrate [Lopressor] 25 mg PO DAILY 11/18/21 12/17/21 History Omeprazole 20 mg PO DAILY 11/19/21 12/17/21 History Calcium Carbonate [Calcium] 600 mg PO DAILY 12/17/21 12/17/21 History Cholecalciferol [Vitamin D3 (125 125 mcg PO DAILY 12/17/21 12/17/21 History Mcg = 5000 Iu)] Fludrocortisone [Florinef] 0.1 mg PO THFRSA 12/17/21 12/17/21 History Rosuvastatin Calcium 5 mg PO DAILY 12/17/21 12/17/21 History Allergies Allergy/AdvReac Type Severity Reaction Status Date / Time bee pollen [Bee Pollen] Allergy Anaphylaxis Verified 12/17/21 19:25 Sulfa (Sulfonamide Allergy Rash/Hives Verified 12/17/21 19:25 Antibiotics) wasp Allergy Anaphylaxis Uncoded 12/17/21 16:49 Physical Exam Vitals: Vital Signs Temp Pulse Pulse Resp BP BP BP 12/17/21 19:35 70 15 143/57 12/17/21 19:20 67 18 109/61 12/17/21 18:44 50 L 18 119/86 12/17/21 18:29 47 L 18 120/74 12/17/21 18:21 43 L 18 12/17/21 18:19 36 L 18 121/90 12/17/21 18:15 30 L 18 123/80 12/17/21 17:46 29 L 124/72 117/70 12/17/21 17:40 51 L 18 126/77 12/17/21 16:45 97.9 F 55 L 18 123/78 Pulse Ox 12/17/21 19:35 98 12/17/21 19:20 98 12/17/21 18:44 97 12/17/21 18:29 98 12/17/21 18:21 97 12/17/21 18:19 96 12/17/21 18:15 98 12/17/21 17:46 12/17/21 17:40 96 12/17/21 16:45 99 Intake and Output 12/17/21 12/17/21 12/17/21 06:59 14:59 22:59 Intake Total 7.314 Balance 7.314 Intake: Intake, IV Titration 7.314 Amount DOPamine DRIP 800 mg In 7.314 Dextrose/Water 1 250ml. bag @ 5 MCG/KG/MIN 7.314 mls/hr IV .Q24H ONE Rx#: [id number] Other: Weight 78.018 kg Constitutional: No acute distress, Eyes: Anicteric sclerae, moist conjunctiva, Pupils equal round reactive to light ENMT: NC/AT Oropharynx clear, no erythema, or exudates Neck: Supple, no masses, or JVD No carotid bruits No thyromegaly Lungs: Clear to auscultation Clear to percussion Normal respiratory effort, no accessory muscle use Cardiovascular: Heart irregular bradycardia No murmurs, gallops, or rubs No peripheral edema Abdominal: Soft Nontender, no guarding, rebound or rigidity Abdomen moving with respiration Normoactive bowel sounds No hepatomegaly, No splenomegaly No palpable mass No abdominal wall hernia noted Skin: Normal temperature, tone, texture, turgor No induration No subcutaneous nodules No rash, lesions No ulcers Extremities: No digital cyanosis No clubbing Pedal pulses intact and symmetrical Radial pulses intact and symmetrical No calf tenderness Psychiatric: Alert and oriented to person, place and time Appropriate affect fair judgement Neuro Muscles Strength 5/5 in all 4 extremities Sensation to light touch grossly present throughout Cranial nerves II-XII grossly intact Lymphatics: no palpable cervical or supraclavicular lymph nodes Results CBC & Chem 7: 12/17/21 17:40 12/17/21 17:40 Labs: Abnormal Lab Results - Last 24 Hours (Table) 12/17/21 12/17/21 12/17/21 Range/Units 17:40 17:40 17:40 RBC 3.72 L (4.30-5.90) m/uL Hgb 12.5 L (13.0-17.5) gm/dL Hct 36.8 L (39.0-53.0) % PT 26.4 H (9.0-12.0) sec INR 2.6 H (<1.2) APTT 36.1 H (22.0-30.0) sec Sodium 136 L (137-145) mmol/L Carbon Dioxide 20 L (22-30) mmol/L BUN 32 H (9-20) mg/dL Creatinine 1.52 H (0.66-1.25) mg/dL Glucose 104 H (74-99) mg/dL Assessment and Plan Assessment: bradycardia EKG showing variable degree AV block trial of dopamin , however persistent bradycardia cardiology activated [facility] for transvenous pacing environmental monitoring specialist cardiology eval monitor electrolyte patient on high dose requip , which can cause bradycardia, will hold ICU admission and care DANIELITO hold nephrotoxic meds IVF hydration with normal saline monitor renal function and urine output mild anemia denies GI bleeding continue to monitor chronic conditions addisson's disease, resume hydrocortison, florinef afib on coumadin, continue dosing by pharmacy metoprolol on hold due to bradycardia RLS , on high dose requip , will hold due to bradycardia fll code DVT PPX on coumadin for afib
[2021-12-18 04:08] LABS: Basophils # (A) 0.1 k/uL (0-0.2); Basophils % (A) 1 %; Eosinophils # (A) 0.1 k/uL (0-0.7); Eosinophils % (A) 1 %; HCT 36.2 % (39.0-53.0); HGB 12.2 gm/dL (13.0-17.5); Lymphocytes # (A) 3.2 k/uL (1.0-4.8); Lymphocytes % (A) 30 %; MCH 33.1 pg (25.0-35.0); MCHC 33.5 g/dL (31.0-37.0); MCV 98.8 fL (80.0-100.0); Mean Platelet Volume 8.6; Monocytes # (A) 0.7 k/uL (0-1.0); Monocytes % (A) 6 %; Neutrophils # (A) 6.4 k/uL (1.3-7.7); Neutrophils % (A) 60 %; Platelet Count 242 k/uL (150-450); RBC 3.67 m/uL (4.30-5.90); RDW 13.2 % (11.5-15.5); WBC 10.7 k/uL (3.8-10.6)
[2021-12-18 04:10] LABS: INR 2.5 (<1.2); Prothrombin Time 24.7 sec (9.0-12.0)
[2021-12-18] MEDS ORDERED: LEVOTHYROXINE 25 MCG TAB PO SCH (06:30)
[2021-12-18] MEDS: PANTOPRAZOLE 40 MG TABLET PO SCH (06:35)
--- NOTE | 2021-12-18 08:39 | CC ---
CARDIAC CATHETERIZATION REPORT INDICATIONS: Symptomatic high-grade AV block. PROCEDURE NOTE: After obtaining informed consent, temporary transvenous pacemaker was performed via the right femoral vein. Right femoral venous access was obtained using modified Seldinger technique. Local and IV sedation was obtained, total sedation time was 8 minutes. Under fluoroscopic guidance, the temporary transvenous pacemaker wire was floated into the right ventricle where the balloon was deflated. Adequate pacing and sensing thresholds were obtained. The patient remained stable hemodynamically and the pacemaker was anchored and the patient will be admitted to the ICU. I will stop the Levophed and dopamine that he is on and we will obtain a 2D echo in the morning to assess his LV function and decide on permanent pacemaker placement. MMODL / IJN: [id number] /
[2021-12-18] MEDS: HYDROCORTISONE 20 MG TAB PO SCH (09:06)
[2021-12-18] MEDS: FLUoxetine HCL 20 MG CAP PO SCH (09:06)
[2021-12-18] MEDS: ATORVASTATIN 10 MG TAB PO SCH (09:06)
[2021-12-18] MEDS ORDERED: diphenhydrAMINE 2% CREAM 28.4 GM TUBE TOPICAL PRN (09:44)
[2021-12-18] MEDS ORDERED: TRIAMCINOLONE 0.1% CREAM 80 GM TUBE TOPICAL PRN (09:44)
[2021-12-18] MEDS ORDERED: hydrOXYzine HCL 25 MG TAB PO PRN (09:45)
--- NOTE | 2021-12-18 09:56 | CDI ---
Documentation Clarification Form Date: 12/18/2021 09:53:30 AM From: Libertad Christiansen RN, CCDS Email: [email or web address] Admit Date: 12/17/2021 07:53:00 PM Patient Name: Khari Morales Visit Number: [id number] Discharge Date: ATTENTION: The Clinical Documentation Specialists (CDI) and [facility] Coding Staff appreciate your assistance in clarifying documentation. Please respond to the clarification below the line at the bottom and electronically sign. The CDI & [facility] Coding staff will review the response and follow-up if needed. Please note: Queries are made part of the Legal Health Record. If you have any questions, please contact the author of this message via ITS. Dr. Celina Chadwick Your patient is receiving IV Levophed and IV Dopamine. Please clarify what condition/diagnosis is being treated. History/Risk Factors: Grant's, HTN, CAD, Afib, angina, CHF, hyperlipidemia, [place], OA, sleep apnea, thyroid do and GERD Clinical indicators: dizziness, feeling of passing out 12/17 HR down into the 30's, BP low of 61/37 12/17 EKG: sinus bradycardia with 1st degree AV block 12/17 Labs: Cr 1.52 12/17 H&P: "patient was eventually admitted to the ICU due to persistent bradycardia." Treatment: IV Dopamine, IV Levophed, 0.9 NS 1L IV bolus, temporary pacemaker insertion. What diagnosis are you treating with the above treatment? [ ] Cardiogenic shock [ ] No additional diagnosis [ ] Other, please specify [ ] Unable to determine as documented in initial H&P symptomatic bradycardia MTDD
--- NOTE | 2021-12-18 13:41 | P.PN ---
Subjective Patient seen and examined at bedside. Patient denied chest pain or shortness of breath at this time. Patient is currently resting comfortably and has no complaints. Patient is scheduled for pacemaker likely tomorrow. Objective - Vital Signs Vital signs: Vital Signs Temp 98.2 F 12/18/21 12:00 Pulse 67 12/18/21 13:00 Resp 15 12/18/21 13:00 BP 104/62 12/18/21 12:00 Pulse Ox 95 12/18/21 13:00 FiO2 Intake & Output 12/17/21 12/18/21 12/18/21 18:59 06:59 18:59 Intake Total 247.347 67.394 Output Total 150 250 Balance 97.347 -182.606 Weight 78.018 kg 79.4 kg Intake: IV 200 Sodium Chloride 0.9% 1, 200 000 ml @ 100 mls/hr IV . Q10H [facility] Rx#:[id number] Intake, IV Titration 47.347 67.394 Amount DOPamine DRIP 800 mg In 25.721 Dextrose/Water 1 250ml. bag @ 5 MCG/KG/MIN 7.314 mls/hr IV .Q24H [facility] Rx#: [id number] Norepinephrine 4 mg In 21.626 67.394 Sodium Chloride 0.9% 250 ml @ 0.03 MCG/KG/MIN 9. 053 mls/hr IV .Q24H [facility] Rx#:[id number] Output: Urine 150 250 Other: # Voids 0 2 - Exam General: [non toxic], [no distress], [appears at stated age] Derm: [warm], [dry] Head: [atraumatic], [normocephalic], [symmetric] Eyes: [EOMI], [no lid lag], [anicteric sclera] Mouth: [no lip lesion], [mucus membranes moist] Cardiovascular: [Bradycardic], [no murmur], [positive posterior tibial pulse bilateral], Lungs: [CTA bilateral], [no rhonchi, no rales] , [no accessory muscle use] Abdominal: [soft], [ nontender to palpation], [no guarding], [no appreciable organomegaly] Ext: [no gross muscle atrophy], [no edema], [no contractures] Neuro: [ CN II-XI grossly intact], [no focal neuro deficits] Psych: [Alert], [oriented], [appropriate affect] - Labs CBC & Chem 7: 12/18/21 03:26 12/18/21 03:26 Labs: Abnormal Lab Results - Last 24 Hours (Table) 12/17/21 12/17/21 12/17/21 Range/Units 17:40 17:40 17:40 WBC (3.8-10.6) k/uL RBC 3.72 L (4.30-5.90) m/uL Hgb 12.5 L (13.0-17.5) gm/dL Hct 36.8 L (39.0-53.0) % PT 26.4 H (9.0-12.0) sec INR 2.6 H (<1.2) APTT 36.1 H (22.0-30.0) sec Sodium 136 L (137-145) mmol/L Carbon Dioxide 20 L (22-30) mmol/L BUN 32 H (9-20) mg/dL Creatinine 1.52 H (0.66-1.25) mg/dL Glucose 104 H (74-99) mg/dL 12/18/21 12/18/21 12/18/21 Range/Units 03:26 03:26 03:26 WBC 10.7 H (3.8-10.6) k/uL RBC 3.67 L (4.30-5.90) m/uL Hgb 12.2 L (13.0-17.5) gm/dL Hct 36.2 L (39.0-53.0) % PT 24.7 H (9.0-12.0) sec INR 2.5 H (<1.2) APTT (22.0-30.0) sec Sodium (137-145) mmol/L Carbon Dioxide 21 L (22-30) mmol/L BUN 31 H (9-20) mg/dL Creatinine 1.59 H (0.66-1.25) mg/dL Glucose (74-99) mg/dL Assessment and Plan Assessment: 1. Bradycardia EKG showing variable degree AV block trial of dopamin , however persistent bradycardia cardiology activated catheter builder for transvenous pacing Patient is scheduled to have a pacemaker placement tomorrow hall monitor cardiology following monitor electrolyte patient on high dose requip , which can cause bradycardia, will hold ICU admission and care 2. DANIELITO hold nephrotoxic meds IVF hydration with normal saline monitor renal function and urine output 3. mild anemia denies GI bleeding continue to monitor HB stable 4. chronic conditions addisson's disease, resume hydrocortison, florinef afib on coumadin, continue dosing by pharmacy metoprolol on hold due to bradycardia RLS , on high dose requip , will hold due to bradycardia Full code DVT PPX on coumadin for afib
[2021-12-18] MEDS: SODIUM CHLORIDE 0.9% 1,000 ML IV SCH ×2 (20:39→20:46)
[2021-12-18] MEDS ORDERED: WARFARIN 7.5 MG TAB PO ONE (21:00)
--- NOTE | 2021-12-18 23:12 | CONS ---
CONSULTATION CHIEF COMPLAINT: Syncope. HISTORY OF PRESENT ILLNESS: This is an 81-year-old gentleman with history of paroxysmal atrial fibrillation, coronary artery disease status post CABG, history of [place] disease, who presented to hospital having had multiple episodes of near-syncope over the past 3 days. He describes it as dizziness and lightheadedness. He initially thought he was dehydrated and was drinking plenty of fluids. As his symptoms persisted, came to the emergency room. In the ER, he was found to be bradycardic. The ER physician told me that he was in sinus bradycardia with a heart rate of 30 beats per minute. He received atropine, was started on dopamine and was subsequently admitted to ICU from where I received a phone call stating that the patient was having significant pauses, feelings of impending doom and hypotension. He developed episodes of high-grade AV block, pauses and episodes of atrial fibrillation. Due to this, I advised the patient to undergo emergent temporary transvenous pacemaker. At the time of my evaluation, the patient was comfortable at rest, hemodynamically stable and free of significant symptoms. He was on dopamine with a lot of ventricular ectopy, but was maintaining his blood pressures. PAST MEDICAL HISTORY: , Jarad disease, history of aortic aneurysm, parkinsonism. MEDICATIONS: At home included: 1. Levothyroxine. 2. Coumadin. 3. Prozac. 4. Requip. 5. . 6. Lopressor. 7. Omeprazole. 8. Calcium. 9. Florinef. 10.Crestor. ALLERGIES: The patient is allergic to sulfa. FAMILY HISTORY: Negative for premature coronary artery disease. SOCIAL HISTORY: Negative for smoking, EtOH abuse or drug abuse. REVIEW OF SYSTEMS: A review of systems has been performed and pertinents are as documented. PAST SURGICAL HISTORY: Significant for coronary artery disease status post CABG, hernia repair, retinal surgery, bilateral cataract surgery, total hip replacement, prior cardiac stenting. PHYSICAL EXAMINATION: GENERAL: The patient is comfortable at rest. VITAL SIGNS: Afebrile. Vital signs are stable. CHEST: Exam reveals good air entry bilaterally. HEART: Exam reveals first and second heart sounds and a systolic murmur at the apex. ABDOMEN: Soft. EXTREMITIES: Did not reveal any edema. Peripheral pulses are felt. LABORATORY DATA: Showed a hemoglobin of 12.5, white cell count is normal. INR is 2.6, potassium is 4.9, creatinine is 1.5. ASSESSMENT AND PLAN: 1. Syncope secondary to high-grade atrioventricular block. 2. Paroxysmal atrial fibrillation. 3. Coronary artery disease, status post coronary artery bypass graft. PLAN: The patient will undergo emergent temporary transvenous pacemaker. He had been explained of risks, benefits and alternatives. I will obtain a 2D echo to document his LV function and the patient should have a permanent pacemaker done over the next 24 to 48 hours. MMANNETTA / RAVINN: [id number] /
--- NOTE | 2021-12-18 23:12 | PN ---
PROGRESS NOTE SUBJECTIVE: An 81-year-old gentleman who was admitted to hospital with syncope secondary to high- grade AV block, had a temporary trial of his pacemaker. This morning he is doing well and is free of symptoms. His pacemaker is functioning appropriately and he is pacing at the rate set and he is still using his pacemaker and needs a permanent pacemaker. Hopefully this can be done tomorrow. We will obtain a 2D echo today. OBJECTIVE: GENERAL: He is comfortable at rest. VITAL SIGNS: Stable. CHEST: Reveals diminished air entry at the bases. HEART: Reveals first and second heart sounds. Systolic murmur at the apex. ABDOMEN: Soft. EXTREMITIES: Did not reveal any edema. Peripheral pulses are felt. LABORATORY STUDIES: Labs show a hemoglobin of 12.2, platelet count is 240. INR is 2.5. Potassium is 4, creatinine is 1.5. ASSESSMENT: 1. High-grade AV block, status post temporary transvenous pacemaker. 2. Coronary artery disease, status post coronary artery bypass grafting. 3. History of paroxysmal atrial fibrillation. PLAN: TSH is normal. I will obtain a 2D echo. Troponin was negative. We will hold the Coumadin at this time, permanent pacemaker over the next 24 to 48 hours. MMODL / IJN: [id number] /
[2021-12-19] MEDS: NOREPINEPHRINE 4 MG in SODIUM CHLORIDE 0.9% 250 ML IV SCH ×2 (00:04→23:29)
[2021-12-19] MEDS ORDERED: VANCOMYCIN 2,000 MG in SODIUM CHLORIDE 0.9% 500 ML 500 ML IVPB ONE (04:00)
[2021-12-19 04:16] LABS: HGB 12.1 gm/dL (13.0-17.5); MCH 32.4 pg (25.0-35.0); MCHC 32.8 g/dL (31.0-37.0); MCV 98.7 fL (80.0-100.0); Mean Platelet Volume 8.3; Platelet Count 201 k/uL (150-450); RBC 3.75 m/uL (4.30-5.90); RDW 12.6 % (11.5-15.5); WBC 7.2 k/uL (3.8-10.6)
[2021-12-19 04:26] LABS: Prothrombin Time 20.3 sec (9.0-12.0)
[2021-12-19 04:38] LABS: Calcium 8.8 mg/dL (8.4-10.2)
[2021-12-19 05:15] LABS: Glucose,Whole Blood 85 mg/dL (70-110)
[2021-12-19] MEDS: LEVOTHYROXINE 25 MCG TAB PO SCH (05:26)
[2021-12-19] MEDS ORDERED: IV FLUID CONTINUATION 400 ML IV ONE (06:38)
[2021-12-19] MEDS ORDERED: IOPAMIDOL-370 50ML BTL INJ ONE (07:00)
[2021-12-19] MEDS ORDERED: ceFAZolin 1 GM in SODIUM CHLORIDE 0.9% IRRIG BTL 250 ML IRRIGATION PRN (07:00)
[2021-12-19] MEDS ORDERED: fentaNYL (PF) 50 MCG/ML 2 ML AMP ONE ×2 (07:19→20:41)
[2021-12-19] MEDS ORDERED: LIDOCAINE 1% INJ 10MG/ML (30 ML VIAL-PF) SQ ONE ×3 (07:22→20:36)
[2021-12-19] MEDS ORDERED: fentaNYL (PF) 50 MCG/ML 2 ML AMP IV ONE (07:32)
[2021-12-19] MEDS ORDERED: ACETAMINOPHEN IV (For NPO) 1,000 MG in EMPTY BAG 1 BAG IVPB ONE ×2 (08:23→21:32)
[2021-12-19] MEDS ORDERED: ACETAMINOPHEN TAB 325 MG TAB PO PRN ×2 (08:23→21:32)
--- NOTE | 2021-12-19 08:26 | P.PCN ---
Preoperative Diagnosis: Patient underwent EP procedure under conscious sedation/moderate sedation, monitoring of the level of consciousness and physiologic parameters including but not limited to vital signs and oxygenation. Patient tolerated the procedure well without any acute complications. Start time: 722 Stop time: 8:24
--- NOTE | 2021-12-19 08:30 | P.EPPROC ---
- EP Procedure Note Electrophysiology Procedure Note: Diagnosis Symptomatic bradycardia secondary to complete heart block with recurrent presyncope and syncope Twelve-lead EKG shows alternating bundle-branch block on different EKGs History of coronary artery bypass grafting Mild ischemic cardio myopathy ejection fraction 45% with septal hypokinesis Procedure Dual-chamber pacemaker implantation Details Patient was brought to the EP lab in a fasting state. Written informed consent was obtained prior to the procedure. Conscious sedation provided. IV antibiotics administered. Local anesthesia administered. A 4 cm incision made in the pectoral area. Subfascial pocket made. Venous accesses obtained Venous sheaths placed. Leads placed in the right heart Atrial lead position the right atrial appendage. Metronic active fix lead model #5076, 52 cm in length P waves 1.3 mV, pacing impedance 418 ohms and pacing threshold 0.8 V at 0.4 ms RV lead position in the RV apex. Long lead used,(ICD), single coil Medtronic model #6935, 58 cm in length, active fix No R waves, pacing impedance 400 ohms and pacing threshold 0.8 V at 0.4 ms f emoral test negative Device miter operator: Medtronic dual-chamber pacemaker RUDY Dual-chamber pacemaker device connected to the leads and placed in the subfascial pocket Patient tolerated the procedure well without acute complications Pacemaker programming: DDDR 60-130 bpm
--- NOTE | 2021-12-19 08:31 | P.PCN ---
Preoperative Diagnosis: Following dual-chamber pacemaker implantation, the TVP was removed under fluoroscopy Pacemaker leads are stable Sheath was removed and hemostasis a short Patient tolerated the procedure well without any acute complications
[2021-12-19] MEDS: SODIUM CHLORIDE 0.9% 1,000 ML IV SCH ×2 (09:08)
[2021-12-19] MEDS: HYDROCORTISONE 20 MG TAB PO SCH (09:08)
[2021-12-19] MEDS: PANTOPRAZOLE 40 MG TABLET PO SCH (09:09)
[2021-12-19] MEDS: FLUDROCORTISONE 0.1 MG TAB PO SCH (09:09)
[2021-12-19] MEDS: ATORVASTATIN 10 MG TAB PO SCH (09:09)
[2021-12-19] MEDS: FLUoxetine HCL 20 MG CAP PO SCH (09:09)
--- NOTE | 2021-12-19 09:38 | XR ---
EXAMINATION TYPE: XR chest 1V DATE OF EXAM: 12/19/2021 COMPARISON: Prior chest x-ray 12/17/2021 HISTORY: Congestive heart failure TECHNIQUE: Single frontal view of the chest is obtained. FINDINGS: The patient is post median sternotomy. There is a lead present coursing from the lower por tion of the exam into the right ventricle. No evident pneumothorax or pleural effusion. Cardiomediast inal silhouette is stable. Postop changes are noted to the shoulders. No evident pneumothorax or pleu ral effusion. Aorta is dense. IMPRESSION: Transvenous pacemaker in place as described. Improved lung volumes, aeration.
--- NOTE | 2021-12-19 10:06 | XR ---
EXAMINATION TYPE: XR chest 1V portable DATE OF EXAM: 12/19/2021 COMPARISON: Chest x-ray 12/19/2021 HISTORY: Lead placement check TECHNIQUE: Single frontal view of the chest is obtained. FINDINGS: There is been interval placement of a generator in the left pectoral region, there are shaina ds in right atrium and ventricle, right atrial lead courses caudally or transversely rather than in a cephalad direction. Patient is post median sternotomy. Lung volumes are low. No evident pneumothorax . Patchy basilar density may represent atelectasis. Postop changes in the shoulders. IMPRESSION: No evident complication status post lead placement as described
--- NOTE | 2021-12-19 11:45 | CA ---
Transthoracic Echo Report Name: Khari Morales Age: 81 Gender: M : 1940 Exam Date: 12/18/2021 09:08 Exam Location: [facility] Ht (in): 65 Wt (lb): 175 Ordering Physician: Anna Ceja Attending/Referring Phys: [id number], [employer] Coordinator Anca Dinero RDCS Procedure CPT: Indications: LV function Cardiac Hx: Technical Quality: Contrast 1: Total Dose (mL): Contrast 2: Total Dose (mL): MEASUREMENTS (Male / Female) Normal Values 2D ECHO LV Diastolic Diameter PLAX 3.7 cm 4.2 - 5.9 / 3.9 - 5.3 cm LV Systolic Diameter PLAX 3.0 cm IVS Diastolic Thickness 1.2 cm 0.6 - 1.0 / 0.6 - 0.9 cm LVPW Diastolic Thickness 1.1 cm 0.6 - 1.0 / 0.6 - 0.9 cm LV Relative Wall Thickness 0.6 RV Internal Dim ED PLAX 2.9 cm LA Volume 71.6 cm??? 18 - 58 / 22 - 52 cm??? M-MODE Aortic Root Diameter MM 3.1 cm LA Systolic Diameter MM 4.8 cm LA Ao Ratio MM 1.6 AV Cusp Separation MM 1.1 cm DOPPLER AV Peak Velocity 268.9 cm/s AV Peak Gradient 28.9 mmHg AV Mean Velocity 183.0 cm/s AV Mean Gradient 14.6 mmHg AV Velocity Time Integral 52.9 cm LVOT Peak Velocity 108.9 cm/s LVOT Peak Gradient 4.7 mmHg MV Area PHT 4.5 cm??? Mitral E Point Velocity 73.5 cm/s Mitral A Point Velocity 52.1 cm/s Mitral E to A Ratio 1.4 MV Deceleration Time 170.0 ms TR Peak Velocity 291.2 cm/s TR Peak Gradient 33.9 mmHg Right Ventricular Systolic Press 37.9 mmHg FINDINGS Left Ventricle Mildly increased left ventricular wall thickness. Reduced global left ventricular systolic function. Abnormal (paradoxical) septal motion consistent with postoperative state. Left ventricular ejection fraction is estimated at 40-45 %. Right Ventricle Normal right ventricular size and function. Mild pulmonary hypertension. Right Atrium Right atrium not well visualized. Left Atrium Moderately increased left atrial volume. Mitral Valve Mild mitral annular calcification. Mild mitral regurgitation. Aortic Valve Moderate aortic stenosis with a peak gradient of 29 mmHg and a mean gradient of 15 mmHg. Tricuspid Valve Mild tricuspid regurgitation. Pulmonic Valve Trace pulmonic regurgitation. Pericardium No pericardial effusion. Aorta Normal size aortic root and proximal ascending aorta. CONCLUSIONS Left ventricular ejection fraction 40-45% Mild increased left ventricular wall thickness Paradoxical septal wall motion consistent with postoperative state RVSP 37 Mild mitral regurgitation Moderately dilated left atrium Moderate aortic stenosis No pericardial effusion Previewed by: Dr. Andi Avalos DO (Electronically Signed) Final Date: 19 December 2021 11:44
--- NOTE | 2021-12-19 12:27 | P.PN ---
Subjective Progress Note Date: 12/19/21 Patient is doing well today. Received his dual-chamber pacemaker. Resting comfortably, heart rates are well controlled. Blood pressure stable. Gen: Resting comfortably in bed in no apparent distress HEENT: normocephalic, atraumatic, good hearing acuity, moist mucous membranes Resp: good air exchange, breathing comfortably with no accessory muscle use CVS: good distal perfusion x 4, GI: soft, NTTP, ND : no SPT, no CVAT, carranza catheter not present MSK: no pitting edema, no clubbing Neuro: non-focal, moving all extremities Assessment/plan: 1. Bradycardia EKG showing variable degree AV block trial of dopamin , however persistent bradycardia cardiology activated animal laboratory helper for transvenous pacing Patient is status post dual-chamber pacemaker placement 12/19 secured entrance monitor cardiology following monitor electrolyte patient on high dose requip , which can cause bradycardia, will hold ICU admission and care, okay to be transferred to [facility] for medical perspective pending clearance from cardiology 2. DANIELITO , improving hold nephrotoxic meds IVF hydration with normal saline monitor renal function and urine output 3. mild anemia denies GI bleeding continue to monitor HB stable 4. chronic conditions addisson's disease, resume hydrocortison, florinef afib on coumadin, continue dosing by pharmacy metoprolol on hold due to bradycardia RLS , on high dose requip , can consider resuming tomorrow Full code DVT PPX on coumadin for afib Objective - Vital Signs Vital signs: Vital Signs Temp 98.1 F 12/19/21 12:00 Pulse 63 12/19/21 12:00 Resp 12 12/19/21 12:00 BP 96/57 12/19/21 12:00 Pulse Ox 96 12/19/21 12:00 FiO2 Intake & Output 12/18/21 12/19/21 12/19/21 18:59 06:59 18:59 Intake Total 67.394 1451 Output Total 750 2225 Balance -682.606 -774 Weight 82.1 kg Intake: IV 1251 Sodium Chloride 0.9% 1, 600 000 ml @ 50 mls/hr IV . Q20H [facility] Rx#:[id number] Vancomycin 2,000 mg In 501 Sodium Chloride 0.9% 500 ml 500 ml @ 167 mls/hr IVPB ONCE ONE Rx#: [id number] Intake, IV Titration 67.394 Amount Norepinephrine 4 mg In 67.394 Sodium Chloride 0.9% 250 ml @ 0.03 MCG/KG/MIN 9. 053 mls/hr IV .Q24H [facility] Rx#:[id number] Oral 200 Output: Urine 750 2225 Other: Voiding Method Urinal Urinal # Voids 2 1 # Bowel Movements 1 - Labs CBC & Chem 7: 12/19/21 03:31 12/19/21 03:31 Labs: Abnormal Lab Results - Last 24 Hours (Table) 12/19/21 12/19/21 12/19/21 Range/Units 03:31 03:31 03:31 RBC 3.75 L (4.30-5.90) m/uL Hgb 12.1 L (13.0-17.5) gm/dL Hct 37.0 L (39.0-53.0) % PT 20.3 H (9.0-12.0) sec INR 2.0 H (<1.2) Carbon Dioxide 21 L (22-30) mmol/L BUN 22 H (9-20) mg/dL Creatinine 1.38 H (0.66-1.25) mg/dL
[2021-12-19] MEDS ORDERED: SODIUM CHLORIDE 0.65% NASAL SPRAY 44 ML BTL NASAL PRN (14:11)
--- NOTE | 2021-12-19 18:47 | XR ---
EXAMINATION TYPE: XR chest 1V portable DATE OF EXAM: 12/19/2021 COMPARISON: Chest x-ray 12/19/2021 at earlier time HISTORY: Pacemaker placement TECHNIQUE: Single frontal view of the chest is obtained. FINDINGS: The right atrial lead appears somewhat more upturned on the current exam although patient is rotated, there are differences in technique. Right ventricular lead appears somewhat more en face. No evident pneumothorax. No pleural effusion. Patient is post median sternotomy. Bilateral shoulder arthroplasties have been performed. IMPRESSION: Interval change in appearance of the right atrial lead.
[2021-12-19] MEDS ORDERED: VANCOMYCIN 1,000 MG in SODIUM CHLORIDE 0.9% 250 ML IVPB STA (19:12)
[2021-12-19] MEDS ORDERED: ceFAZolin 1,000 MG in SODIUM CHLORIDE 0.9% IRRIG BTL 250 ML IRRIGATION ONE (19:14)
--- NOTE | 2021-12-19 19:15 | P.EPPROC ---
- EP Procedure Note Electrophysiology Procedure Note: Diagnosis Episode of syncope while sitting History of ischemic cardio myopathy Procedure Diagnostic EP study Final diagnosis Very easily inducible ventricular fibrillation, reproducible finding Spontaneous termination with conversion to sinus rhythm Details Patient was brought to the EP lab in a fasting state. Written informed consent was obtained prior to the procedure. Left pectoral area was prepped and draped as a protocol Venous sheaths were placed in the right femoral veins Diagnostic catheters placed in the high right atrium His bundle area right ventricle Protecta and RV apex Sinus cycle length 941 ms, TX interval 202 ms, QRS 178 ms in the right bundle branch block pattern and QT interval 451 ms AH 103 and HV 56 ms Sinus node recovery times at 600, 504 100 ms were 1179, 980 and 1246 ms Course morning to sinus recovery times were mildly prolonged AV node Wenckebach block abnormal at 410 ms VA Wenckebach block greater than 700 ms Burst stimulation was performed from the RVOT Access to ablation was performed from the RVOT With double extrastimuli repeated long runs of PMVT were induced Retroflex extrastimuli sustained ventricular tachycardia was induced This is associated with syncope This spontaneously terminated and the patient regained consciousness This is similar to his clinical story when he had a brief with complete loss of consciousness while sitting and then regained consciousness after a few minutes Catheters removed. Sheaths were removed Vascular closure device applied Plan Dual-chamber ICD implant, abnormal sinus node function, abnormal AV node function and easily inducible ventricular fibrillation associated with syncope
--- NOTE | 2021-12-19 19:17 | P.PN ---
Progress Note - Text Patient underwent a diagnostic EP study which revealed easily inducible ventricular fibrillation with syncope This was repeated finding and he was spontaneously terminate each time Plan dual-chamber ICD implantation prior to discharge Daily Hibiclens bath No EKG patches over the left pectoral area Watch for any thrombophlebitis Discussed with the patient and his
[2021-12-19] MEDS ORDERED: SODIUM CHLORIDE 0.9% 250 ML IV ONE (19:36)
[2021-12-19] MEDS: MIDAZOLAM 2 MG/2 ML VIAL IV ONE ×2 (20:18→21:14)
[2021-12-19] MEDS: fentaNYL (PF) 50 MCG/ML 2 ML AMP IV ONE ×2 (20:44→21:12)
[2021-12-19] MEDS ORDERED: WARFARIN 7.5 MG TAB PO ONE (21:00)
--- NOTE | 2021-12-19 21:31 | P.EPPROC ---
- EP Procedure Note Electrophysiology Procedure Note: Transvenous temporary pacing procedure Indication for the procedure: Severe underlying bradycardia, pacemaker lead dislodgment, underlying complete heart block Patient was brought to the EP lab in a fasting state. Written informed consent was obtained prior to the procedure. The right groin was prepped and draped as a protocol. A 6-[place] sheath was placed in the right femoral vein. Via this, a temporary pacing catheter was placed in the right ventricle. Thresholds were interrogated. Temporary pacing was performed through the rest of the procedure. At the end of the entire procedure, the TVP was removed. The sheath was removed and hemostasis was assured. Patient tolerated the procedure well without any acute complications. Procedure performed Transvenous temporary pacing Procedure #2 RV lead repositioning. RV lead dislodgment, significant dislodgment out of the RV apex close to the tricuspid valve The left pectoral area was prepped and draped as a protocol. 1% lidocaine as local anesthesia IV antibiotics administered Incision was opened The pocket was opened The RV lead was disconnected from the generator and freed from the pectoral muscle This lead was repositioned in the RV septum Excellent stable position, good current of injury excellent thresholds Pacing impedance 589 ohms and pacing threshold 0.75 V at 0.4 ms The lead was secured to the pectoralis muscle It is connected to the pacemaker generator Pacemaker generator was interrogated Atrial lead function was normal and stable The wound was closed in 3 layers and dressed per protocol Tyrx pouch placed in the pocket
[2021-12-20] MEDS: SODIUM CHLORIDE 0.9% 1,000 ML IV SCH ×2 (02:00→02:03)
--- NOTE | 2021-12-20 04:58 | XR ---
EXAMINATION TYPE: XR chest 1V portable DATE OF EXAM: 12/20/2021 COMPARISON: Yesterday HISTORY: Check lead placement TECHNIQUE: FINDINGS: Heart appears slightly enlarged. There is left axillary pacemaker with the lead tips in the right ventricle and right atrium. No heart failure seen. No pleural effusion. There are sternal wire s. There is bilateral shoulder prosthesis. IMPRESSION: No active cardiopulmonary disease. No change compared to yesterday.
[2021-12-20] MEDS: LEVOTHYROXINE 25 MCG TAB PO SCH (05:48)
[2021-12-20] MEDS: PANTOPRAZOLE 40 MG TABLET PO SCH (08:11)
[2021-12-20] MEDS: FLUDROCORTISONE 0.1 MG TAB PO SCH (08:11)
[2021-12-20] MEDS: ATORVASTATIN 10 MG TAB PO SCH (08:11)
[2021-12-20] MEDS: FLUoxetine HCL 20 MG CAP PO SCH (08:11)
[2021-12-20] MEDS: HYDROCORTISONE 20 MG TAB PO SCH (08:11)
--- NOTE | 2021-12-20 08:44 | P.PN ---
Subjective Progress Note Date: 12/20/21 Patient is examined today resting comfortably in the bedside chair in no signs of acute distress. He denies chest pain or increased shortness of breath. His left arm remains in a sling. Patient is dual paced on the monitor, with a heart rate is 61. Patient has a known history of proximal atrial fibrillation warfarin has been restarted, INR today is 2. Vital signs are stable. Chest x- ray shows left axillary pacemaker with the lead tips in the right ventricle and right atrium with no acute cardiopulmonary disease. Will restart Lopressor 25 mg twice a day. Pacer will be interrogated, once it has been interrogated patient is clear for discharge today from a cardiac standpoint. Objective - Vital Signs Vital signs: Vital Signs Temp 98.2 F 12/19/21 16:00 Pulse 60 12/20/21 04:00 Resp 14 12/20/21 04:00 BP 109/80 12/20/21 04:00 Pulse Ox 97 12/20/21 04:00 FiO2 Intake & Output 12/19/21 12/20/21 12/20/21 18:59 06:59 18:59 Intake Total 50 1060 Output Total 1225 Balance 50 -165 Weight 83.1 kg Intake: IV 520 0.9 120 Intake, IV Titration 50 Amount ceFAZolin 2 gm In Sodium 50 Chloride 0.9% 50 ml @ 100 mls/hr IVPB Q6H [facility] Rx#: [id number] Oral 540 Output: Urine 1225 Other: Voiding Method Urinal Urinal - Exam PHYSICAL EXAM: VITAL SIGNS: Reviewed. GENERAL: Well-developed in no acute distress. HEENT: Head is normocephalic. Pupils are equal, round. Sclerae anicteric. Mucous membranes of the mouth are moist. NECK: Supple. No JVD or thyromegaly RESPIRATORY: Respirations even and unlabored. Lungs diminished to auscultation bilaterally. CARDIO: Dual paced, No murmur or gallops. EXTREMITIES: Normal range of motion. No clubbing or cyanosis. Peripheral p ulses intact. Negative for bilateral lower extremity edema, left arm in sling NEURO: Orientated to person, time, mood is appropriate - Labs CBC & Chem 7: 12/19/21 03:31 12/19/21 03:31 Assessment and Plan Assessment: Bradycardia status post permanent pacemaker Acute kidney injury Coronary artery disease status post CABG proximal atrial fibrillation Plan: Continue with current cardiac medications Continue to titrate warfarin per pharmacy Start Lopressor 25 mg twice a day Chest x-ray reviewed Pacer will be checked today and patient is cleared for discharge once completed Patient will follow-up in the office in one week with Dr. SIMON Christiansen The above impression and plan of care have been discussed and directed by the signing physician. Jackie Spivey, nurse practitioner, acting as scribe for signing physician.
[2021-12-20 09:04] LABS: INR 2.1 (<1.2); Prothrombin Time 21.2 sec (9.0-12.0)
[2021-12-20 12:24] VITALS: BP 125/77; PULSE 60; RESP 15; TEMP 98.2
--- NOTE | 2021-12-20 12:30 | P.DS ---
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 While in the ED, he was found to be breadycardiac , improved initially with atropine , then per discussion with cardiology he was started on dopamine, which later adjusted the dose down due to frequent PVCs , cardiology wanted a trial of dopamine before they would consider transvenous pacing. Electrolytes were unremarkable except for DANIELITO. Different EKGs showed AV block 1st degree and 2nd degree with 2:1. Patient was eventually admitted to the ICU , but due to persistent bradycardiac , he was taken to the clinical laboratory technologist for transvenous pacing. Following the temporary transvenous pacer, patient was subsequently taken for dual chamber pacemaker placement on 12/19. During his hospitalization his metoprolol and requip were held, but restarted on discharge. He also had an DANIELITO, but this resolved with IVF. Pt was discharged home with Cardiology and PCP f/u. Metoprolol was increased on discharge to 25mg BID. I spent 38 minutes coordinating this complex discharge on 12/20. Gen: Resting comfortably in bed in no apparent distress HEENT: normocephalic, atraumatic, good hearing acuity, moist mucous membranes Resp: good air exchange, breathing comfortably with no accessory muscle use CVS: good distal perfusion x 4, GI: soft, NTTP, ND : no SPT, no CVAT, carranza catheter not present MSK: no pitting edema, no clubbing Neuro: non-focal, moving all extremities Patient Condition at Discharge: Good Plan - Discharge Summary Discharge Rx Participant: No New Discharge Prescriptions: New Metoprolol Tartrate 25 mg PO BID #60 tab Cephalexin [Keflex] 500 mg PO ONCE 1 Days #1 cap Continue Warfarin [Coumadin] 7.5 mg PO FR@2100 Levothyroxine Sodium [Synthroid] 25 mcg PO SUWE Warfarin [Coumadin] 3.75 mg PO SUMOTUWETHSA@2099 rOPINIRole HCL [Requip] 5 mg PO HS FLUoxetine HCL [PROzac] 20 mg PO DAILY Levothyroxine Sodium [Synthroid] 50 mcg PO MOTUTHFRSA Rosuvastatin Calcium 5 mg PO DAILY Calcium Carbonate [Calcium] 600 mg PO DAILY Fludrocortisone [Florinef] 0.1 mg PO THFRSA Hydrocortisone [Cortef] 40 mg PO DAILY Omeprazole 20 mg PO DAILY Cholecalciferol [Vitamin D3 (125 Mcg = 5000 Iu)] 125 mcg PO DAILY Discontinued Metoprolol Tartrate [Lopressor] 25 mg PO DAILY Discharge Medication List Levothyroxine Sodium [Synthroid] 25 mcg PO SUWE 11/17/13 [History] Warfarin [Coumadin] 7.5 mg PO FR@209911/17/13 [History] Warfarin [Coumadin] 3.75 mg PO SUMOTUWETHSA@209905/20/18 [History] FLUoxetine HCL [PROzac] 20 mg PO DAILY 11/24/19 [History] Levothyroxine Sodium [Synthroid] 50 mcg PO MOTUTHFRSA 11/24/19 [History] rOPINIRole HCL [Requip] 5 mg PO HS 11/24/19 [History] Hydrocortisone [Cortef] 40 mg PO DAILY 11/18/21 [History] Omeprazole 20 mg PO DAILY 11/19/21 [History] Calcium Carbonate [Calcium] 600 mg PO DAILY 12/17/21 [History] Cholecalciferol [Vitamin D3 (125 Mcg = 5000 Iu)] 125 mcg PO DAILY 12/17/21 [History] Fludrocortisone [Florinef] 0.1 mg PO THFRSA 12/17/21 [History] Rosuvastatin Calcium 5 mg PO DAILY 12/17/21 [History] Cephalexin [Keflex] 500 mg PO ONCE 1 Days #1 cap 12/20/21 [Rx] Metoprolol Tartrate 25 mg PO BID #60 tab 12/20/21 [Rx] Follow up Appointment(s)/Referral(s): Mera Christiansen MD [STAFF PHYSICIAN] - 1 Week (Office to call with appointment date and time.) Camacho Coello MD [Primary Care Provider] - 12/27/21 3:15 pm Patient Instructions/Handouts: Bradycardia (DC), Pacemaker (DC)
[2021-12-20] MEDS ORDERED: WARFARIN 7.5 MG TAB PO ONE (18:00)
== END 2021-12-20 14:05 | disposition home or self-care (01) | DRG 243 ==
LOC: EC 16:37 → 2SICU 19:53
PROVIDERS: ADMIT Internal Medicine; ATTEND Internal Medicine
PROC: 3E033XZ Introduction of Vasopressor into Peripheral Vein, Percutaneous Approach (ICD-10-PCS; 2021-12-17)
PROC: 02HK3JZ Insertion of Pacemaker Lead into Right Ventricle, Percutaneous Approach (ICD-10-PCS; 2021-12-18)
PROC: 5A1223Z Performance of Cardiac Pacing, Continuous (ICD-10-PCS; 2021-12-18)
PROC: 02H63JZ Insertion of Pacemaker Lead into Right Atrium, Percutaneous Approach (ICD-10-PCS; 2021-12-19)
PROC: 02PA3MZ Removal of Cardiac Lead from Heart, Percutaneous Approach (ICD-10-PCS; 2021-12-19)
PROC: 02HK3JZ Insertion of Pacemaker Lead into Right Ventricle, Percutaneous Approach (ICD-10-PCS; 2021-12-19)
PROC: 0JH606Z Insertion of Pacemaker, Dual Chamber into Chest Subcutaneous Tissue and Fascia, Open Approach (ICD-10-PCS; principal; 2021-12-19 07:00)
DX: I44.0 Atrioventricular block, first degree (principal); E27.1 Primary adrenocortical insufficiency; N17.9 Acute kidney failure, unspecified; I11.0 Hypertensive heart disease with heart failure; I50.9 Heart failure, unspecified; G20 Parkinson's disease; G25.81 Restless legs syndrome; D64.9 Anemia, unspecified; I71.9 Aortic aneurysm of unspecified site, without rupture; I45.10 Unspecified right bundle-branch block; I49.3 Ventricular premature depolarization; I48.0 Paroxysmal atrial fibrillation; I25.10 Atherosclerotic heart disease of native coronary artery without angina pectoris; E78.5 Hyperlipidemia, unspecified; H91.90 Unspecified hearing loss, unspecified ear; R13.10 Dysphagia, unspecified; K21.9 Gastro-esophageal reflux disease without esophagitis; G47.30 Sleep apnea, unspecified; Z28.310 Unvaccinated for COVID-19; Z79.01 Long term (current) use of anticoagulants; Z95.1 Presence of aortocoronary bypass graft; Z95.5 Presence of coronary angioplasty implant and graft; Z79.899 Other long term (current) drug therapy; I25.2 Old myocardial infarction; Z88.2 Allergy status to sulfonamides; Z91.030 Bee allergy status; Z79.890 Hormone replacement therapy
CPT/HCPCS: 33208; 33210; 33215; 36415; 71045; 80048; 80053; 81003; 83735; 84443; 84484; 85025; 85027; 85610; 85730; 93005; 93306; 96361; 96365; 96366; 96375; 99291

== ENCOUNTER → 2022-01-03 | Outpatient (CLI) | payer MEDICARE ==
[2022-01-03 18:09] LABS: ALT 24 U/L (10-49); AST 26 U/L (14-35); African American GFR (CKD) 61.6 (60.0-200.0); Albumin 4.4 g/dL (3.8-4.9); Albumin/Globulin Ratio 1.66 (1.60-3.17); Alkaline Phosphatase 72 U/L (41-126); BUN/Creat Ratio 16.59 Ratio (12.00-20.00); Blood Urea Nitrogen 20.9 mg/dL (9.0-27.0); Calcium 9.1 mg/dL (8.7-10.3); Carbon Dioxide 24.8 mmol/L (20.0-27.5); Chloride 102 mmol/L (96-109); Chol/HDL Ratio 3.98 Ratio; Globulin 2.6 g/dL (1.6-3.3); Glucose 80 mg/dL (70-110); LDL Cholesterol,Calculated 75.9 mg/dL (0.0-131.0); Non-African American GFR(CKD) 53.1 (60.0-200.0); Potassium 4.2 mmol/L (3.5-5.5); Sodium 138 mmol/L (135-145)
== END | disposition home or self-care (01) ==
LOC: LABWHC1 11:44
PROVIDERS: ATTEND Internal Medicine
DX: E27.1 Primary adrenocortical insufficiency (principal); E03.9 Hypothyroidism, unspecified; E55.9 Vitamin D deficiency, unspecified; E78.5 Hyperlipidemia, unspecified
CPT/HCPCS: 36415; 80053; 80061; 82306; 84439; 84443

== ENCOUNTER → 2022-03-31 | Outpatient (CLI) | payer MEDICARE ==
[2022-03-31 18:40] LABS: Basophils # (A) 0.07 X 10*3/uL (0.00-0.10); Basophils % (A) 0.8 %; Eosinophils # (A) 0.28 X 10*3/uL (0.04-0.35); Eosinophils % (A) 3.2 %; HCT 36.6 % (39.6-50.0); HGB 11.6 g/dL (13.0-17.0); Immature Grans, Automated 0.3 %; Lymphocytes # (A) 2.18 X 10*3/uL (0.90-5.00); Lymphocytes % (A) 24.9 %; MCH 31.8 pg (27.0-32.0); MCHC 31.7 g/dL (32.0-37.0); MCV 100.3 fL (80.0-97.0); Mean Platelet Volume 10.4 fL (9.5-12.2); Monocytes # (A) 0.75 X 10*3/uL (0.20-1.00); Monocytes % (A) 8.6 %; NRBC Per 100 WBC 0 /100 WBCS (0.0-0.0); Neutrophils # (A) 5.44 X 10*3/uL (1.80-7.70); Neutrophils % (A) 62.2 %; Platelet Count 200 X 10*3/uL (140-440); RBC 3.65 X 10*6/uL (4.40-5.60); RDW 13.5 % (11.5-14.5); WBC 8.75 X 10*3/uL (4.50-10.00)
[2022-03-31 19:28] LABS: % Iron Saturation 23.72 (15.00-50.00); ALT 24 U/L (10-49); AST 24 U/L (14-35); African American GFR (CKD) 47.2 (60.0-200.0); Albumin 4.4 g/dL (3.8-4.9); Albumin/Globulin Ratio 1.78 (1.60-3.17); Alkaline Phosphatase 63 U/L (41-126); BUN/Creat Ratio 17.63 Ratio (12.00-20.00); Blood Urea Nitrogen 27.5 mg/dL (9.0-27.0); Calcium 9.3 mg/dL (8.7-10.3); Carbon Dioxide 25.1 mmol/L (20.0-27.5); Chloride 104 mmol/L (96-109); Chol/HDL Ratio 3.47 Ratio; Creatine Kinase 183 U/L (35-257); Globulin 2.5 g/dL (1.6-3.3); Glucose 92 mg/dL (70-110); Iron 72 ug/dL (65-175); LDL Cholesterol,Calculated 54.6 mg/dL (0.0-131.0); Non-African American GFR(CKD) 40.8 (60.0-200.0); Potassium 4.4 mmol/L (3.5-5.5); Sodium 140 mmol/L (135-145); Total Iron Binding Capacity 305 ug/dL (228-460); Total Protein 6.8 g/dL (6.2-8.2)
== END | disposition home or self-care (01) ==
LOC: LABWHC1 11:52
PROVIDERS: ATTEND Nurse Practitioner
DX: Z00.01 Encounter for general adult medical examination with abnormal findings (principal); Z12.5 Encounter for screening for malignant neoplasm of prostate; I10 Essential (primary) hypertension; I48.91 Unspecified atrial fibrillation; I71.11 Aneurysm of the ascending aorta, ruptured; E78.5 Hyperlipidemia, unspecified; G25.81 Restless legs syndrome
CPT/HCPCS: 80061; 80053; 82607; 82728; 82550; 82746; 83540; 83550; 85025; 83036; 36415; G0103

== ENCOUNTER → 2023-04-30 | Outpatient (CLI) | payer MEDICARE ==
[2023-04-30 16:29] LABS: ALT 26 U/L (10-49); AST 31 U/L (14-35); Albumin 4.5 g/dL (3.8-4.9); Albumin/Globulin Ratio 1.45 Ratio (1.60-3.17); Alkaline Phosphatase 73 U/L (41-126); BUN/Creat Ratio 23.19 Ratio (12.00-20.00); Blood Urea Nitrogen 37.1 mg/dL (9.0-27.0); Calcium 9.8 mg/dL (8.7-10.3); Carbon Dioxide 25.6 mmol/L (21.6-31.8); Chloride 102 mmol/L (96-109); Chol/HDL Ratio 3.73 Ratio; Globulin 3.1 g/dL (1.6-3.3); Glucose 84 mg/dL (70-110); LDL Cholesterol,Calculated 69.2 mg/dL (0.0-131.0); Potassium 4.8 mmol/L (3.5-5.5); Sodium 138 mmol/L (135-145); T4, Free (Free Thyroxine) 0.92 ng/dL (0.80-1.80); Total Bilirubin 0.4 mg/dL (0.3-1.2); Total Protein 7.6 g/dL (6.2-8.2)
== END | disposition home or self-care (01) ==
LOC: LABWHC1 09:30
PROVIDERS: ATTEND Internal Medicine
DX: E03.9 Hypothyroidism, unspecified (principal); E55.9 Vitamin D deficiency, unspecified; E78.5 Hyperlipidemia, unspecified
CPT/HCPCS: 36415; 80053; 80061; 82306; 84439; 84443

== ENCOUNTER → 2023-06-11 | Outpatient (CLI) | payer MEDICARE ==
[2023-06-11 15:49] LABS: BUN/Creat Ratio 23.71 Ratio (12.00-20.00); Blood Urea Nitrogen 33.2 mg/dL (9.0-27.0); Chloride 103 mmol/L (96-109); Glucose 86 mg/dL (70-110); Potassium 4.4 mmol/L (3.5-5.5); Sodium 137 mmol/L (135-145)
[2023-06-11 15:50] LABS: ALT 28 U/L (10-49); AST 30 U/L (14-35); Albumin 4.4 g/dL (3.8-4.9); Albumin/Globulin Ratio 1.38 Ratio (1.60-3.17); Alkaline Phosphatase 69 U/L (41-126); Calcium 9.7 mg/dL (8.7-10.3); Carbon Dioxide 22.9 mmol/L (21.6-31.8); Globulin 3.2 g/dL (1.6-3.3); Total Bilirubin 0.4 mg/dL (0.3-1.2); Total Protein 7.6 g/dL (6.2-8.2)
== END | disposition home or self-care (01) ==
LOC: LABWHC1 09:10
PROVIDERS: ATTEND Internal Medicine
DX: E27.1 Primary adrenocortical insufficiency (principal)
CPT/HCPCS: 36415; 80053

== ENCOUNTER 2023-09-07 20:12 | Emergency (ER) | payer MEDICARE ==
[2023-09-07 20:28] VITALS: TEMP 97.5
--- NOTE | 2023-09-07 20:56 | ED ---
Upper Extremity HPI - General Chief Complaint: Extremity Injury, Upper Stated Complaint: L Wrist Laceration Time Seen by Provider: 09/07/23 20:52 Source: patient, family, RN notes reviewed Mode of arrival: ambulatory Limitations: no limitations - History of Present Illness Initial Comments: 83-year-old male presenting with left wrist laceration. States he was trying to cut a zip tie with a pocket knife and accidentally sliced himself on the ventral aspect of left wrist. He is currently taking warfarin. Last tetanus unknown. He is able to move his wrist with no pain. Denies numbness or tingling in the hand. - Related Data Home Medications Medication Instructions Recorded Confirmed Levothyroxine Sodium [Synthroid] 25 mcg PO SUWE 11/17/13 12/17/21 Warfarin [Coumadin] 7.5 mg PO FR@209911/17/13 12/17/21 Warfarin [Coumadin] 3.75 mg PO SUMOTUWETHSA@209905/20/18 12/17/21 FLUoxetine HCL [PROzac] 20 mg PO DAILY 11/24/19 12/17/21 Levothyroxine Sodium [Synthroid] 50 mcg PO MOTUTHFRSA 11/24/19 12/17/21 rOPINIRole HCL [Requip] 5 mg PO HS 11/24/19 12/17/21 Hydrocortisone [Cortef] 40 mg PO DAILY 11/18/21 12/17/21 Omeprazole 20 mg PO DAILY 11/19/21 12/17/21 Calcium Carbonate [Calcium] 600 mg PO DAILY 12/17/21 12/17/21 Cholecalciferol [Vitamin D3 (125 125 mcg PO DAILY 12/17/21 12/17/21 Mcg = 5000 Iu)] Fludrocortisone [Florinef] 0.1 mg PO THFRSA 12/17/21 12/17/21 Rosuvastatin Calcium 5 mg PO DAILY 12/17/21 12/17/21 Previous Rx's Medication Instructions Recorded Cephalexin [Keflex] 500 mg PO ONCE 1 Days #1 cap 12/20/21 Metoprolol Tartrate 25 mg PO BID #60 tab 12/20/21 Cephalexin [Keflex] 500 mg PO Q12HR 5 Days #10 cap 09/07/23 Allergies Allergy/AdvReac Type Severity Reaction Status Date / Time bee pollen [Bee Pollen] Allergy Anaphylaxis Verified 09/07/23 20:28 Sulfa (Sulfonamide Allergy Rash/Hives Verified 09/07/23 20:28 Antibiotics) wasp Allergy Anaphylaxis Uncoded 12/17/21 16:49 Review of Systems ROS Statement: Those systems with pertinent positive or pertinent negative responses have been documented in the HPI. ROS Other: All systems not noted in ROS Statement are negative. Past Medical History Past Medical History: Atrial Fibrillation, Coronary Artery Disease (CAD), Chest Pain / Angina, Heart Failure, Eye Disorder, GERD/Reflux, Hearing Disorder / Deafness, Hyperlipidemia, Hypertension, Myocardial Infarction ([place]), Neurologic Disorder, Osteoarthritis (OA), Sleep Apnea/CPAP/BIPAP, Supraventricular Tachycardia (SVT), Thyroid Disorder Additional Past Medical History / Comment(s): [place]'s disease, RLS., aortic aneurysm-Dr. SIMON Christiansen following., tx. in past for Parkinson's ; right eye doesn't react (dilated).,uses cpap machine., states difficulty swallowing. Last Myocardial Infarction Date:: unknown History of Any Multi-Drug Resistant Organisms: None Reported Past Surgical History: Cardiac Ablation, Coronary Bypass/CABG, Heart Catheterization With Stent, Hernia Repair, Orthopedic Surgery Additional Past Surgical History / Comment(s): double CABG 1994., abdominal hernia repair, rt inguinal hernia repair x 3, myles total shoulder replaced, retinal surgery bilateral eyes, myles cataracts, total hip, state hx of 3 cardiac stents. Past Anesthesia/Blood Transfusion Reactions: No Reported Reaction Additional Past Anesthesia/Blood Transfusion Reaction / Comment(s): . Date of Last Stent Placement:: 2015 Past Psychological History: Depression Smoking Status: Never smoker Past Alcohol Use History: None Reported Past Drug Use History: None Reported - Past Family History Sister(s) Family Medical History: Dementia Mother Family Medical History: Diabetes Mellitus, Deep Vein Thrombosis (DVT) Father Family Medical History: AFIB, Coronary Artery Disease (CAD), Myocardial Infarction ([place]) General Exam Limitations: no limitations General appearance: alert, in no apparent distress Head exam: Present: atraumatic, normocephalic, normal inspection Left Elbow exam: Present: normal inspection, full ROM. Absent: tenderness, swelling Forearm Wrist exam: Present: full ROM, laceration (5 cm horizontal deep, linear laceration present on ventral aspect of left wrist. Subcutaneous tissue exposed. There is active bleeding.). Absent: tenderness Hand Wrist exam: Present: normal inspection, full ROM. Absent: tenderness, swelling Vascular: Present: normal capillary refill (Full sensation and radial pulses bilaterally). Absent: vascular compromise Neurological exam: Present: alert, oriented X3 Psychiatric exam: Present: normal affect, normal mood Skin exam: Present: warm, dry, intact, normal color. Absent: rash Course Vital Signs 09/07/23 20:24 Temperature 97.5 F L Pulse Rate 63 Respiratory 18 Rate Blood Pressure 106/60 O2 Sat by Pulse 98 Oximetry Procedures - Laceration Laceration #1 Consent Obtained: verbal consent Indication: laceration Site: upper extremity Size (cm): 7 Description: linear Depth: simple, single layer Anesthetic Used: lidocaine 1%, without epi Anesthesia Technique: local infiltration Amount (mls): 4 Pre-repair: wound explored, irrigated extensively, deep structures intact Type of Sutures: nylon Size of Sutures: 4-0 Number of Sutures: 7 Technique: simple, interrupted Patient Tolerated Procedure: well, no complications Additional Comments: Neurovascularly intact status post procedure Medical Decision Making - Medical Decision Making Was pt. sent in by a medical professional or institution (, PA, [employer], urgent care, hospital, or retirement...) When possible be specific @ -No Did you speak to anyone other than the patient for history (EMS, parent, family, police, friend...)? What history was obtained from this source @ -No Did you review nursing and triage notes (agree or disagree)? Why? @ -I reviewed and agree with nursing and triage notes Were old charts reviewed (outside hosp., previous admission, EMS record, old EKG, old radiological studies, urgent care reports/EKG's, retirement records)? Report findings @ -No old charts were reviewed Differential Diagnosis (chest pain, altered mental status, abdominal pain women, abdominal pain men, vaginal bleeding, weakness, fever, dyspnea, syncope, headache, dizziness, GI bleed, back pain, seizure, CVA, palpatations, mental health, musculoskeletal)? @ -Differential Musculoskeletal Muscular strain, contusion, ligament sprain, fracture, arthritis, septic arthritis, bursitis, cellulitis, muscle spasm, nerve compression, DVT, arterial occlusion, herpes zoster, electrolyte abnormality, tumor.... This is not meant to be in all inclusive list EKG interpreted by me (3pts min.). @ -None X-rays interpreted by me (1pt min.). @ -None done CT interpreted by me (1pt min.). @ -None done U/S interpreted by me (1pt. min.). @ -None done What testing was considered but not performed or refused? (CT, X-rays, U/S, labs)? Why? @ -Imaging not performed due to low suspicion of fracture What meds were considered but not given or refused? Why? @ -None Did you discuss the management of the patient with other professionals (professionals i.e. DrMilagro, PA, [employer]IC, lab, RT, psych nurse, social staff worker, credentialing assistant, teacher, environmental conservation officer, embedded case manager)? Give summary @ -No Was smoking cessation discussed for >3mins.? @ -No Was critical care preformed (if so, how long)? @ -No Were there social determinants of health that impacted care today? How? (Homelessness, low income, unemployed, alcoholism, drug addiction, transportation, low edu. Level, literacy, decrease access to med. care, alf, rehab)? @ -No Was there de-escalation of care discussed even if they declined (Discuss DNR or withdrawal of care, Hospice)? DNR status @ -No What co-morbidities impacted this encounter? (DM, HTN, Smoking, COPD, CAD, Cancer, CVA, ARF, Chemo, Hep., AIDS, mental health diagnosis, sleep apnea, morbid obesity)? @ -None Was patient admitted / discharged? Hospital course, mention meds given and route, prescriptions, significant lab abnormalities, going to OR and other pertinent info. @ -Patient was discharged. Patient was seen and evaluated for left wrist laceration. Patient accidentally sliced himself with a box knife while trying to cut a zip tie. Patient is on warfarin. Neurovascularly intact. Patient has full range of motion of left wrist. Wound was irrigated thoroughly and 7 sutures were placed with no complications. Tetanus was updated. Wound care discussed. Advised to follow-up in 7 days for suture removal. Prescribed Keflex for antibacterial prophylaxis. Return parameters discussed and patient is agreeable to plan. Case discussed with my attending Dr. Bacon. Patient discharged in stable condition. Undiagnosed new problem with uncertain prognosis? @ -No Drug Therapy requiring intensive monitoring for toxicity (Heparin, Nitro, Insulin, Cardizem)? @ -No Were any procedures done? @ -7 sutures performed Diagnosis/symptom? @ -Left wrist laceration Acute, or Chronic, or Acute on Chronic? @ -Acute Uncomplicated (without systemic symptoms) or Complicated (systemic symptoms)? @ -Uncomplicated Side effects of treatment? @ -No Exacerbation, Progression, or Severe Exacerbation? @ -No Poses a threat to life or bodily function? How? (Chest pain, [place], [place], pneumonia, PE, COPD, DKA, ARF, appy, cholecystitis, CVA, Diverticulitis, Homicidal, Suicidal, threat to staff... and all critical care pts) @ -No Disposition Clinical Impression: Laceration of left wrist Disposition: HOME SELF-CARE Condition: Stable Instructions (If sedation given, give patient instructions): Care For Your Stitches (ED), Laceration (ED) Additional Instructions: Please take Keflex as prescribed. Follow-up in 7 days for suture removal. Keep wound dry for the first 24 hours, then you may gently wash wound with antibacterial soap and water. Please return to the Emergency Department if symptoms worsen or any other concerns. Prescriptions: Cephalexin [Keflex] 500 mg PO Q12HR 5 Days #10 cap Is patient prescribed a controlled substance at d/c from ED?: No Referrals: Camacho Coello MD [Primary Care Provider] - 1-2 days Time of Disposition: 22:16
[2023-09-07] MEDS: LIDOCAINE 1% INJ 10MG/ML (20 ML MDV) SQ ONE (21:14)
[2023-09-07] MEDS: DIPH,PERTUS(ACELL)TETVAC-LF 0.5 ML VIAL IM ONE (21:15)
[2023-09-07 22:33] VITALS: BP 111/71; PULSE 65; RESP 16
== END 2023-09-07 22:26 | disposition home or self-care (01) ==
LOC: EC 20:12
DX: S61.512A Laceration without foreign body of left wrist, initial encounter (principal); Z23 Encounter for immunization; Z88.2 Allergy status to sulfonamides; Z91.030 Bee allergy status; Z88.8 Allergy status to other drugs, medicaments and biological substances; W26.0XXA Contact with knife, initial encounter
CPT/HCPCS: 90715; 12002; 99283; 90471; J2001

== ENCOUNTER → 2023-12-28 | Outpatient (CLI) | payer MEDICARE ==
--- NOTE | 2023-12-28 18:15 | US ---
EXAMINATION TYPE: US neck DATE OF EXAM: 12/28/2023 COMPARISON: US, CT CLINICAL INDICATION: Male, 83 years old with history of R09.A2 FOREIGN BODY SENSATION, THROAT; Pt sta rey feeling of foreign body in throat TECHNIQUE: Grayscale imaging of the thyroid gland and bilateral lateral neck FINDINGS: GLAND SIZE: Right Lobe: 3.9 x 1.3 x 1.5 cm Overall Parenchyma: homogeneous Left Lobe: 2.9 x 1.1 x 1.2 cm Overall Parenchyma: homogeneous Isthmus Thickness: 0.3 cm NODULES RIGHT: # of nodules measured on right: 0 LEFT: # of nodules measured on left: 0 ISTHMUS: # of nodules measured in the isthmus: 0 Bilateral neck scanned, lymph node left lateral neck= 1.1 x 0.7 x 0.7 cm with cortex thickness= 0.5 c m Bilateral thyroid appeared wnl IMPRESSION: 1. No clinically significant pulmonary nodules. 2. Normal morphologic appearance of left neck lymph node. [facility], , 12/28/2023 6:13 PM
== END | disposition home or self-care (01) ==
LOC: RADUSWWP 15:51
PROVIDERS: ATTEND Family Medicine
DX: R09.A2 Foreign body sensation, throat (principal)
CPT/HCPCS: 76536

== ENCOUNTER 2024-06-12 19:15 | Emergency (ER) | payer MEDICARE ==
[2024-06-12 19:21] VITALS: BP 113/73; PULSE 81; RESP 18; TEMP 98.1
--- NOTE | 2024-06-12 19:21 | ED ---
General Adult HPI - General Stated complaint: Altered Mental Status, Fall - History of Present Illness Initial comments: Pleasant 84-year-old gentleman brought to the emergency department today by ambulance after a fall at home. Patient reports he tripped over his feet fell backwards and hit his head. Patient is on blood thinners. May have lost consciousness briefly. Patient reports mild headache. No other complaints. - Related Data Home Medications Medication Instructions Recorded Confirmed Levothyroxine Sodium [Synthroid] 25 mcg PO SUWE 11/17/13 12/17/21 Warfarin [Coumadin] 7.5 mg PO FR@209911/17/13 12/17/21 Warfarin [Coumadin] 3.75 mg PO SUMOTUWETHSA@209905/20/18 12/17/21 FLUoxetine HCL [PROzac] 20 mg PO DAILY 11/24/19 12/17/21 Levothyroxine Sodium [Synthroid] 50 mcg PO MOTUTHFRSA 11/24/19 12/17/21 rOPINIRole HCL [Requip] 5 mg PO HS 11/24/19 12/17/21 Hydrocortisone [Cortef] 40 mg PO DAILY 11/18/21 12/17/21 Omeprazole 20 mg PO DAILY 11/19/21 12/17/21 Calcium Carbonate [Calcium] 600 mg PO DAILY 12/17/21 12/17/21 Cholecalciferol [Vitamin D3 (125 125 mcg PO DAILY 12/17/21 12/17/21 Mcg = 5000 Iu)] Fludrocortisone [Florinef] 0.1 mg PO THFRSA 12/17/21 12/17/21 Rosuvastatin Calcium 5 mg PO DAILY 12/17/21 12/17/21 Previous Rx's Medication Instructions Recorded Cephalexin [Keflex] 500 mg PO ONCE 1 Days #1 cap 12/20/21 Metoprolol Tartrate 25 mg PO BID #60 tab 12/20/21 Cephalexin [Keflex] 500 mg PO Q12HR 5 Days #10 cap 09/07/23 Allergies Allergy/AdvReac Type Severity Reaction Status Date / Time bee pollen [Bee Pollen] Allergy Anaphylaxis Verified 09/07/23 20:28 Sulfa (Sulfonamide Allergy Rash/Hives Verified 09/07/23 20:28 Antibiotics) wasp Allergy Anaphylaxis Uncoded 12/17/21 16:49 Review of Systems ROS Statement: Those systems with pertinent positive or pertinent negative responses have been documented in the HPI. ROS Other: All systems not noted in ROS Statement are negative. Past Medical History Past Medical History: Atrial Fibrillation, Coronary Artery Disease (CAD), Chest Pain / Angina, Heart Failure, Eye Disorder, GERD/Reflux, Hearing Disorder / Deafness, Hyperlipidemia, Hypertension, Myocardial Infarction (OK), Neurologic Disorder, Osteoarthritis (OA), Sleep Apnea/CPAP/BIPAP, Supraventricular Tachycardia (SVT), Thyroid Disorder Additional Past Medical History / Comment(s): [place]'s disease, RLS., aortic aneurysm-Dr. SIMON Christiansen following., tx. in past for Parkinson's ; right eye doesn't react (dilated).,uses cpap machine., states difficulty swallowing. Last Myocardial Infarction Date:: unknown History of Any Multi-Drug Resistant Organisms: None Reported Past Surgical History: Cardiac Ablation, Coronary Bypass/CABG, Heart Catheterization With Stent, Hernia Repair, Orthopedic Surgery Additional Past Surgical History / Comment(s): double CABG 1994., abdominal hernia repair, rt inguinal hernia repair x 3, myles total shoulder replaced, retinal surgery bilateral eyes, myles cataracts, total hip, state hx of 3 cardiac stents. Past Anesthesia/Blood Transfusion Reactions: No Reported Reaction Additional Past Anesthesia/Blood Transfusion Reaction / Comment(s): . Date of Last Stent Placement:: 2015 Past Psychological History: Depression Smoking Status: Never smoker Past Alcohol Use History: None Reported Past Drug Use History: None Reported - Past Family History Sister(s) Family Medical History: Dementia Mother Family Medical History: Diabetes Mellitus, Deep Vein Thrombosis (DVT) Father Family Medical History: AFIB, Coronary Artery Disease (CAD), Myocardial Infarction (OK) General Exam - General Exam Comments Initial Comments: Physical Exam GENERAL: Patient is well-developed and well-nourished. HENT: Abrasion to posterior scalp, no active bleeding EYES: PERRL, EOMI PULMONARY: Unlabored respirations. CARDIOVASCULAR: RRR Warm and well perfused extremities ABDOMEN: Non-distended SKIN: No rashes or bruising : Deferred NEUROLOGIC: Alert and oriented Normal speech MUSCULOSKELETAL: Moving all extremities with no apparent injury PSYCHIATRIC: No SI/HI Course Vital Signs 06/12/24 19:17 Temperature 98.1 F Pulse Rate 81 Respiratory 18 Rate Blood Pressure 113/73 O2 Sat by Pulse 95 Oximetry EKG Findings - EKG Comments: EKG Findings:: Interpreted by me EKG obtained as per the trauma workup EKG obtained at 1821 rate is 77 rhythm is paced. No ST elevations or depressions no evidence of ischemia or infarction Medical Decision Making - Medical Decision Making Was pt. sent in by a medical professional or institution (KATHRYN Hilton, UNDERGROUND SUPERVISOR, urgent care, hospital, or longterm...) When possible be specific @ -No Did you speak to anyone other than the patient for history (EMS, parent, family, police, friend...)? What history was obtained from this source @ -EMS, daughter Did you review nursing and triage notes (agree or disagree)? Why? @ -I reviewed and agree with nursing and triage notes Were old charts reviewed (outside hosp., previous admission, EMS record, old EKG, old radiological studies, urgent care reports/EKG's, longterm records)? Report findings @ -No old charts were reviewed Differential Diagnosis (chest pain, altered mental status, abdominal pain women, abdominal pain men, vaginal bleeding, weakness, fever, dyspnea, syncope, headache, dizziness, GI bleed, back pain, seizure, CVA, palpatations, mental health)? @ -Not applicable EKG interpreted by me (3pts min.). @ -As above X-rays interpreted by me (1pt min.). @ -Chest x-ray no acute findings pelvis no acute findings CT interpreted by me (1pt min.). @ -Brain with no bleed mass or midline shift, no skull fracture U/S interpreted by me (1pt. min.). @ -None done What testing was considered but not performed or refused? (CT, X-rays, U/S, labs)? Why? @ -None What meds were considered but not given or refused? Why? @ -None Did you discuss the management of the patient with other professionals (professionals i.e. KATHRYN Hilton, UNDERGROUND SUPERVISOR, lab, RT, psych nurse, oncology social worker, gas leak tester, teacher, chief sustainability officer, case packer and sealer)? Give summary @ -Ricardo with trauma doctor Dr. Isbell Was smoking cessation discussed for >3mins.? @ -No Was critical care preformed (if so, how long)? @ -No Were there social determinants of health that impacted care today? How? (Homelessness, low income, unemployed, alcoholism, drug addiction, transportation, low edu. Level, literacy, decrease access to med. care, penitentiary, rehab)? @ -No Was there de-escalation of care discussed even if they declined (Discuss DNR or withdrawal of care, Hospice)? DNR status @ -No What co-morbidities impacted this encounter? (DM, HTN, Smoking, COPD, CAD, Cancer, CVA, ARF, Chemo, Hep., AIDS, mental health diagnosis, sleep apnea, morbid obesity)? @ -None Was patient admitted / discharged? Hospital course, mention meds given and route, prescriptions, significant lab abnormalities, going to OR and other pertinent info. @ -Discharged Level 2 trauma activation secondary to fall with head injury on blood thinner Patient was seen and evaluated History obtained from patient and EMS Physical exam reveals an abrasion to the scalp but no other injuries imaging and labs were ordered Labs and imaging were unremarkable wound was cleansed there is no indication for repair there is no large lacerations only an abrasion on the back of the scalp Tetanus was updated Patient's daughter at bedside states that patient is acting like his usual self she has no concerns for his mental status and she is comfortable plan for discharge home Undiagnosed new problem with uncertain prognosis? @ -No Drug Therapy requiring intensive monitoring for toxicity (Heparin, Nitro, Insulin, Cardizem)? @ -No Were any procedures done? @ -No Diagnosis/symptom? @ -Fall at home, scalp abrasion Acute, or Chronic, or Acute on Chronic? @ -Acute Uncomplicated (without systemic symptoms) or Complicated (systemic symptoms)? @ -Uncomplicated Side effects of treatment? @ -No Exacerbation, Progression, or Severe Exacerbation? @ -No Poses a threat to life or bodily function? How? (Chest pain, [place], OK, pneumonia, PE, COPD, DKA, ARF, appy, cholecystitis, CVA, Diverticulitis, Homicidal, Suicidal, threat to staff... and all critical care pts) @ -No - Lab Data Result diagrams: 06/12/24 19:31 06/12/24 19:31 Lab Results 06/12/24 06/12/24 06/12/24 Range/Units 19:31 19:31 19:31 WBC 8.31 (4.50-10.00) 10*3/uL RBC 3.77 L (4.40-5.60) 10*6/uL Hgb 12.3 L (13.0-17.0) g/dL Hct 36.7 L (39.6-50.0) % MCV 97.3 H (80.0-97.0) fL MCH 32.6 H (27.0-32.0) pg MCHC 33.5 (32.0-37.0) g/dL Plt Count 246 (140-440) 10*3/uL MPV 10.1 (9.5-12.2) fL Immature Gran % (Auto) 0.4 % Neutrophils % 44.8 % Lymphocytes % 41.3 % Monocytes % 9.3 % Eosinophils % 3.4 % Basophils % 0.8 % Immature Gran # 0.03 (0.00-0.04) 10*3/uL Neutrophils # 3.73 (1.80-7.70) 10*3/uL Lymphocytes # 3.43 (0.90-5.00) 10*3/uL Monocytes # 0.77 (0.20-1.00) 10*3/uL Eosinophils # 0.28 (0.04-0.35) 10*3/uL Basophils # 0.07 (0.00-0.10) 10*3/uL PT 18.7 H (10.0-12.5) sec INR 1.8 H (<1.2) APTT 31.2 H (22.0-30.0) sec Sodium 137 (137-145) mmol/L Potassium 4.0 (3.5-5.1) mmol/L Chloride 103 (98-107) mmol/L Carbon Dioxide 23 (22-30) mmol/L Anion Gap 11 mmol/L BUN 36 H (9-20) mg/dL Creatinine 1.63 H (0.66-1.25) mg/dL Est GFR (CKD-EPI)AfAm 44 (>60 ml/min/1.73 sqM) Est GFR (CKD-EPI)NonAf 38 (>60 ml/min/1.73 sqM) Glucose 93 (74-99) mg/dL Plasma Lactic Acid Naveed (0.7-2.0) mmol/L Calcium 9.6 (8.4-10.2) mg/dL Magnesium 2.0 (1.6-2.3) mg/dL Total Bilirubin 0.7 (0.2-1.3) mg/dL AST 25 (17-59) U/L ALT 16 (4-49) U/L Alkaline Phosphatase 60 (38-126) U/L Troponin I (0.000-0.034) ng/mL Total Protein 7.3 (6.3-8.2) g/dL Albumin 4.2 (3.5-5.0) g/dL TSH 4.830 H (0.465-4.680) mIU/L Free T4 0.81 (0.78-2.19) ng/dL Urine Opiates Screen (NotDetected) Ur Oxycodone Screen (NotDetected) Urine Methadone Screen (NotDetected) Ur Barbiturates Screen (NotDetected) U Tricyclic Antidepress (NotDetected) Ur Phencyclidine Scrn (NotDetected) Ur Amphetamines Screen (NotDetected) U Methamphetamines Scrn (NotDetected) U Benzodiazepines Scrn (NotDetected) Urine Cocaine Screen (NotDetected) U Marijuana (THC) Screen (NotDetected) Serum Alcohol <10 mg/dL Blood Type Blood Type Recheck Bld Type Recheck Status Antibody Screen Spec Expiration Date 06/12/24 06/12/24 06/12/24 Range/Units 19:31 19:31 19:31 WBC (4.50-10.00) 10*3/uL RBC (4.40-5.60) 10*6/uL Hgb (13.0-17.0) g/dL Hct (39.6-50.0) % MCV (80.0-97.0) fL MCH (27.0-32.0) pg MCHC (32.0-37.0) g/dL Plt Count (140-440) 10*3/uL MPV (9.5-12.2) fL Immature Gran % (Auto) % Neutrophils % % Lymphocytes % % Monocytes % % Eosinophils % % Basophils % % Immature Gran # (0.00-0.04) 10*3/uL Neutrophils # (1.80-7.70) 10*3/uL Lymphocytes # (0.90-5.00) 10*3/uL Monocytes # (0.20-1.00) 10*3/uL Eosinophils # (0.04-0.35) 10*3/uL Basophils # (0.00-0.10) 10*3/uL PT (10.0-12.5) sec INR (<1.2) APTT (22.0-30.0) sec Sodium (137-145) mmol/L Potassium (3.5-5.1) mmol/L Chloride (98-107) mmol/L Carbon Dioxide (22-30) mmol/L Anion Gap mmol/L BUN (9-20) mg/dL Creatinine (0.66-1.25) mg/dL Est GFR (CKD-EPI)AfAm (>60 ml/min/1.73 sqM) Est GFR (CKD-EPI)NonAf (>60 ml/min/1.73 sqM) Glucose (74-99) mg/dL Plasma Lactic Acid Naveed 1.7 (0.7-2.0) mmol/L Calcium (8.4-10.2) mg/dL Magnesium (1.6-2.3) mg/dL Total Bilirubin (0.2-1.3) mg/dL AST (17-59) U/L ALT (4-49) U/L Alkaline Phosphatase (38-126) U/L Troponin I <0.012 (0.000-0.034) ng/mL Total Protein (6.3-8.2) g/dL Albumin (3.5-5.0) g/dL TSH (0.465-4.680) mIU/L Free T4 (0.78-2.19) ng/dL Urine Opiates Screen (NotDetected) Ur Oxycodone Screen (NotDetected) Urine Methadone Screen (NotDetected) Ur Barbiturates Screen (NotDetected) U Tricyclic Antidepress (NotDetected) Ur Phencyclidine Scrn (NotDetected) Ur Amphetamines Screen (NotDetected) U Methamphetamines Scrn (NotDetected) U Benzodiazepines Scrn (NotDetected) Urine Cocaine Screen (NotDetected) U Marijuana (THC) Screen (NotDetected) Serum Alcohol mg/dL Blood Type A Positive Blood Type Recheck A Pos Bld Type Recheck Status No Antibody Screen NEGATIVE Spec Expiration Date 06/15/2024 - 233006/12/24 Range/Units 21:30 WBC (4.50-10.00) 10*3/uL RBC (4.40-5.60) 10*6/uL Hgb (13.0-17.0) g/dL Hct (39.6-50.0) % MCV (80.0-97.0) fL MCH (27.0-32.0) pg MCHC (32.0-37.0) g/dL Plt Count (140-440) 10*3/uL MPV (9.5-12.2) fL Immature Gran % (Auto) % Neutrophils % % Lymphocytes % % Monocytes % % Eosinophils % % Basophils % % Immature Gran # (0.00-0.04) 10*3/uL Neutrophils # (1.80-7.70) 10*3/uL Lymphocytes # (0.90-5.00) 10*3/uL Monocytes # (0.20-1.00) 10*3/uL Eosinophils # (0.04-0.35) 10*3/uL Basophils # (0.00-0.10) 10*3/uL PT (10.0-12.5) sec INR (<1.2) APTT (22.0-30.0) sec Sodium (137-145) mmol/L Potassium (3.5-5.1) mmol/L Chloride (98-107) mmol/L Carbon Dioxide (22-30) mmol/L Anion Gap mmol/L BUN (9-20) mg/dL Creatinine (0.66-1.25) mg/dL Est GFR (CKD-EPI)AfAm (>60 ml/min/1.73 sqM) Est GFR (CKD-EPI)NonAf (>60 ml/min/1.73 sqM) Glucose (74-99) mg/dL Plasma Lactic Acid Naveed (0.7-2.0) mmol/L Calcium (8.4-10.2) mg/dL Magnesium (1.6-2.3) mg/dL Total Bilirubin (0.2-1.3) mg/dL AST (17-59) U/L ALT (4-49) U/L Alkaline Phosphatase (38-126) U/L Troponin I (0.000-0.034) ng/mL Total Protein (6.3-8.2) g/dL Albumin (3.5-5.0) g/dL TSH (0.465-4.680) mIU/L Free T4 (0.78-2.19) ng/dL Urine Opiates Screen Not Detected (NotDetected) Ur Oxycodone Screen Not Detected (NotDetected) Urine Methadone Screen Not Detected (NotDetected) Ur Barbiturates Screen Not Detected (NotDetected) U Tricyclic Antidepress Not Detected (NotDetected) Ur Phencyclidine Scrn Not Detected (NotDetected) Ur Amphetamines Screen Not Detected (NotDetected) U Methamphetamines Scrn Not Detected (NotDetected) U Benzodiazepines Scrn Not Detected (NotDetected) Urine Cocaine Screen Not Detected (NotDetected) U Marijuana (THC) Screen Detected H (NotDetected) Serum Alcohol mg/dL Blood Type Blood Type Recheck Bld Type Recheck Status Antibody Screen Spec Expiration Date Disposition Clinical Impression: Fall, Scalp abrasion Disposition: HOME SELF-CARE Condition: Stable Instructions (If sedation given, give patient instructions): Fall Prevention for Older Adults (ED) Is patient prescribed a controlled substance at d/c from ED?: No Referrals: Camacho Coello MD [Primary Care Provider] - 1-2 days
--- NOTE | 2024-06-12 19:35 | XR ---
EXAMINATION TYPE: XR chest 1V portable DATE OF EXAM: 06/12/2024 7:28 PM COMPARISON: None. CLINICAL INDICATION: Male, 84 years old with history of trauma, TECHNIQUE: XR chest 1V portable view(s) obtained. FINDINGS: The heart size is normal. Pacemaker overlies left chest. The pulmonary vasculature is normal. The lungs are clear. Bilateral shoulder prostheses are present. Sternotomy wires are present in the midline. IMPRESSION: 1. No acute pulmonary process. [facility], , 06/12/2024 7:32 PM
--- NOTE | 2024-06-12 19:36 | XR ---
EXAMINATION TYPE: XR pelvis AP view DATE OF EXAM: 06/12/2024 7:28 PM COMPARISON: None. CLINICAL INDICATION: Male, 84 years old with history of Trauma, pain, fall TECHNIQUE: AP view(s) obtained. FINDINGS: Right femoral prosthesis is present with acetabular component. Symphysis pubis and sacroiliac joints are normal. No acute fractures are identified. IMPRESSION: 1. No acute osseous abnormality AP pelvis [facility], , 06/12/2024 7:33 PM
[2024-06-12 19:49] LABS: Basophils # (A) 0.07 10*3/uL (0.00-0.10); Basophils % (A) 0.8 %; Eosinophils # (A) 0.28 10*3/uL (0.04-0.35); Eosinophils % (A) 3.4 %; HCT 36.7 % (39.6-50.0); HGB 12.3 g/dL (13.0-17.0); Lymphocytes # (A) 3.43 10*3/uL (0.90-5.00); Lymphocytes % (A) 41.3 %; MCH 32.6 pg (27.0-32.0); MCHC 33.5 g/dL (32.0-37.0); MCV 97.3 fL (80.0-97.0); Mean Platelet Volume 10.1 fL (9.5-12.2); Monocytes # (A) 0.77 10*3/uL (0.20-1.00); Monocytes % (A) 9.3 %; Neutrophils # (A) 3.73 10*3/uL (1.80-7.70); Neutrophils % (A) 44.8 %; Platelet Count 246 10*3/uL (140-440); RBC 3.77 10*6/uL (4.40-5.60); RDW 13.9 % (11.5-14.5); WBC 8.31 10*3/uL (4.50-10.00)
--- NOTE | 2024-06-12 20:01 | CT ---
EXAMINATION TYPE: CT brain cspine wo con DATE OF EXAM: 06/12/2024 7:44 PM COMPARISON: None. CLINICAL INDICATION: Male, 84 years old with history of fall, P2 trauma, fall on thinners, pain TECHNIQUE: CT of the brain is performed utilizing 3 mm thick sections through the posterior fossa and 3 mm thick sections through the remaining calvarium. Study is performed within 24 hours of arrival to the hospital. Contrast used: mL of , (none if empty) CT DLP: 1628.3 mGycm, Automated exposure control for dose reduction was used. FINDINGS: No abnormal hyperdensity is present to suggest an acute intracranial hemorrhage. No mass lesion is evident. No acute infarcts are evident. Periventricular white matter hypodensity is present, likely on the ba sis of chronic white matter ischemic changes Ventricles and sulci are prominent for the patient age. There is opacification of the right maxillary sinus. Mild mucosal thickening in the left maxillary si nus. Opacification of anterior and mid right ethmoid air cells. Frontal sinuses are opacified. IMPRESSIONS: 1. No acute intracranial process. Follow-up MRI can be performed as clinically indicated. 2. Atrophy with chronic. Periventricular white matter ischemic changes. 3. Chronic paranasal sinusitis. CT cervical spine. COMPARISON: 04/11/2022 CT chest TECHNIQUE: CT of the cervical spine is performed in the axial plane at 2 mm thick sections. Reconstr ucted images in the coronal, and sagittal plane are reviewed on the computer. FINDINGS: No acute fractures are evident. Mild grade 1 spondylolisthesis of C4 and transferred C5 is present. There is a grade 1 approaching gr kip 2 spondylolisthesis of C7 on T1. Posterior disc space narrowing is present C3-4 due to mild degree C4-5. Diffuse loss of disc height i s present throughout the C5-6 C6-7 levels. Loss of disc height is present at C7-T1 and T1-2 disc leve ls. Vertebral body heights are preserved. No spinal canal stenosis is evident. Uncovertebral joint hypertrophy and facet hypertrophy is contributing to left foraminal stenosis at C 3-4 bilateral foraminal stenosis C4-5 C5-6. Mild foraminal narrowing is present C6-7 IMPRESSION: 1. Grade 1 approaching grade 2 spondylolisthesis of C7 anteriorly on T1 appears present to 12/19/2022 2. Grade 1 spondylolisthesis of C4 anteriorly on C5. 3. Disc space narrowing greatest C5-6 C6-7 and C7-T1. 4. No acute osseous abnormality radiographically apparent [facility], , 06/12/2024 7:59 PM
[2024-06-12 20:07] LABS: INR 1.8 (<1.2); Partial Thromboplastin Time 31.2 sec (22.0-30.0); Prothrombin Time 18.7 sec (10.0-12.5)
[2024-06-12 20:30] LABS: ALT 16 U/L (4-49); AST 25 U/L (17-59); African American GFR (CKD) 44 (>60 ml/min/1.73 sqM); Albumin 4.2 g/dL (3.5-5.0); Alcohol <10 mg/dL; Alkaline Phosphatase 60 U/L (38-126); Anion Gap 11 mmol/L; Blood Urea Nitrogen 36 mg/dL (9-20); Calcium 9.6 mg/dL (8.4-10.2); Carbon Dioxide 23 mmol/L (22-30); Chloride 103 mmol/L (98-107); Glucose 93 mg/dL (74-99); Non-African American GFR(CKD) 38 (>60 ml/min/1.73 sqM); Sodium 137 mmol/L (137-145); Total Bilirubin 0.7 mg/dL (0.2-1.3); Total Protein 7.3 g/dL (6.3-8.2)
[2024-06-12] MEDS: ACETAMINOPHEN TAB 325 MG TAB PO STA (21:57)
[2024-06-12 22:00] LABS: T4, Free (Free Thyroxine) 0.81 ng/dL (0.78-2.19)
[2024-06-12 22:09] LABS: Amphetamine Screen,Urine Not Detected (NotDetected); Barbiturate Screen,Urine Not Detected (NotDetected); Benzodiazepines Screen,Urine Not Detected (NotDetected); Cocaine Screen,Urine Not Detected (NotDetected); Methadone Screen, Urine Not Detected (NotDetected); Opiate Screen,Urine Not Detected (NotDetected); Oxycodone Screen, Urine Not Detected (NotDetected); Phencyclidine Screen,Urine Not Detected (NotDetected); Tricyclic Antidepressant,Urine Not Detected (NotDetected); Urn Cannabinoid Scrn Detected (NotDetected)
[2024-06-12] MEDS: DIPH,PERTUS(ACELL)TETVAC-LF 0.5 ML VIAL IM ONE (22:46)
== END 2024-06-12 23:08 | disposition home or self-care (01) ==
LOC: EC 19:15
DX: S00.01XA Abrasion of scalp, initial encounter (principal); Z91.030 Bee allergy status; Z88.2 Allergy status to sulfonamides; Z91.038 Other insect allergy status; Z23 Encounter for immunization; Z79.01 Long term (current) use of anticoagulants; W01.0XXA Fall on same level from slipping, tripping and stumbling without subsequent striking against object, initial encounter; Y92.009 Unspecified place in unspecified non-institutional (private) residence as the place of occurrence of the external cause
CPT/HCPCS: 99285; 90471; 36415; 93005; 86900; 86901; 84439; 80053; 84443; 83605; 83735; 84484; 85025; 85610; 85730; 86850; 80306; 72170; 71045; 72125; 70450; 90715; G0480; 80320

== ENCOUNTER → 2024-09-12 | Outpatient (CLI) | payer MEDICARE ==
--- NOTE | 2024-09-12 12:39 | FL ---
Modified barium swallow. HISTORY: Dysphagia. Modified barium swallow was performed with the department of speech pathology. The patient was prese nted with various consistencies of barium. There is deep penetration with thin liquid barium. No evidence for aspiration. Full report is to foll ow from the department of speech pathology. Impression: There is deep penetration with thin liquid barium. No evidence for aspiration. [facility], , 09/12/2024 12:37 PM
== END | disposition home or self-care (01) ==
LOC: RADFLMAIN 11:20
PROVIDERS: ATTEND Family Medicine
DX: R09.89 Other specified symptoms and signs involving the circulatory and respiratory systems (principal)
CPT/HCPCS: 74230